=== PATIENT | male | born 1950 | race Caucasian/White ===

== ENCOUNTER → 2016-10-22 | Outpatient (CLI) | payer OTHER ==
[~2016-10-22] MED LIST: ALBU2SYP9 INH; ASPI81TA28 PO; CARV25TA2 PO; DOCU-94 PO; ERGO500037 PO; FLUT0.15; FLUT1INH INH; FRCT/ PO; GLCSR5 PO; IBUP600T44 PO; IMD/2 PO; LORA-741 PO; LOSA50TA6 PO; METF-384 PO; MOME6000; NITR0.4D6 PO; OMEP1POW2 PO; OXYC-106 PO; POLY335019 PO; RANI300T2 PO; SIMV20TA2 PO; TRAZ100T29 PO
--- NOTE | 2016-10-22 09:50 | DIAGNOSTIC IMAGING REPORT ---
CHEST 2 VIEWS ROUTINE HISTORY: Atypical chest pain. COMPARISON: None. FINDINGS: The lungs are clear. Cardiac silhouette is normal in size. No pleural effusions. No pneumothorax. IMPRESSION: No acute process. Electronically signed by: Nirav Pace M.D. 10/22/2016 9:49 AM
--- NOTE | 2016-10-22 16:16 | EXERCISE STRESS ECHO ---
*NOTICE TO RECEIVING DEMOCRAT AGENCY This information is strictly Confidential and protected under [place] law. [place] law prohibits you from making any further disclosure of this information unless further disclosure is expressly permitted by the written consent of the person to whom it pertains or is authorized by law. A general authorization for the release of medical or other information is not sufficient for this purpose. Hospital accepts no responsibility if the information is made available to any other person, INCLUDING THE PATIENT. Interpretation Summary * Name: CHEMO PATHAK I Study Date: 10/22/2016 09:53 AM BP: 172/92 mmHg * Patient Location: [facility] HR: 58 * : 1950 (M/d/yyyy) Gender: Male Height: 68 in * Age: 66 yrs Ethnicity: [place] Weight: 167 lb * Performed By: Silvia Mallory RDCS * * Reason For Study: CHEST PAIN * BSA: 1.9 m2 * History: CHEST PAIN * Suboptimal stress test due to inadequate maximum heart rate. * -- Conclusions -- * 1.Stress echocardiogram with no obvious mocardial ischemia at submaximal heart rate (73% MPHR) and low workload (4 METS). * 2. Test terminated due to dyspnea, no chest discomfort noted. * 3. Blunted HR and hypertensive BP response to exercise (peak BP 207/108 mm Hg). * 4. Normal resting ECG. No ST changes during exercise, Borderline inferior ST depresssion (1.0 mm) with transient T wave inversions during early recovery, resolved 6 minutes into recovery. * 5. Sporadic PVCs at baseline which increased during exrecise. * 6. Resting echo with moderately reduced systolic function (EF=45%). Small area of inferobasal akinesis and moderate global hypokinesis. Post-exercise there was minor augmentation of all visible brown (Inferior base not visualized) and minimal reduction in LV cavity size (EF increased to 60%). Findings weigh against major focal ischemia, however unable to exclude ischemia at higher workload. * The left ventricle is mildly dilated. * There is mild concentric left ventricular hypertrophy. * Grade I diastolic dysfunction, (abnormal relaxation pattern). * Left ventricular systolic function is moderately reduced. * Ejection Fraction = 40-45%. * There is mild to moderate global hypokinesis of the left ventricle. * Small area of inferobasal akinesis. * There is mild tricuspid regurgitation. * Right ventricular systolic pressure is elevated at 30-40mmHg. Procedure Details * ECHOAMRITA, CPT #28252 * A contrast injection of Definity was performed to improve assessment of LV function. * Contrast was injected into an intravenous site in the left arm. * One vial of Definity ultrasound contrast was diluted in normal saline to a total volume of 10 ml. A total of '4' ml of solution was administered during imaging. * Lot # [id number] of Definity utilized for procedure. * Expiration date APR 03. * The attending nurse who injected the contrast agent was LUZ PACE RN. Left Ventricle * The left ventricle is mildly dilated. * There is mild concentric left ventricular hypertrophy. * Left ventricular systolic function is moderately reduced. * Ejection Fraction = 40-45%. * There is mild to moderate global hypokinesis of the left ventricle. * Small area of inferobasal akinesis. Right Ventricle * The right ventricle is normal in size and function. Atria * The left atrial size is normal. * Right atrial size is normal. * The interatrial septum is intact with no evidence for an atrial septal defect. Mitral Valve * The mitral valve is normal in structure and function. * Significant mitral regurgitation is absent. Tricuspid Valve * The tricuspid valve is normal in structure and function. * There is mild tricuspid regurgitation. * Right ventricular systolic pressure is elevated at 30-40mmHg. Aortic Valve * The aortic valve is normal in structure and function. * There is no significant aortic regurgitation. Pulmonic Valve * The pulmonary valve is inadequately visualized, but the Doppler data is adequate for interpretation. * There is no significant pulmonary regurgitation. Great Vessels * The aortic root is normal size. * No obvious dissection could be visualized. Pericardium * There is no pericardial effusion. Stress Parameters * Rest heart rate was '58' BPM. * Rest blood pressure was '172/92' * Maximum heart rate achieved was 112 bpm. * Maximum heart rate was 73 % of maximum age-predicted heart rate. * Maximum blood pressure was '207/108' * Total exercise time was '2:34' * Maximum exercise MET level achieved was '4.60' METS * Maximum treadmill speed was '1.7' miles per hour. * Maximum treadmill elevation was '10.00'% grade. * Exercise was terminated due to 'SOB' Left Ventricular Diastolic Function * Grade I diastolic dysfunction, (abnormal relaxation pattern). MMode 2D Measurements and Calculations IVSd 1.3 cm IVSs 2.1 cm LVIDd 4.8 cm LVIDs 3.8 cm LVPWd 0.94 cm LVPWs 1.7 cm IVS/LVPW 1.4 FS 19.3 % EDV(Teich) 105.1 ml ESV(Teich) 63.4 ml EF(Teich) 39.7 % EDV(cubed) 107.4 ml ESV(cubed) 56.5 ml EF(cubed) 47.4 % % IVS thick 61.3 % % LVPW thick 83.9 % LV mass(C)d 193.8 grams LV mass(C)dI 102.4 grams/m\S\2 LV mass(C)s 324.1 grams LV mass(C)sI 171.2 grams/m\S\2 SV(Teich) 41.7 ml SI(Teich) 22.0 ml/m\S\2 SV(cubed) 50.9 ml SI(cubed) 26.9 ml/m\S\2 Ao root diam 3.1 cm Ao root area 7.6 cm\S\2 LA dimension 3.4 cm LA/Ao 1.1 LVAd ap4 36.3 cm\S\2 LVLd ap4 9.9 cm EDV(MOD-sp4) 112.1 ml EDV(sp4-el) 113.2 ml LVAs ap4 26.6 cm\S\2 LVLs ap4 9.4 cm ESV(MOD-sp4) 68.2 ml ESV(sp4-el) 64.1 ml EF(MOD-sp4) 39.2 % EF(sp4-el) 43.4 % LVAd ap2 35.0 cm\S\2 LVLd ap2 9.8 cm EDV(MOD-sp2) 105.7 ml EDV(sp2-el) 106.3 ml LVAs ap2 28.2 cm\S\2 LVLs ap2 9.4 cm ESV(MOD-sp2) 75.3 ml ESV(sp2-el) 71.9 ml EF(MOD-sp2) 28.8 % EF(sp2-el) 32.4 % LVLd %diff -0.67 % EDV(MOD-bp) 109.3 ml LVLs %diff 0.44 % ESV(MOD-bp) 71.3 ml EF(MOD-bp) 34.8 % SV(MOD-sp4) 43.9 ml SI(MOD-sp4) 23.2 ml/m\S\2 SV(MOD-sp2) 30.4 ml SI(MOD-sp2) 16.1 ml/m\S\2 SV(MOD-bp) 38.0 ml SI(MOD-bp) 20.1 ml/m\S\2 SV(sp4-el) 49.2 ml SI(sp4-el) 26.0 ml/m\S\2 SV(sp2-el) 34.4 ml SI(sp2-el) 18.2 ml/m\S\2 Doppler Measurements and Calculations MV E max helder 50.0 cm/sec MV A max helder 83.9 cm/sec MV E/A 0.60 MV dec time 0.27 sec Ao V2 max 142.3 cm/sec Ao max PG 8.1 mmHg Ao max PG (full) 5.0 mmHg LV V1 max PG 3.1 mmHg LV V1 max 87.8 cm/sec TR max helder 224.8 cm/sec
--- NOTE | 2016-10-26 13:42 | CODING QUERY MEDICAL NECESSITY ---
SUPPORTING DIAGNOSIS NEEDED A supporting diagnosis is required for the test/procedure performed on this patient in order for us to be reimbursed by the patient's insurance. Please provide a supporting diagnosis for the following test/procedure listed below next to the test name along with your signature. *If there is no additional diagnosis for this patient that would support the following test/procedure please document that below next to the test/procedure. Test(s)/Procedure(s) that require a supporting diagnosis: DOS 10/22 * Stress Echo/Stress Test DIAGNOSIS: Provider Signature: Date: Thank you Rani Bellamy Health Information Management Once completed, please kindly fax back to [phone] For questions please call [phone]
--- NOTE | 2016-11-25 14:56 | EXERCISE STRESS ECHO ---
*NOTICE TO RECEIVING LIBERTARIAN AGENCY This information is strictly Confidential and protected under [place] law. [place] law prohibits you from making any further disclosure of this information unless further disclosure is expressly permitted by the written consent of the person to whom it pertains or is authorized by law. A general authorization for the release of medical or other information is not sufficient for this purpose. Hospital accepts no responsibility if the information is made available to any other person, INCLUDING THE PATIENT. Interpretation Summary * Name: CHEMO PATHAK I Study Date: 10/22/2016 09:53 AM BP: 172/92 mmHg * Patient Location: [facility] HR: 58 * : 1950 (M/d/yyyy) Gender: Male Height: 68 in * Age: 66 yrs Ethnicity: [place] Weight: 167 lb * Performed By: Silvia Mallory RDCS * * Reason For Study: CHEST PAIN * BSA: 1.9 m2 * History: CHEST PAIN * Suboptimal stress test due to inadequate maximum heart rate. * -- Conclusions -- * 1.Stress echocardiogram with no obvious myocardial ischemia at submaximal heart rate (73% MPHR) and low workload (4 METS). * 2. Test terminated due to dyspnea, no chest discomfort noted. * 3. Blunted HR and hypertensive BP response to exercise (peak BP 207/108 mm Hg). * 4. Normal resting ECG. No ST changes during exercise, Borderline inferior ST depresssion (1.0 mm) with transient T wave inversions during early recovery, resolved 6 minutes into recovery. * 5. Sporadic PVCs at baseline which increased during exrecise. * 6. Resting echo with moderately reduced systolic function (EF=45%). Small area of inferobasal akinesis and moderate global hypokinesis. Post-exercise there was minor augmentation of all visible brown (Inferior base not visualized) and minimal reduction in LV cavity size (EF increased to 60%). Findings weigh against major focal ischemia, however unable to exclude ischemia at higher workload. * The left ventricle is mildly dilated. * There is mild concentric left ventricular hypertrophy. * Grade I diastolic dysfunction, (abnormal relaxation pattern). * Left ventricular systolic function is moderately reduced. * Ejection Fraction = 40-45%. * There is mild to moderate global hypokinesis of the left ventricle. * Small area of inferobasal akinesis. * There is mild tricuspid regurgitation. * Right ventricular systolic pressure is elevated at 30-40mmHg. Procedure Details * ECHOEX, CPT #03498 * A contrast injection of Definity was performed to improve assessment of LV function. * Contrast was injected into an intravenous site in the left arm. * One vial of Definity ultrasound contrast was diluted in normal saline to a total volume of 10 ml. A total of '4' ml of solution was administered during imaging. * Lot # [id number] of Definity utilized for procedure. * Expiration date APR 03. * The attending nurse who injected the contrast agent was LUZ PACE RN. Left Ventricle * The left ventricle is mildly dilated. * There is mild concentric left ventricular hypertrophy. * Left ventricular systolic function is moderately reduced. * Ejection Fraction = 40-45%. * There is mild to moderate global hypokinesis of the left ventricle. * Small area of inferobasal akinesis. Right Ventricle * The right ventricle is normal in size and function. Atria * The left atrial size is normal. * Right atrial size is normal. * The interatrial septum is intact with no evidence for an atrial septal defect. Mitral Valve * The mitral valve is normal in structure and function. * Significant mitral regurgitation is absent. Tricuspid Valve * The tricuspid valve is normal in structure and function. * There is mild tricuspid regurgitation. * Right ventricular systolic pressure is elevated at 30-40mmHg. Aortic Valve * The aortic valve is normal in structure and function. * There is no significant aortic regurgitation. Pulmonic Valve * The pulmonary valve is inadequately visualized, but the Doppler data is adequate for interpretation. * There is no significant pulmonary regurgitation. Great Vessels * The aortic root is normal size. * No obvious dissection could be visualized. Pericardium * There is no pericardial effusion. Stress Parameters * Rest heart rate was '58' BPM. * Rest blood pressure was '172/92' * Maximum heart rate achieved was 112 bpm. * Maximum heart rate was 73 % of maximum age-predicted heart rate. * Maximum blood pressure was '207/108' * Total exercise time was '2:34' * Maximum exercise MET level achieved was '4.60' METS * Maximum treadmill speed was '1.7' miles per hour. * Maximum treadmill elevation was '10.00'% grade. * Exercise was terminated due to 'SOB' Left Ventricular Diastolic Function * Grade I diastolic dysfunction, (abnormal relaxation pattern). MMode 2D Measurements and Calculations IVSd 1.3 cm IVSs 2.1 cm LVIDd 4.8 cm LVIDs 3.8 cm LVPWd 0.94 cm LVPWs 1.7 cm IVS/LVPW 1.4 FS 19.3 % EDV(Teich) 105.1 ml ESV(Teich) 63.4 ml EF(Teich) 39.7 % EDV(cubed) 107.4 ml ESV(cubed) 56.5 ml EF(cubed) 47.4 % % IVS thick 61.3 % % LVPW thick 83.9 % LV mass(C)d 193.8 grams LV mass(C)dI 102.4 grams/m\S\2 LV mass(C)s 324.1 grams LV mass(C)sI 171.2 grams/m\S\2 SV(Teich) 41.7 ml SI(Teich) 22.0 ml/m\S\2 SV(cubed) 50.9 ml SI(cubed) 26.9 ml/m\S\2 Ao root diam 3.1 cm Ao root area 7.6 cm\S\2 LA dimension 3.4 cm LA/Ao 1.1 LVAd ap4 36.3 cm\S\2 LVLd ap4 9.9 cm EDV(MOD-sp4) 112.1 ml EDV(sp4-el) 113.2 ml LVAs ap4 26.6 cm\S\2 LVLs ap4 9.4 cm ESV(MOD-sp4) 68.2 ml ESV(sp4-el) 64.1 ml EF(MOD-sp4) 39.2 % EF(sp4-el) 43.4 % LVAd ap2 35.0 cm\S\2 LVLd ap2 9.8 cm EDV(MOD-sp2) 105.7 ml EDV(sp2-el) 106.3 ml LVAs ap2 28.2 cm\S\2 LVLs ap2 9.4 cm ESV(MOD-sp2) 75.3 ml ESV(sp2-el) 71.9 ml EF(MOD-sp2) 28.8 % EF(sp2-el) 32.4 % LVLd %diff -0.67 % EDV(MOD-bp) 109.3 ml LVLs %diff 0.44 % ESV(MOD-bp) 71.3 ml EF(MOD-bp) 34.8 % SV(MOD-sp4) 43.9 ml SI(MOD-sp4) 23.2 ml/m\S\2 SV(MOD-sp2) 30.4 ml SI(MOD-sp2) 16.1 ml/m\S\2 SV(MOD-bp) 38.0 ml SI(MOD-bp) 20.1 ml/m\S\2 SV(sp4-el) 49.2 ml SI(sp4-el) 26.0 ml/m\S\2 SV(sp2-el) 34.4 ml SI(sp2-el) 18.2 ml/m\S\2 Doppler Measurements and Calculations MV E max helder 50.0 cm/sec MV A max helder 83.9 cm/sec MV E/A 0.60 MV dec time 0.27 sec Ao V2 max 142.3 cm/sec Ao max PG 8.1 mmHg Ao max PG (full) 5.0 mmHg LV V1 max PG 3.1 mmHg LV V1 max 87.8 cm/sec TR max helder 224.8 cm/sec
== END | disposition home or self-care (01) ==
LOC: C.CPL 08:55
DX: I10 Essential (primary) hypertension (principal); R07.9 Chest pain, unspecified; R06.00 Dyspnea, unspecified

== ENCOUNTER → 2017-03-09 | Day surgery (SDC) | payer OTHER ==
[~2017-03-09] VITALS: Ht 172.7 cm; Wt 78.3 kg
[~2017-03-09] MED LIST changes: +D5W AND 1/2NSS 1,000 ML IV SCH; +OPTIRAY 320 IV PRN; +SODIUM CHLORIDE 0.9% IV SCH
[2017-03-09 07:05] VITALS: BP 137/69; PULSE 63; TEMP 37; O2SAT 97; Ht 172.7 cm; Wt 78.3 kg
--- NOTE | 2017-03-09 10:44 | DIAGNOSTIC IMAGING REPORT ---
CT ANGIOGRAM OF THE ABDOMEN AND PELVIS WITH BILATERAL LOWER EXTREMITY RUNOFF COMBO CLINICAL HISTORY: Peripheral vascular disease. COMPARISON STUDY: No priors. TECHNIQUE: Before and following the IV administration of 118 cc of Optiray 320, CT angiogram of the abdomen and pelvis with bilateral lower externally runoff was performed from the lung bases to the feet. Images are reviewed in the axial, sagittal, and coronal planes. 3-D MIPS images are created and assessed. IV contrast was administered without complication. CT DOSE: 2291.19 mGy.cm FINDINGS: Lower chest: The heart is enlarged and without pericardial effusion. The coronary arteries are densely calcified. Emphysematous change is suggested at the lung bases. No airspace consolidation or pleural effusion is identified. There is a small hiatal hernia. Liver: The contrast-enhanced liver is normal in size and contour. The liver demonstrates diffusely diminished attenuation consistent with hepatic steatosis. Fatty sparing is present adjacent to gallbladder fossa. There is no intrahepatic or ductal dilatation. The main portal veins are patent. Gallbladder: Unremarkable. Spleen: Top normal in size and normal in attenuation noting heterogeneous arterial phase enhancement. There are small calcified splenic granulomas. Pancreas: Atrophic and grossly unremarkable. Adrenal glands: Unremarkable. Kidneys: There is a 1.3 cm nonobstructing calculus in the upper pole of the left kidney. No right renal calculi are identified on the unenhanced series. The contrast enhanced kidneys are atrophic and without hydronephrosis. The kidneys enhance symmetrically. Numerous foci of cortical scarring are present in the left kidney. 2 exophytic cyst arises from the right kidney measuring up to 10 mm. Abdominal aorta and iliac arteries: There is advanced atherosclerotic calcification of the abdominal aorta and iliac arteries. The abdominal aorta and iliac arteries are patent. There is less than 50% stenosis within the right common iliac artery seen on image #271 secondary to soft plaque. No aneurysm is seen and no dissection is identified. Major branches of the abdominal aorta: The celiac trunk and inferior mesenteric arteries are widely patent. There is focal high-grade stenosis (approximately 75%) of the proximal superior mesenteric artery approximately 10 mm from its origin. The remainder of the superior mesenteric artery is widely patent. Hepatic arterial anatomy is conventional. The splenic artery is widely patent. There are 2 left renal arteries and 3 right renal arteries. The renal arteries are patent bilaterally with no evidence of high-grade stenosis. Right lower extremity runoff: There is advanced atherosclerotic calcification and irregularity seen throughout the arteries of the right lower extremity. There is approximately 50% stenosis within the right common femoral artery seen on image #392. The right profunda femoris artery is widely patent. There is approximately 50% stenosis at the origin of the right superficial femoral artery seen on image #432. There is advanced atherosclerotic irregularity with moderate diffuse luminal narrowing (approximately 50%) which extends approximately 5 cm seen involving the mid to distal superficial femoral artery. The popliteal artery is patent. There is three-vessel runoff to the foot. The calf arteries are diminutive, and there is diffuse atherosclerotic irregularity. No focal stenosis is seen. The dorsalis pedis artery is widely patent. Left lower extremity runoff: There is advanced atherosclerotic calcification and irregularity seen throughout the arteries of the left lower extremity. There is less than 50% luminal narrowing within the left common femoral artery secondary to atherosclerotic plaque. There is approximately thank you percent stenosis at the origin of the left common femoral artery as seen on axial image #431. The left profunda femoris artery is patent. There is atherosclerotic irregularity throughout the mid to distal left superficial femoral artery with no foci of high-grade stenosis identified. The left popliteal artery is patent. There is three-vessel runoff to the left foot. The calf arteries appear diminutive and demonstrate atherosclerotic irregularity with no foci of high-grade stenosis identified. The left dorsalis pedis artery is patent. Bowel: The small bowel and colon are normal in course and caliber. There is moderate colonic fecal retention. The appendix is well-visualized and normal. Peritoneum: There is no intraperitoneal free air or abdominal ascites. Lymphadenopathy: None. Pelvic viscera: The bladder, prostate, and seminal vesicles are normal as visualized. Skeletal structures: The skeletal structures are osteopenic. Mild lumbosacral spondylosis is observed. Degenerative change is seen in the hips and sacroiliac joints. No lytic or blastic bony lesions are seen. A cortical lag screw is present within the distal right femoral shaft and there is chronic posttraumatic deformity. Lower extremity soft tissues: The lower extremity musculature appears atrophic. No concerning soft tissue lesion is identified. There is asymmetric fatty atrophy is seen within the right vastus lateralis muscle, possibly related to remote injury. IMPRESSION: 1. The abdominal aorta is normal in caliber. No aneurysm or dissection is seen. 2. There is focal high-grade stenosis within the proximal superior mesenteric artery. 3. Peripheral vascular disease is identified within the right and left lower extremity with foci of approximately 50% stenosis seen within the right common femoral artery, as well as at the origin of both superficial femoral arteries. See discussion for detailed findings. 4. There is three-vessel runoff to the foot bilaterally. 5. Cardiomegaly and suspect emphysema. 6. Nonobstructing left renal calculus. 7. Hepatic steatosis. 8. Additional findings as detailed above. Electronically signed by: Gilmer Varma M.D. 03/09/2017 10:43 AM Dictated Date/Time: 03/09/2017 10:19 AM
== END | disposition home or self-care (01) ==
LOC: C.MTU 06:46 → EDSTATUS 07:00
PROVIDERS: ATTEND Surgery Vascular Surgery
DX: I65.29 Occlusion and stenosis of unspecified carotid artery (principal); I70.223 Atherosclerosis of native arteries of extremities with rest pain, bilateral legs; K55.1 Chronic vascular disorders of intestine; I51.7 Cardiomegaly; N20.0 Calculus of kidney; K76.0 Fatty (change of) liver, not elsewhere classified

== ENCOUNTER 2019-09-24 07:00 | Inpatient (IN) ==
[~2019-09-24 07:00] MED LIST changes: -ALBU2SYP9 INH; -ASPI81TA28 PO; -CARV25TA2 PO; -D5W AND 1/2NSS 1,000 ML IV SCH; -DOCU-94 PO; -ERGO500037 PO; -FLUT0.15; -FLUT1INH INH; -FRCT/ PO; -GLCSR5 PO; -IBUP600T44 PO; -IMD/2 PO; -LORA-741 PO; -LOSA50TA6 PO; -METF-384 PO; -MOME6000; -NITR0.4D6 PO; -OMEP1POW2 PO; -OPTIRAY 320 IV PRN; -OXYC-106 PO; -POLY335019 PO; -RANI300T2 PO; +RAPID SEQUENCE INDUCTION BAG ONE; -SIMV20TA2 PO; -SODIUM CHLORIDE 0.9% IV SCH; -TRAZ100T29 PO
[2019-09-24] MEDS ORDERED: fentaNYL citrate 100 MCG/2 ML VIAL ONE ×2 (07:07→07:39)
[2019-09-24] MEDS ORDERED: MIDAZOLAM HCL 5 MG/ML VIAL ONE (07:07)
[2019-09-24 07:28] LABS: iSTAT Creatinine 1.1 mg/dl (0.6-1.3); iSTAT Hemoglobin 16.3 g/dl (14.0-18.0); iSTAT Ionized Calcium 1.18 mmol/l (1.12-1.32); iSTAT Potassium 5.9 mEq/L (3.3-5.0)
[2019-09-24] MEDS ORDERED: SODIUM CHLORIDE 0.9% 1000ML 1,000 ML IV SCH ×2 (07:30→09:15)
[2019-09-24] MEDS ORDERED: HEPARIN (PORCINE) 1000 UNIT/ML 10 ML (CATH LAB USE ONLY) ONE (07:38)
[2019-09-24] MEDS ORDERED: NiCARDipine HCL INJ 2.5 MG/ML 10 ML AMP ONE (07:38)
--- NOTE | 2019-09-24 07:38 | XRay Report ---
XR chest 1V portable HISTORY: 69 years-old Male Chest pain acute atypical chest pain COMPARISON: Chest radiographs 10/22/2016 TECHNIQUE: Portable AP view of the chest FINDINGS: Endotracheal tube terminates 4.2 cm superior to the rohini. Calcified plaque of the thoracic aortic a rch. No pneumothorax, pleural effusion, focal airspace consolidation or overt pulmonary edema. Cardia c silhouette is enlarged. Degenerative changes of the shoulders and spine. IMPRESSION: 1. Endotracheal tube terminates 4.2 cm superior to the rohini. 2. Cardiomegaly. The above report was generated using voice recognition software. It may contain grammatical, syntax o r spelling errors. Electronically signed by: Damon Cao M.D. 09/24/2019 7:36 AM
[2019-09-24] MEDS ORDERED: MIDAZOLAM HCL 1 MG/ML 2ML VIAL ONE (07:39)
[2019-09-24] MEDS ORDERED: NITROGLYCERIN/D5W 100MCG/ML 20ML SYR ONE (07:40)
[2019-09-24 07:52] LABS: INR 1.3 (0.9-1.1); Partial Thromboplastin Ratio 0.9; Partial Thromboplastin Time 25.4 Seconds (21.0-31.0)
[2019-09-24 08:00] LABS: Basophils # (auto) 0.01 K/uL (0-0.2); Basophils % (auto) 0.1 %; Eosinophils # (auto) 0.11 K/uL (0-0.5); Eosinophils % (auto) 1.3 %; Hematocrit (blood only) 48.4 % (42-52); Hemoglobin 17.1 g/dL (14.0-18.0); Immature Granulocytes # (auto) 0.02 K/uL (0.00-0.02); Immature Granulocytes % (auto) 0.2 %; Lymphocytes # (auto) 1.23 K/uL (1.2-3.4); Lymphocytes % (auto) 14.5 %; Mean Corpuscular Hemoglobin 32.3 pg (25-34); Mean Corpuscular Hgb Conc 35.3 g/dL (32-36); Mean Corpuscular Volume 91.3 fL (80-100); Monocytes # (auto) 0.59 K/uL (0.11-0.59); Monocytes % (auto) 6.9 %; Neutrophils # (auto) 6.55 K/uL (1.4-6.5); Platelet Count 95 K/uL (130-400); Platelet Estimate Decreased (Normal); RDW Coefficient of Variation 14.3 % (11.5-14.5); RDW Standard Deviation 46.8 fL (36.4-46.3); White Blood Count 8.51 K/uL (4.8-10.8)
[2019-09-24] MEDS ORDERED: DOPAMINE / D5W 400 MG/250 ML BAG IV SCH (08:00)
[2019-09-24 08:16] LABS: Albumin Globulin Ratio 1.3 (0.9-2); Albumin Level 3.4 gm/dl (3.4-5.0); BUN Creatinine Ratio 13.1 (10-20); Bilirubin,Total 0.9 mg/dl (0.2-1); Calcium 8.5 mg/dl (8.5-10.1); Creatine Kinase MB 3.3 ng/ml (0.5-3.6); Creatinine Clr Calc Pharmacy 62.6 ml/min; Est GFR (African American) 70.1; Est GFR (Non-African American) 60.5; Globulin 2.6 gm/dl (2.5-4.0); Magnesium 1.4 mg/dl (1.8-2.4); Potassium 6.1 mmol/L (3.5-5.1); Thyroid Stimulating Hormone 1.01 uIu/ml (0.300-4.500); Troponin I 0.016 ng/ml (0-0.045)
[2019-09-24] MEDS ORDERED: SODIUM BICARB 8.4% INJ 50 MEQ/50 ML SYR ONE (08:16)
[2019-09-24] MEDS ORDERED: CALCIUM CHLORIDE 10% 10 ML SYR IV ONE (08:16)
[2019-09-24] MEDS ORDERED: MAG SULFATE 50% 1GM/2ML VIAL IV ONE (08:30)
[2019-09-24] MEDS ORDERED: INSULIN HUMAN REGULAR PER UNIT 10 UNITS in SYRINGE 9.9 ML IV ONE (08:45)
[2019-09-24] MEDS ORDERED: HydrALAZINE HCL 20 MG/ML VIAL ONE (08:47)
[2019-09-24 08:54] LABS: Beta-Hydroxybutyrate 6.03 mg/dl (0.2-2.81)
[2019-09-24] MEDS ORDERED: ICU PROTOCOL FOR HYPERGLYCEMIA PRN ×2 (09:07→09:28)
--- NOTE | 2019-09-24 09:17 | Pre Anesthesia Assessment ---
Date of Service September 24, 2019 Pre Sedation Assessment Vital Signs Temp Pulse Pulse Resp BP BP Pulse Ox 09/24/19 08:18 20 09/24/19 08:10 69 100 09/24/19 07:49 80 16 99 09/24/19 07:43 80 16 78/52 L 96 09/24/19 07:41 80 100 09/24/19 07:40 80 100 09/24/19 07:39 80 100 09/24/19 07:32 80 16 97 09/24/19 07:21 80 18 120/70 96 09/24/19 07:01 97.7 F 80 18 86/37 L 96 Cardiovascular + regular rhythm Respiratory + respiratory effort normal Pre-Sedation Airway Assessment Smoking Status: Unknown if ever smoked Hx Sleep Apnea: No Hx Difficult Intubation: No Short, Thick Neck: No Thyromental Distance: > or= 3.5 Finger Breadths Oral Cavity: + WNL Mallampati Class: III ASA: ASA4 Procedure Planning Contraindications for Sedation: none Current Medications Reviewed: Yes Notes The planned sedation has been discussed with the patient. Informed Consent was obtained. I have identified the patient, determined the appropriateness of sedation and have assessed the patient immediately prior to the procedure. All medicine(s) and interventions are by my order.
--- NOTE | 2019-09-24 09:18 | Post Anesthesia Assessment ---
Date of Service September 24, 2019 Post Sedation Assessment Vital Signs Temp Pulse Pulse Resp BP BP Pulse Ox 09/24/19 08:18 20 09/24/19 08:10 69 100 09/24/19 07:49 80 16 99 09/24/19 07:43 80 16 78/52 L 96 09/24/19 07:41 80 100 09/24/19 07:40 80 100 09/24/19 07:39 80 100 09/24/19 07:32 80 16 97 09/24/19 07:21 80 18 120/70 96 09/24/19 07:01 97.7 F 80 18 86/37 L 96 Recovery Score Activity: Moves 4 extremities Respiration: Deep Breath/Cough Circulation: +/-20% PreAnes Value Consciousness: Nonresponsive Oxygen Saturation: O2 needed for >90% Discharge Sedation Level of Care: Higher Level of Care Post Sedation Plan On clinical assessment, the patient appears to have tolerated the sedation without complications. Patient is recovering as anticipated. Patient will continue to be monitored by nursing and may be discharged when sedation discharge criteria are met per below protocol. Upon Completions of procedure up to 15 minutes continue every 5 minute vital signs and the P.A.R. score; then discharge to a Phase I or Fast Track to Phase II per the following guidelines: * Discharge Patient to appropriate Phase II area if PAR is 8 or greater or return to pre- procedure baseline. The post - procedure orders will be as directed. * If PAR score is less than 8 or not return to pre-procedure baseline then patient will follow Phase I monitoring till PAR is reached for Phase II. The Phase I may be done in procedure room or may call to secure a Phase I area. * If naloxone or flumazenil are used for reversal, hold in Phase I for continued monitoring from when last reversal dose was given for a minimum of 60 minutes or longer pending the nurse and/or physician discretion of patient condition before discharge to Phase II. Please call the Sedation Physician to re-evaluate and complete post-note for discharge to Phase II area. Do NOT discharge from procedure sedation or Phase 1 until post- sedation evaluation note is complete by procedure /sedation MD Sedation Discharge Instructions to be given to the patient at discharge to home.
--- NOTE | 2019-09-24 09:27 | CT Scan Report ---
CT head/brain wo con CLINICAL HISTORY: 69 years-old Male with altered mental status. Acutely altered mental status TECHNIQUE: Multiple axial CT images of the head were obtained without contrast. A dose lowering tech nique was utilized adhering to the principles of ALARA. CT DOSE: 1228.53 mGy.cm COMPARISON: CTA of the head 06/18/2016, brain MRI 06/17/2016 FINDINGS: Motion degraded exam. The study was repeated. Age-related involutional changes. Patchy white matter h ypodensities suggest chronic microvascular ischemic disease. 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 Cerebral vascular calcifications noted. No acute intracranial he morrhage, midline shift, intracranial mass, hydrocephalus, territorial ischemia or abnormal extra-axi al collection. No acute calvarial fracture. Mastoid air cells are clear. Secretions are noted within the nasal turbi nates and nasal pharynx. Endotracheal tube is noted, partially imaged. Soft tissues are within normal limits. IMPRESSION: 1. Motion degraded exam without acute intracranial abnormality identified. 2. Partially imaged endotracheal tube with nasopharyngeal secretions. The above report was generated using voice recognition software. It may contain grammatical, syntax o r spelling errors. Electronically signed by: Damon Cao M.D. 09/24/2019 9:26 AM
[2019-09-24] MEDS ORDERED: MAGNESIUM SULFATE / D5W 1 GM/100 ML BAG IV ONE (09:35)
--- NOTE | 2019-09-24 09:44 | Cardiac Catheterization ---
[facility] Data: [facility] Cardiac Status Clinical evaluation leading to the procedure CAD Presenation: Unstable angina Anginal Classification: CCS IV Heart Failure: No Cardiogenic Shock within 24 Hours: Yes Cardiac Arrest within 24 Hours: No Imaging Studies Past 6 Months: No Stress Studies Past 6 Months: No Diagnostic Physicians Name: Shaquille Hartman MD Status: Elective Closure Device Percutaneous Entry Location: Femoral Closure Device: Mynx and Radial Band Recommendations: Medical Therapy and/or Counseling Intraprocedure Events Significant Disection: No Perforation: No Cardiac Cath Procedure Full Procedure Date September 24, 2019 Pre-Procedure Diagnosis Pre-Procedure Diagnosis: Acute Coronary Syndrome and Cardiothoracic Symptom (heart block) AUC Score AUC Score: 7 Post-Procedure Diagnosis Post-Procedure Diagnosis: Moderate CAD, Normal LV Systolic Function and Normal Intracardiac Pressures Procedure(s) Performed Procedure(s) Performed: Coronary Angiography, Left Heart Cath, LV Angiography and Temporary Pacemaker [employer] Software Developer Shaquille Hartman MD Assistant Manager Trainee(s) Enmanuel Estimated Blood Loss Estimated Blood Loss: 15 Medication(s) Medication(s): Fentanyl, Heparin, Lidocaine 1% and Versed Medication(s): dopamine, hydralazine Summary of Findings Indication: Suspected ACS Cardiac risk factors, syncope at home in the setting of chest pressure and bradycardia/heart block. Intubated in the ED following transcutaneous pacing, unresponsiveness and hemodynamic instability requiring dopamine. Access: 6 Fr slender right radial artery, 6 Fr right common femoral artery, 6 Fr right common femoral vein Catheters: JL4, JR4, pigtail Patient arrived to [facility] on dopamine infusion being transcutaneously paced. 6 Fr right common femoral vein sheath placed and transvenous pacer placed. Right radial artery access obtained. Attempted to perform coronary angiography via radial artery but unable to navigate catheter to aorta in the setting of possible brachial artery dissection. Catheter removed and femoral access obtained. During procedure hypertensive up to 220s. Dopamine discontinued. Hyperkalemia treated with sodium bicarbonate, insulin and received magnesium. Had return of sinus rhythm in the 70s. Pacemaker back-up settings VVI 50 bpm, output of 5 mA. During procedure patient with nonpurposeful movements and unable to follow commands. Sent for head CT post procedure. Findings: LM -moderate caliber, luminal irregularities LAD -medium caliber, mild diffuse proximal to mid disease, 50% stenosis and small distal LAD with associated myocardial bridging. LAD extends around apex. Inferior branch of small second diagonal with moderate disease. Circumflex -medium caliber vessel, proximal to mid luminal irregularities. Distal AV groove portion small with diffuse up to 70% disease prior to small PLB. High OM1 with 40 to 50% proximal stenosis. Medium caliber OM 2 with 50 to 60% stenosis. RCA -dominant, large caliber, 20% mid segment disease, distal luminal irregularities, 20% ostial PDA. LVEDP -16 Arterial Closure: TR band, Mynx Summary: 1. Moderate nonobstructive coronary artery disease -50% small distal LAD with myocardial bridging High OM1 40 to 50% proximal OM2 50 to 60% Small distal circumflex 60 to 70% 2. Normal intracardiac filling pressure 3. Successful transvenous pacemaker placement. Final settings, VVI 50 bpm, 5 mA Recommendations: Admit to ICU Further evaluation for reversible, nonischemic causes of heart block. Continue to hold beta-ramón. Check echocardiogram Evaluation by EP for possible pacemaker tomorrow Hemodynamics Rest Ao:: 150/93/120 Final Ao: 199/85/128 LV: 194/16 Recommendations Recommendations: Medical Therapy and/or Counseling Specimens Specimens: None Radiation Exposure (mGy) 1344 Contrast (mls) 95 Fluids (cc crystalloids) Fluids (cc crystalloids): 92 Drains Drains: None Anesthesia Moderate Procedural Complication(s) None Disposition PCU I attest to the content of the Intraoperative Record and any orders documented therein. Any exceptions are noted below. [facility] Card Cath Procedure Codes Cardiac Catheterization Procedure 1: Cardiovascular Cath Procedures: 14162 Coronaries and LHC (+/-LV) Therapeutic Services & Ancillary Proc Procedure 1: Cardiovascular Tx and Anc Procedures: 18732 Temp Pacer Insert Moderate Sedation Procedure 1: Sedation/Anesthesia: 74758 Mod Sedation by the same physician;Init15 Min Child Age 5 & Up Procedure 2: Sedation/Anesthesia: 13127 Mod Sedation by the same physician; Ea [id number] Minutes PG Care Time/CCT Total # of Minutes Spent Total Time Spent with Patient: Total time spent is greater than 50% in coordination of care (as documented) at patient's floor/unit and/or counseling patient:
--- NOTE | 2019-09-24 10:05 | Cardiology Consultation ---
Date of Consultation September 24, 2019 Assessment & Plan (1) Symptomatic bradycardia: 2. Apparent high degree AV block 3. Transient cardiogenic shock 4. Moderate nonobstructive coronary artery disease 5. Hyperkalemia, hypomagnesemia 6. Hypertension 7. Type 2 diabetes No evidence of acute ischemic heart disease on catheterization. Etiology of patient's symptomatic bradycardia/heart block unclear but potentially related to electrolyte abnormalities, high-dose beta-ramón. Further evaluation for potential reversible causes, thyroid, Lyme pending. Check echocardiogram. Continue to hold beta-ramón. Correct electrolytes. Further evaluation by EP tomorrow. (2) Quit smoking: (3) Smoking greater than 30 pack years: History of Present Illness Attending Physician: Pipo Garcia DO History of Present Illness Mr. Ambrosio was seen in the setting of a heart alert called in the ED. At time of arrival patient was intubated, sedated being transcutaneously paced and on 5 mcg of dopamine. History obtained from ED physician and staff. Reportedly patient had had a syncopal episode within the last week or 2. Today reportedly had chest discomfort and presyncopal symptoms while sitting watching TV. Upon EMS arrival bradycardic with indeterminate underlying rhythm. Hypotensive and transcutaneous pacing started. On arrival to ED initially awake, alert, conversant with systolic pressures in the 80s while being transcutaneously paced. One EKG in between pacing with what appears to be just P waves. Later reportedly became increasingly hypotensive, unresponsive requiring intubation. Taken emergently to Acoustic Sensor Operator for transvenous pacemaker. Pacemaker placed via right common femoral vein. Patient had return of sinus rhythm with heart rate in the 70s. Coronary angiography revealed only moderate nonobstructive disease. Patient hypertensive during catheterization dopamine discontinued and received IV hydralazine. Hyperkalemic to 6.1 and treated with bicarbonate, insulin. Magnesium supplemented. At the end the procedure patient remained in sinus rhythm, transvenous pacemaker left in place at VVI 50 bpm. During procedure there was concern for possible neurologic event the setting of nonpurposeful movements, nonresponsiveness was sent for head CT prior to transfer to ICU. Allergies Allergy/AdvReac Type Severity Reaction Status Date / Time No Known Allergies Allergy Verified 09/24/19 07:40 Home Medications Home Medications Medication Instructions Recorded Confirmed Type albuterol sulfate [Ventolin HFA] 2 puff INHALATION Q4H PRN 09/24/19 09/24/19 History aspirin 81 mg PO DAILY 09/24/19 09/24/19 History carvedilol 25 mg PO BID 09/24/19 09/24/19 History cholecalciferol (vitamin D3) 5,000 unit PO DAILY 09/24/19 09/24/19 History [Vitamin D3] [id number] 0 ea INHALATION DAILY 09/24/19 09/24/19 History [Trelegy Ellipta] gabapentin 300 mg PO TID 09/24/19 09/24/19 History lorazepam 0.5 mg PO DAILY PRN 09/24/19 09/24/19 History losartan 50 mg PO DAILY 09/24/19 09/24/19 History metformin 500 mg PO QDD 09/24/19 09/24/19 History nitroglycerin 0.4 mg SUBLINGUAL UD PRN 09/24/19 09/24/19 History omeprazole 40 mg PO DAILY 09/24/19 09/24/19 History oxycodone-acetaminophen 1 tab PO QID PRN 09/24/19 09/24/19 History ropinirole 1 mg PO DAILY 09/24/19 09/24/19 History simvastatin 20 mg PO DAILY 09/24/19 09/24/19 History trazodone 150 mg PO HS 09/24/19 09/24/19 History Patient History Medical History Anemia Asthma Atherosclerosis Diabetes Hyperkalemia (Resolved) Kidney stones Thrombocytopenia Family History Other Diabetes Hypertension Social History Preferred Language: Montenegrin Communication Ability: Effective Beliefs That Will Affect Care: None marital status: Current Living Situation: Spouse current occupational status: retired Other Information That Helps Us Care for You: No Feels Safe at Home: Yes Safety Concerns: Feels Safe At This Time Smoking Status: Former smoker Hx Alcohol Use: Yes Alcohol type: beer Hx Substance Use: Yes substance use type: does not use Review of Systems Review of Systems: Unobtainable due to endotracheal tube Physical Exam Physical Exam: General: Intubated sedated HEENT: Sclerae anicteric, mucous membranes moist Lungs: Clear to auscultation bilaterally Cardiac: Regular rate and rhythm, no murmurs. Abdomen: Soft, nontender, nondistended Extremities: Warm, well perfused, no edema. 2+ radial pulses Skin: No rashes or lesions. Results & Data Vital Signs (Past 12 Hours) Vital Signs Temp Pulse Pulse Resp BP BP Pulse Ox 09/24/19 09:16 100 H 21 77 L 09/24/19 08:54 74 100 09/24/19 08:18 20 09/24/19 08:10 69 100 09/24/19 07:49 80 16 99 09/24/19 07:43 80 16 78/52 L 96 09/24/19 07:41 80 100 09/24/19 07:40 80 100 09/24/19 07:39 80 100 09/24/19 07:32 80 16 97 09/24/19 07:21 80 18 120/70 96 09/24/19 07:01 97.7 F 80 18 86/37 L 96 PG Care Time/CCT Total # of Minutes Spent Total Time Spent with Patient: Total time spent is greater than 50% in coordination of care (as documented) at patient's floor/unit and/or counseling patient:
--- NOTE | 2019-09-24 10:13 | XRay Report ---
XR chest 1V portable HISTORY: 69 years-old Male lines status post extubation COMPARISON: Chest radiograph 09/24/2019 TECHNIQUE: Supine AP view of the chest FINDINGS: Status post removal of the endotracheal tube. Calcified plaque of the thoracic aortic arch. Cardiac m ediastinal and hilar silhouettes are unchanged. No pneumothorax, pleural effusion, focal airspace con solidation or overt pulmonary edema. Degenerative changes of the shoulders and spine. IMPRESSION: 1. Status post extubation. 2. No acute processes of the chest The above report was generated using voice recognition software. It may contain grammatical, syntax o r spelling errors. Electronically signed by: Damon Cao M.D. 09/24/2019 10:12 AM
--- NOTE | 2019-09-24 10:24 | Critical Care Consultation ---
Date of Consultation September 24, 2019 Assessment & Plan (1) Symptomatic bradycardia: Reason Critically Ill: 69-year-old male with symptomatic bradycardia probable complete heart block PLAN: Neuro: Syncope -Likely cardiogenic in origin Resp: Asthma -Patient denied smoking history however he exhibits clinical signs of longstanding tobacco use including fingernail clubbing CV: Complete heart block -At risk for Lyme disease given prior occupation and hunting activities -Continue transvenous pacemaker -Currently [place] rhythm not electrically paced -Holding beta-ramón Fluids/Renal: Hyperkalemia -In isolation without elevated creatinine will recheck labs ID: Skin rash most consistent with tinea corporis -Differential includes pityriasis, psoriasis -Given poor glycemic control we will use a topical fungal medication at this time Onychomycoses of lower extremity nails -Defer treatment to primary care GI/Nutrition: Heart healthy diet as tolerated -Plan n.p.o. once decision is made regarding possible permanent pacemaker placement Heme: Increased RDW -We will defer to primary care physician, suspect early stages of anemia DVT prophylaxis: Lovenox 40 mg subcu Endocrine: ICU hyperglycemia protocol Hyperglycemia Suspect poorly controlled diabetes mellitus -A1c pending -Elevated beta hydroxybutyrate Vascular access: Peripheral IVs Code Status: Full code Present on Admission?: Yes (2) Diabetes: Check A1c Present on Admission?: Yes (3) Hyperkalemia: Factitious: Likely secondary to hemolysis with initial lab draw Present on Admission?: Yes (4) Hypomagnesemia: Present on Admission?: Yes (5) Onychomycosis: Present on Admission?: Yes (6) Hypertension 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 Glucose remains elevated I have started the patient on subcutaneous insulin anticipate poor glycemic control. Patient does have transaminitis I suspect fatty tissue liver disease however we will send acute hepatitis panel as he has not had this tested previously. Patient does have [id number] smoking history which he quit in 1998 and he uses inhalers for symptomatic shortness of breath. Elevated lactate minimally out of range, I suspect this will normalize as the patient is in no acute distress at this time I will not recheck. Patient is hypertensive, given the con commitment conduction system issues I am not going to initiate beta-blockers nor calcium channel ramón at this time, while not optimal I suspect this is longstanding hypertensive disease and would treat only in the setting of evidence of end- organ damage or active chest pain. History of Present Illness Attending Physician: Pipo Garcia DO Initial history is obtained from Dr. Hartman interventional cardiology. Per report the patient was feeling extremely ill and felt like he was going to pass out and pass away, his called 911, reportedly EMS monitor showed heart block and he was transcutaneously paced, while in transport the patient became unresponsive and required intubation. The patient was noted to be hypotensive dopamine was started and a heart alert was called for possible acute coronary syndrome and complete heart block. Per verbal report in the [facility] the coronaries did not demonstrate a occlusion indicative of acute coronary syndrome, a temporary transvenous pacemaker was placed in the right femoral groin, the patient became hypertensive and the dopamine infusion was discontinued. There was report that the patient was shaking possibly exhibiting signs of seizure activity, he was transferred to the CT scan to obtain a noncontrast CT of the head prior to transfer to the ICU. Upon his arrival in the ICU the patient was shaking which at first I thought may have represented generalized tonic-clonic activity; however, when the bedside nurse stated "it was reported that he fell" the patient shook his head yes. The patient was able to follow complex 2 step commands. At this point I believe the shaking was actually to attempt to get attention and the patient was extubated shortly thereafter. For me the patient was alert and remembers all events leading up to intubation. He states he had fallen and struck his head against the sink while shaving a couple of days ago and had several presyncopal episodes in the previous days. This morning he felt extremely ill, nauseous, felt that he was going to pass out and I had a overall feeling of impending doom. He told his to call 911 and he remembers riding in the ambulance. Currently he denies chest pain or shortness of breath, fevers chills nausea nor vomiting. He denies family history of venous thromboembolism denies family history of autoimmune disorders: Lupus, rheumatoid arthritis. 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 Past medical history includes diabetes on oral medication, denies cardiac disease denies stroke denies being on blood thinners largely does not know the name of his medications denies any drug allergies Surgical history: Inguinal hernia repair. Allergies Allergy/AdvReac Type Severity Reaction Status Date / Time No Known Allergies Allergy Verified 09/24/19 07:40 Home Medications Home Medications Medication Instructions Recorded Confirmed Type albuterol sulfate [Ventolin HFA] 2 puff INHALATION Q4H PRN 09/24/19 09/24/19 History aspirin 81 mg PO DAILY 09/24/19 09/24/19 History carvedilol 25 mg PO BID 09/24/19 09/24/19 History cholecalciferol (vitamin D3) 5,000 unit PO DAILY 09/24/19 09/24/19 History [Vitamin D3] [id number] 0 ea INHALATION DAILY 09/24/19 09/24/19 History [Trelegy Ellipta] gabapentin 300 mg PO TID 09/24/19 09/24/19 History lorazepam 0.5 mg PO DAILY PRN 09/24/19 09/24/19 History losartan 50 mg PO DAILY 09/24/19 09/24/19 History metformin 500 mg PO QDD 09/24/19 09/24/19 History nitroglycerin 0.4 mg SUBLINGUAL UD PRN 09/24/19 09/24/19 History omeprazole 40 mg PO DAILY 09/24/19 09/24/19 History oxycodone-acetaminophen 1 tab PO QID PRN 09/24/19 09/24/19 History ropinirole 1 mg PO DAILY 09/24/19 09/24/19 History simvastatin 20 mg PO DAILY 09/24/19 09/24/19 History trazodone 150 mg PO HS 09/24/19 09/24/19 History Patient History Medical History Anemia Asthma Atherosclerosis Diabetes Kidney stones Thrombocytopenia Family History Other Family history non-contributory Social History Preferred Language: Armenian marital status: Current Living Situation: Spouse current occupational status: retired Smoking Status: Unknown if ever smoked Review of Systems Review of Systems: All systems reviewed & are unremarkable except as noted in HPI & below Physical Exam Physical Exam: General: Well-nourished male who appears his stated age I have reviewed the recorded vital signs Neurological: RASS score: 1, Moves all 4 extremities, GCS 15, non focal neuro exam Psychological: GCS 15 follows complex commands, oriented, appropriate Eyes: Pupils are equal, round and reactive to light, anicteric sclera. Symmetrical lids. HENT: Oropharynx is clear, moist Mucous Membranes. Neck: Supple. Symmetric. trachea midline. No thyromegaly. Cardiovascular: Normal peripheral perfusion. Distal pulses and capillary refill intact. No JVD. Respiratory: Respirations are non-labored, no accessory muscle use. Breath sounds are equal. Gastrointestinal: Soft. Non-distended. Lymphatic: No cervical lymphadenopathy. Musculoskeletal: No deformity. Mild clubbing of upper extremity digits no cyanosis. Temporary catheter in right groin Skin: Erythematous papules around the face most consistent with tinea infection differential could include psoriasis Nails: Thickened yellow nails of lower extremity consistent with onychomycoses Results & Data Vital Signs (Past 12 Hours) Vital Signs Temp Pulse Pulse Resp BP BP Pulse Ox 09/24/19 09:16 100 H 21 77 L 09/24/19 08:54 74 100 09/24/19 08:18 20 09/24/19 08:10 69 100 09/24/19 07:49 80 16 99 09/24/19 07:43 80 16 78/52 L 96 09/24/19 07:41 80 100 09/24/19 07:40 80 100 09/24/19 07:39 80 100 09/24/19 07:32 80 16 97 09/24/19 07:21 80 18 120/70 96 09/24/19 07:01 36.5 C 80 18 86/37 L 96 Laboratory Results 09/24/19 09/24/19 09/24/19 Range/Units 10:00 10:00 10:00 WBC (4.8-10.8) K/uL RBC (4.7-6.1) M/uL Hgb (14.0-18.0) g/dL POC Hgb (14.0-18.0) g/dl Hct (42-52) % POC Hct (42-52) % MCV (80-100) fL MCH (25-34) pg MCHC (32-36) g/dL RDW Std Deviation (36.4-46.3) fL RDW Coeff of Stephanie (11.5-14.5) % Plt Count (130-400) K/uL MPV (7.4-10.4) fL Immature Gran % (Auto) % Neut % (Auto) % Lymph % (Auto) % Baxter % (Auto) % Eos % (Auto) % Baso % (Auto) % Immature Gran # (Auto) (0.00-0.02) K/uL Neut # (Auto) (1.4-6.5) K/uL Lymph # (Auto) (1.2-3.4) K/uL Baxter # (Auto) (0.11-0.59) K/uL Eos # (Auto) (0-0.5) K/uL Baso # (Auto) (0-0.2) K/uL Platelet Estimate (Normal) PT (9.0-12.0) Seconds INR (0.9-1.1) APTT (21.0-31.0) Seconds PTT Ratio POC Sodium (135-144) mEq/L Sodium Pending (136-145) mmol/L POC Potassium (3.3-5.0) mEq/L Potassium Pending (3.5-5.1) mmol/L POC Chloride (101-112) mEq/L Chloride Pending (98-107) mmol/L Carbon Dioxide Pending (21-32) mmol/L POC Total CO2 (24-31) mEq/l Anion Gap Pending (3-11) POC Anion Gap (16-25) mmol/L POC BUN (7-18) mg/dl BUN Pending (7-18) mg/dl Creatinine Pending (0.6-1.4) mg/dl POC Creatinine (0.6-1.3) mg/dl Est Cr Clr Drug Dosing Pending ml/min Est GFR ( Amer) Pending Est GFR (Non-Af Amer) Pending BUN/Creatinine Ratio Pending (10-20) Glucose Pending (70-99) mg/dl POC Glucose (70-99) POC Glucose (other) (70-99) mg/dl Lactate Pending Calcium Pending (8.5-10.1) mg/dl POC Ioniz Calcium Ky (1.12-1.32) mmol/l Ionized Calcium Phosphorus Pending Magnesium Pending (1.8-2.4) mg/dl Total Bilirubin Pending (0.2-1) mg/dl Direct Bilirubin Pending AST Pending (15-37) U/L ALT Pending (12-78) U/L Alkaline Phosphatase Pending (45-117) U/L Total Creatine Kinase (39-308) U/L CK-MB (CK-2) (0.5-3.6) ng/ml CK/CKMB % Calc (0-3.0) POC Troponin I (0-0.045) ng/ml Troponin I Cancelled Pending (0-0.045) ng/ml Total Protein Pending (6.4-8.2) gm/dl Albumin Pending (3.4-5.0) gm/dl Globulin (2.5-4.0) gm/dl Albumin/Globulin Ratio (0.9-2) Lipase (73-393) U/L Beta-Hydroxybutyric Acd (0.2-2.81) mg/dl TSH (0.300-4.500) uIu/ml Thyroxine (T4) Lyme Disease IgG Ab Lyme Disease IgM Ab Blood Type Antibody Screen 09/24/19 09/24/19 09/24/19 Range/Units 09:59 09:59 09:59 WBC (4.8-10.8) K/uL RBC (4.7-6.1) M/uL Hgb (14.0-18.0) g/dL POC Hgb (14.0-18.0) g/dl Hct (42-52) % POC Hct (42-52) % MCV (80-100) fL MCH (25-34) pg MCHC (32-36) g/dL RDW Std Deviation (36.4-46.3) fL RDW Coeff of Stephanie (11.5-14.5) % Plt Count (130-400) K/uL MPV (7.4-10.4) fL Immature Gran % (Auto) % Neut % (Auto) % Lymph % (Auto) % Baxter % (Auto) % Eos % (Auto) % Baso % (Auto) % Immature Gran # (Auto) (0.00-0.02) K/uL Neut # (Auto) (1.4-6.5) K/uL Lymph # (Auto) (1.2-3.4) K/uL Baxter # (Auto) (0.11-0.59) K/uL Eos # (Auto) (0-0.5) K/uL Baso # (Auto) (0-0.2) K/uL Platelet Estimate (Normal) PT Pending (9.0-12.0) Seconds INR Pending (0.9-1.1) APTT Pending (21.0-31.0) Seconds PTT Ratio Pending POC Sodium (135-144) mEq/L Sodium (136-145) mmol/L POC Potassium (3.3-5.0) mEq/L Potassium (3.5-5.1) mmol/L POC Chloride (101-112) mEq/L Chloride (98-107) mmol/L Carbon Dioxide (21-32) mmol/L POC Total CO2 (24-31) mEq/l Anion Gap (3-11) POC Anion Gap (16-25) mmol/L POC BUN (7-18) mg/dl BUN (7-18) mg/dl Creatinine (0.6-1.4) mg/dl POC Creatinine (0.6-1.3) mg/dl Est Cr Clr Drug Dosing ml/min Est GFR ( Amer) Est GFR (Non-Af Amer) BUN/Creatinine Ratio (10-20) Glucose (70-99) mg/dl POC Glucose (70-99) POC Glucose (other) (70-99) mg/dl Lactate Calcium (8.5-10.1) mg/dl POC Ioniz Calcium Ky (1.12-1.32) mmol/l Ionized Calcium Phosphorus Magnesium (1.8-2.4) mg/dl Total Bilirubin (0.2-1) mg/dl Direct Bilirubin AST (15-37) U/L ALT (12-78) U/L Alkaline Phosphatase (45-117) U/L Total Creatine Kinase (39-308) U/L CK-MB (CK-2) (0.5-3.6) ng/ml CK/CKMB % Calc (0-3.0) POC Troponin I (0-0.045) ng/ml Troponin I (0-0.045) ng/ml Total Protein (6.4-8.2) gm/dl Albumin (3.4-5.0) gm/dl Globulin (2.5-4.0) gm/dl Albumin/Globulin Ratio (0.9-2) Lipase (73-393) U/L Beta-Hydroxybutyric Acd (0.2-2.81) mg/dl TSH (0.300-4.500) uIu/ml Thyroxine (T4) Pending Lyme Disease IgG Ab Pending Lyme Disease IgM Ab Pending Blood Type Antibody Screen 09/24/19 09/24/19 09/24/19 Range/Units 09:59 09:47 07:29 WBC (4.8-10.8) K/uL RBC (4.7-6.1) M/uL Hgb (14.0-18.0) g/dL POC Hgb (14.0-18.0) g/dl Hct (42-52) % POC Hct (42-52) % MCV (80-100) fL MCH (25-34) pg MCHC (32-36) g/dL RDW Std Deviation (36.4-46.3) fL RDW Coeff of Stephanie (11.5-14.5) % Plt Count (130-400) K/uL MPV (7.4-10.4) fL Immature Gran % (Auto) % Neut % (Auto) % Lymph % (Auto) % Baxter % (Auto) % Eos % (Auto) % Baso % (Auto) % Immature Gran # (Auto) (0.00-0.02) K/uL Neut # (Auto) (1.4-6.5) K/uL Lymph # (Auto) (1.2-3.4) K/uL Baxter # (Auto) (0.11-0.59) K/uL Eos # (Auto) (0-0.5) K/uL Baso # (Auto) (0-0.2) K/uL Platelet Estimate (Normal) PT (9.0-12.0) Seconds INR (0.9-1.1) APTT (21.0-31.0) Seconds PTT Ratio POC Sodium (135-144) mEq/L Sodium (136-145) mmol/L POC Potassium (3.3-5.0) mEq/L Potassium (3.5-5.1) mmol/L POC Chloride (101-112) mEq/L Chloride (98-107) mmol/L Carbon Dioxide (21-32) mmol/L POC Total CO2 (24-31) mEq/l Anion Gap (3-11) POC Anion Gap (16-25) mmol/L POC BUN (7-18) mg/dl BUN (7-18) mg/dl Creatinine (0.6-1.4) mg/dl POC Creatinine (0.6-1.3) mg/dl Est Cr Clr Drug Dosing ml/min Est GFR ( Amer) Est GFR (Non-Af Amer) BUN/Creatinine Ratio (10-20) Glucose (70-99) mg/dl POC Glucose 256 H (70-99) POC Glucose (other) (70-99) mg/dl Lactate Calcium (8.5-10.1) mg/dl POC Ioniz Calcium Ky (1.12-1.32) mmol/l Ionized Calcium Pending Phosphorus Magnesium (1.8-2.4) mg/dl Total Bilirubin (0.2-1) mg/dl Direct Bilirubin AST (15-37) U/L ALT (12-78) U/L Alkaline Phosphatase (45-117) U/L Total Creatine Kinase (39-308) U/L CK-MB (CK-2) (0.5-3.6) ng/ml CK/CKMB % Calc (0-3.0) POC Troponin I (0-0.045) ng/ml Troponin I (0-0.045) ng/ml Total Protein (6.4-8.2) gm/dl Albumin (3.4-5.0) gm/dl Globulin (2.5-4.0) gm/dl Albumin/Globulin Ratio (0.9-2) Lipase (73-393) U/L Beta-Hydroxybutyric Acd (0.2-2.81) mg/dl TSH (0.300-4.500) uIu/ml Thyroxine (T4) Lyme Disease IgG Ab Lyme Disease IgM Ab Blood Type A Positive Antibody Screen NEGATIVE 09/24/19 09/24/19 09/24/19 Range/Units 07:18 07:13 07:10 WBC (4.8-10.8) K/uL RBC (4.7-6.1) M/uL Hgb (14.0-18.0) g/dL POC Hgb 16.3 (14.0-18.0) g/dl Hct (42-52) % POC Hct 48 (42-52) % MCV (80-100) fL MCH (25-34) pg MCHC (32-36) g/dL RDW Std Deviation (36.4-46.3) fL RDW Coeff of Stephanie (11.5-14.5) % Plt Count (130-400) K/uL MPV (7.4-10.4) fL Immature Gran % (Auto) % Neut % (Auto) % Lymph % (Auto) % Baxter % (Auto) % Eos % (Auto) % Baso % (Auto) % Immature Gran # (Auto) (0.00-0.02) K/uL Neut # (Auto) (1.4-6.5) K/uL Lymph # (Auto) (1.2-3.4) K/uL Baxter # (Auto) (0.11-0.59) K/uL Eos # (Auto) (0-0.5) K/uL Baso # (Auto) (0-0.2) K/uL Platelet Estimate (Normal) PT (9.0-12.0) Seconds INR (0.9-1.1) APTT (21.0-31.0) Seconds PTT Ratio POC Sodium 140 (135-144) mEq/L Sodium 141 (136-145) mmol/L POC Potassium 5.9 H (3.3-5.0) mEq/L Potassium 6.1 H* (3.5-5.1) mmol/L POC Chloride 104 (101-112) mEq/L Chloride 109 H (98-107) mmol/L Carbon Dioxide 29 (21-32) mmol/L POC Total CO2 26 (24-31) mEq/l Anion Gap 3.0 (3-11) POC Anion Gap 16.0 (16-25) mmol/L POC BUN 16 (7-18) mg/dl BUN 16 (7-18) mg/dl Creatinine 1.20 (0.6-1.4) mg/dl POC Creatinine 1.1 (0.6-1.3) mg/dl Est Cr Clr Drug Dosing 62.6 ml/min Est GFR ( Amer) 70.1 Est GFR (Non-Af Amer) 60.5 BUN/Creatinine Ratio 13.1 (10-20) Glucose 381 H* (70-99) mg/dl POC Glucose (70-99) POC Glucose (other) 362 H* (70-99) mg/dl Lactate Calcium 8.5 (8.5-10.1) mg/dl POC Ioniz Calcium Ky 1.18 (1.12-1.32) mmol/l Ionized Calcium Phosphorus Magnesium 1.4 L (1.8-2.4) mg/dl Total Bilirubin 0.9 (0.2-1) mg/dl Direct Bilirubin AST 63 H (15-37) U/L ALT 77 (12-78) U/L Alkaline Phosphatase 106 (45-117) U/L Total Creatine Kinase 62 (39-308) U/L CK-MB (CK-2) 3.3 (0.5-3.6) ng/ml CK/CKMB % Calc 5.3 H (0-3.0) POC Troponin I < 0.03 (0-0.045) ng/ml Troponin I 0.016 (0-0.045) ng/ml Total Protein 6.0 L (6.4-8.2) gm/dl Albumin 3.4 (3.4-5.0) gm/dl Globulin 2.6 (2.5-4.0) gm/dl Albumin/Globulin Ratio 1.3 (0.9-2) Lipase 108 (73-393) U/L Beta-Hydroxybutyric Acd 6.03 H (0.2-2.81) mg/dl TSH 1.010 (0.300-4.500) uIu/ml Thyroxine (T4) Lyme Disease IgG Ab Lyme Disease IgM Ab Blood Type Antibody Screen 09/24/19 09/24/19 Range/Units 07:10 07:10 WBC 8.51 (4.8-10.8) K/uL RBC 5.30 (4.7-6.1) M/uL Hgb 17.1 (14.0-18.0) g/dL POC Hgb (14.0-18.0) g/dl Hct 48.4 (42-52) % POC Hct (42-52) % MCV 91.3 (80-100) fL MCH 32.3 (25-34) pg MCHC 35.3 (32-36) g/dL RDW Std Deviation 46.8 H (36.4-46.3) fL RDW Coeff of Stephanie 14.3 (11.5-14.5) % Plt Count 95 L (130-400) K/uL MPV 11.0 H (7.4-10.4) fL Immature Gran % (Auto) 0.2 % Neut % (Auto) 77.0 % Lymph % (Auto) 14.5 % Baxter % (Auto) 6.9 % Eos % (Auto) 1.3 % Baso % (Auto) 0.1 % Immature Gran # (Auto) 0.02 (0.00-0.02) K/uL Neut # (Auto) 6.55 H (1.4-6.5) K/uL Lymph # (Auto) 1.23 (1.2-3.4) K/uL Baxter # (Auto) 0.59 (0.11-0.59) K/uL Eos # (Auto) 0.11 (0-0.5) K/uL Baso # (Auto) 0.01 (0-0.2) K/uL Platelet Estimate Decreased L (Normal) PT 13.0 H (9.0-12.0) Seconds INR 1.3 H (0.9-1.1) APTT 25.4 (21.0-31.0) Seconds PTT Ratio 0.9 POC Sodium (135-144) mEq/L Sodium (136-145) mmol/L POC Potassium (3.3-5.0) mEq/L Potassium (3.5-5.1) mmol/L POC Chloride (101-112) mEq/L Chloride (98-107) mmol/L Carbon Dioxide (21-32) mmol/L POC Total CO2 (24-31) mEq/l Anion Gap (3-11) POC Anion Gap (16-25) mmol/L POC BUN (7-18) mg/dl BUN (7-18) mg/dl Creatinine (0.6-1.4) mg/dl POC Creatinine (0.6-1.3) mg/dl Est Cr Clr Drug Dosing ml/min Est GFR ( Amer) Est GFR (Non-Af Amer) BUN/Creatinine Ratio (10-20) Glucose (70-99) mg/dl POC Glucose (70-99) POC Glucose (other) (70-99) mg/dl Lactate Calcium (8.5-10.1) mg/dl POC Ioniz Calcium Ky (1.12-1.32) mmol/l Ionized Calcium Phosphorus Magnesium (1.8-2.4) mg/dl Total Bilirubin (0.2-1) mg/dl Direct Bilirubin AST (15-37) U/L ALT (12-78) U/L Alkaline Phosphatase (45-117) U/L Total Creatine Kinase (39-308) U/L CK-MB (CK-2) (0.5-3.6) ng/ml CK/CKMB % Calc (0-3.0) POC Troponin I (0-0.045) ng/ml Troponin I (0-0.045) ng/ml Total Protein (6.4-8.2) gm/dl Albumin (3.4-5.0) gm/dl Globulin (2.5-4.0) gm/dl Albumin/Globulin Ratio (0.9-2) Lipase (73-393) U/L Beta-Hydroxybutyric Acd (0.2-2.81) mg/dl TSH (0.300-4.500) uIu/ml Thyroxine (T4) Lyme Disease IgG Ab Lyme Disease IgM Ab Blood Type Antibody Screen Coding Level of Care Code Critical Care 1st 30-74 mins Diagnoses Symptomatic bradycardia R00.1 Diabetes E11.65 Diabetes mellitus complication status: with hyperglycemia Diabetes mellitus exterminator termite insulin use: without exterminator termite use Diabetes mellitus type: type 2 Hyperkalemia E87.5 Hypomagnesemia E83.42 Onychomycosis B35.1 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 This is a life/limb threatening event. This includes time spent evaluating patient, direct bedside care, chart review, placing orders, interpretation of diagnostic studies, discussion with consultants, patient, and/or family members regarding treatment decisions, as well as other required patient management activities. This time is exclusive of all separately billable procedures, and teaching time and separate from and in addition to any other critical care service time. (1) Diabetes Diabetes mellitus complication status: with hyperglycemia Diabetes mellitus exterminator termite insulin use: without jail use Diabetes mellitus type: type 2 Qualified Code(s): E11.65 - Type 2 diabetes mellitus with hyperglycemia
[2019-09-24 10:25] LABS: INR 1.2 (0.9-1.1); Partial Thromboplastin Ratio 0.9; Partial Thromboplastin Time 24.7 Seconds (21.0-31.0); Prothrombin Time 12.6 Seconds (9.0-12.0)
[2019-09-24 10:35] LABS: Albumin Level 3.2 gm/dl (3.4-5.0); BUN Creatinine Ratio 15.9 (10-20); Calcium 9.3 mg/dl (8.5-10.1); Creatinine Clr Calc Pharmacy 74.3 ml/min; Est GFR (African American) 86.3; Est GFR (Non-African American) 74.5; Magnesium 2.4 mg/dl (1.8-2.4); Potassium 4.2 mmol/L (3.5-5.1)
[2019-09-24 10:44] LABS: Bilirubin Direct 0.3 mg/dl (0-0.2); Bilirubin,Total 0.9 mg/dl (0.2-1); Total Protein 5.8 gm/dl (6.4-8.2); Troponin I 0.049 ng/ml (0-0.045)
[2019-09-24] MEDS ORDERED: INSULIN GLARGINE SOLOSTAR 100 UNITS/ML 3 ML PEN SC STA (10:46)
[2019-09-24] MEDS ORDERED: CARBOHYDRATES FOR HYPOGLYCEMIA PO PRN (10:46)
[2019-09-24] MEDS ORDERED: GLUCOSE 40% GEL 15 GM TUBE PO PRN (10:46)
[2019-09-24] MEDS ORDERED: GLUCOSE 10 TABS/TUBE PO PRN (10:46)
[2019-09-24] MEDS ORDERED: DC ALL PREVIOUSLY ORDERED DIABETES MEDS ONE (10:46)
[2019-09-24] MEDS ORDERED: GLUCAGON FOR INJ 1 MG VIAL SQ PRN (10:46)
[2019-09-24] MEDS ORDERED: DEXTROSE 50% 50 ML SYRINGE IV PRN (10:46)
[2019-09-24 11:08] LABS: Lyme Ab IgG w/WB Rflx Negative (Negative); Lyme Ab IgM w/WB Rflx Negative (Negative)
[2019-09-24] MEDS: CLOTRIMAZOLE 1% CR 15 GM TUBE EXT SCH ×2 (11:14→20:31)
[2019-09-24 11:22] LABS: Appearance Urine Clear (Clear); Bacteria Urine Automated Negative (Negative); Bilirubin Urine Negative (Negative); Blood Urine Negative (Negative); Cast Urine Automated 0 /lpf (0-5); Color Urine Yellow; Glucose Urine UA 3+ (Negative); Ketones Urine Trace (Negative); Leukocyte Esterase Urine Negative (Negative); Nitrite Urine Negative (Negative); Protein Urine 2+ (Negative); RBC Urine Automated 0-4 /hpf (0-4); Specific Gravity Urine 1.021 (1.000-1.030); Urobilinogen Urine Negative (Negative); pH Urine 6.5 (4.5-7.5)
[2019-09-24] MEDS: INSULIN ASPART 100 UNITS/ML 3 ML PEN SC SCH ×3 (11:57→20:31)
--- NOTE | 2019-09-24 12:11 | History & Physical Report ---
Date of Service September 24, 2019 Assessment & Plan (1) Hypotension: resolved, off of Dopamine all day likely due to bradycardia, unclear etiology check echocardiogram left heart cath with no evidence of ACS, this was not due to STEMI no evidence of infection at this time H/H stable at 15 (2) Symptomatic bradycardia: unclear etiology Lyme screen negative no acute ID has temporary pacer in place at this time cardiology following, will need permanent pacer (3) Chest pain: resolved left heart cath clean today (4) Hyperglycemia: no evidence of DKA as HCO3 normal initially treated with insulin infusion now on Lantus 20 BID, Novolog SS most recent sugars in 100's (5) Hypomagnesemia: replaced (6) Hyperkalemia: likely due to hyperglycemia corrected quickly with insulin and IV fluids repeat in the morning History of Present Illness Chief Complaint: I passed out at home Primary Care Provider: DEREK PCP 69 yo male with history of diabetes, anemia, atherosclerosis who presented to the ED this morning via EMS with pacer pads in place. The patient recalls feeling fine the past few days, no ongoing issues. This morning he woke up around 4-5 am as he always does and he sat down to watch TV. He says he started to feel "weird." He could not pinpoint what was wrong but he just felt "off." Over the next 30 minutes he felt weaker and felt like he was going to pass out. He woke up his for assistance and she called EMS. While waiting for EMS he needed to move his bowels, he had a solid brown stool, no blood but afterwards he felt even weaker and more light headed. He lost consciousness at some point but then remembers EMS at his house and he remember having pacer pads and getting shocked to be paced. He had a very weak pulse, hypotensive and bradycardic in the field. In the ED he remained hypotensive and bradycardic. He became less responsive and his breathing deteriorated and he required emergent intubation. He was taken to the [facility] s[facility] for possible STEMI, difficult to determine what was going on as there were no EKG available in which he was not paced. He was started on Dopamine for the hypotension and bradycardia. Temporary transvenous pacer placed by Dr. Hartman in the recyclable materials sorter. He started to become hypertensive and generated his own rhythm and dopamine was quickly titrated off. He had a left heart catheterization that showed some coronary disease but nothing severe, certainly no evidence of acute thrombosis. He was transferred to the ICU intubated. He was quickly extubated in the ICU after he woke up and was following commands. After extubation he felt fine, denied chest pain, denied dyspnea, denied cough. Lab work showed normal WBC, platelets 95k, K was high at 6, sugars were elevated in the 390's, Cr normal, CO2 normal at 29, lactic acid was 2.1. Lyme screen was negative. CXR showed cardiomegaly but no evidence of heart failure. CT head negative for acute changes. Patient admitted that a few weeks ago he had a syncopal episode that started similar to this one. He fell and struck his head/face. He did not seek medical attention at that time and he had no further episodes until now. He admits to drinking 4-6 beers a night, but he has only done this since he retired. He stresses that he is NOT an alcoholic. Allergies Allergy/AdvReac Type Severity Reaction Status Date / Time No Known Allergies Allergy Verified 09/24/19 07:40 Home Medications Home Medications Medication Instructions Recorded Confirmed Type albuterol sulfate [Ventolin HFA] 2 puff INHALATION Q4H PRN 09/24/19 09/24/19 History aspirin 81 mg PO DAILY 09/24/19 09/24/19 History carvedilol 25 mg PO BID 09/24/19 09/24/19 History cholecalciferol (vitamin D3) 5,000 unit PO DAILY 09/24/19 09/24/19 History [Vitamin D3] [id number] 0 ea INHALATION DAILY 09/24/19 09/24/19 History [Trelegy Ellipta] gabapentin 300 mg PO TID 09/24/19 09/24/19 History lorazepam 0.5 mg PO DAILY PRN 09/24/19 09/24/19 History losartan 50 mg PO DAILY 09/24/19 09/24/19 History metformin 500 mg PO QDD 09/24/19 09/24/19 History nitroglycerin 0.4 mg SUBLINGUAL UD PRN 09/24/19 09/24/19 History omeprazole 40 mg PO DAILY 09/24/19 09/24/19 History oxycodone-acetaminophen 1 tab PO QID PRN 09/24/19 09/24/19 History ropinirole 1 mg PO DAILY 09/24/19 09/24/19 History simvastatin 20 mg PO DAILY 09/24/19 09/24/19 History trazodone 150 mg PO HS 09/24/19 09/24/19 History Past Med/Surg History Medical History Anemia Asthma Atherosclerosis Diabetes Hyperkalemia (Resolved) Kidney stones Thrombocytopenia Family History (Updated 09/24/19 @ 22:11 by Pipo Garcai DO) Other Diabetes Hypertension Social History Preferred Language: Maori Communication Ability: Effective Beliefs That Will Affect Care: None marital status: Current Living Situation: Spouse current occupational status: retired Other Information That Helps Us Care for You: No Feels Safe at Home: Yes Safety Concerns: Feels Safe At This Time Smoking Status: Former smoker Hx Alcohol Use: Yes Alcohol type: beer Hx Substance Use: No Review of Systems Review of Systems: All systems reviewed & are unremarkable except as noted in HPI & below Physical Exam Constitutional: WD/WN, vitals as above Eyes: PERRL, conjunctivae normal, anicteric sclerae ENMT: external ear and nose normal, oropharynx normal Neck: trachea midline, no thyromegaly Respiratory: normal respiratory effort, lungs clear to auscultation Cardiovascular: RRR, no murmur, no edema Gastrointestinal (Abdomen): normal bowel sounds, soft, nontender, no hepatosplenomegaly Musculoskeletal: no cyanosis or clubbing, extremities motor strength 5/5 Skin: no rashes, warm and dry Neurologic: patellar DTR's 2+ bilat, sensation intact and PERRL, EOMI, accommodation nl, no face palsy, no dysarthria Psychiatric: A+Ox3, euthymic affect Lymphatic: no cervical or axillary lymphadenopathy Results & Data Vital Signs (Past 12 Hours) Vital Signs Temp Pulse Pulse Resp BP BP BP 09/24/19 11:58 36.8 C 61 16 130/70 09/24/19 11:35 36.8 C 61 16 138/66 09/24/19 10:58 62 16 127/65 09/24/19 10:28 36.8 C 62 18 122/62 09/24/19 09:58 65 18 112/62 09/24/19 09:43 36.8 C 61 18 135/55 L 09/24/19 09:16 100 H 21 09/24/19 09:13 36.8 C 79 18 187/82 H 187/82 H 09/24/19 09:07 80 22 09/24/19 08:54 74 09/24/19 08:18 20 09/24/19 08:10 69 09/24/19 07:49 80 16 09/24/19 07:43 80 16 78/52 L 09/24/19 07:41 80 09/24/19 07:40 80 09/24/19 07:39 80 09/24/19 07:32 80 16 09/24/19 07:21 80 18 120/70 09/24/19 07:01 36.5 C 80 18 86/37 L Pulse Ox 09/24/19 11:58 99 09/24/19 11:35 99 09/24/19 10:58 99 09/24/19 10:28 98 09/24/19 09:58 99 09/24/19 09:43 99 09/24/19 09:16 77 L 09/24/19 09:13 100 09/24/19 09:07 100 09/24/19 08:54 100 09/24/19 08:18 09/24/19 08:10 100 09/24/19 07:49 99 09/24/19 07:43 96 09/24/19 07:41 100 09/24/19 07:40 100 09/24/19 07:39 100 09/24/19 07:32 97 09/24/19 07:21 96 09/24/19 07:01 96 Laboratory Results Laboratory Results - last 24 hr 09/24/19 09/24/19 09/24/19 07:10 07:10 07:10 WBC 8.51 RBC 5.30 Hgb 17.1 POC Hgb Hct 48.4 POC Hct MCV 91.3 MCH 32.3 MCHC 35.3 RDW Std Deviation 46.8 H RDW Coeff of Stephanie 14.3 Plt Count 95 L MPV 11.0 H Immature Gran % (Auto) 0.2 Neut % (Auto) 77.0 Lymph % (Auto) 14.5 [place] % (Auto) 6.9 Eos % (Auto) 1.3 Baso % (Auto) 0.1 Immature Gran # (Auto) 0.02 Neut # (Auto) 6.55 H Lymph # (Auto) 1.23 [place] # (Auto) 0.59 Eos # (Auto) 0.11 Baso # (Auto) 0.01 Platelet Estimate Decreased L PT 13.0 H INR 1.3 H APTT 25.4 PTT Ratio 0.9 POC Sodium Sodium 141 POC Potassium Potassium 6.1 H* POC Chloride Chloride 109 H Carbon Dioxide 29 POC Total CO2 Anion Gap 3.0 POC Anion Gap POC BUN BUN 16 Creatinine 1.20 POC Creatinine Est Cr Clr Drug Dosing 62.6 Est GFR ( Amer) 70.1 Est GFR (Non-Af Amer) 60.5 BUN/Creatinine Ratio 13.1 Glucose 381 H* POC Glucose POC Glucose (other) Estimat Average Glucose Hemoglobin A1c Lactate Calcium 8.5 POC Ioniz Calcium Ky Ionized Calcium Phosphorus Magnesium 1.4 L Total Bilirubin 0.9 Direct Bilirubin AST 63 H ALT 77 Alkaline Phosphatase 106 Total Creatine Kinase 62 CK-MB (CK-2) 3.3 CK/CKMB % Calc 5.3 H POC Troponin I Troponin I 0.016 Total Protein 6.0 L Albumin 3.4 Globulin 2.6 Albumin/Globulin Ratio 1.3 Lipase 108 Beta-Hydroxybutyric Acd 6.03 H TSH 1.010 Thyroxine (T4) Urine Color Urine Appearance Urine pH Ur Specific Beatty Urine Protein Urine Glucose (UA) Urine Ketones Urine Blood Urine Nitrite Urine Bilirubin Urine Urobilinogen Ur Leukocyte Esterase Urine WBC (Auto) Urine RBC (Auto) U Hyaline Cast (Auto) U Epithel Cells (Auto) Urine Bacteria (Auto) Nasal Screen MRSA (PCR) Lyme Disease IgG Ab Lyme Disease IgM Ab Blood Type Antibody Screen 09/24/19 09/24/19 09/24/19 07:10 07:13 07:18 WBC RBC Hgb POC Hgb 16.3 Hct POC Hct 48 MCV MCH MCHC RDW Std Deviation RDW Coeff of Stephanie Plt Count MPV Immature Gran % (Auto) Neut % (Auto) Lymph % (Auto) [place] % (Auto) Eos % (Auto) Baso % (Auto) Immature Gran # (Auto) Neut # (Auto) Lymph # (Auto) [place] # (Auto) Eos # (Auto) Baso # (Auto) Platelet Estimate PT INR APTT PTT Ratio POC Sodium 140 Sodium POC Potassium 5.9 H Potassium POC Chloride 104 Chloride Carbon Dioxide POC Total CO2 26 Anion Gap POC Anion Gap 16.0 POC BUN 16 BUN Creatinine POC Creatinine 1.1 Est Cr Clr Drug Dosing Est GFR ( Amer) Est GFR (Non-Af Amer) BUN/Creatinine Ratio Glucose POC Glucose POC Glucose (other) 362 H* Estimat Average Glucose Pending Hemoglobin A1c Pending Lactate Calcium POC Ioniz Calcium Ky 1.18 Ionized Calcium Phosphorus Magnesium Total Bilirubin Direct Bilirubin AST ALT Alkaline Phosphatase Total Creatine Kinase CK-MB (CK-2) CK/CKMB % Calc POC Troponin I < 0.03 Troponin I Total Protein Albumin Globulin Albumin/Globulin Ratio Lipase Beta-Hydroxybutyric Acd TSH Thyroxine (T4) Urine Color Urine Appearance Urine pH Ur Specific Beatty Urine Protein Urine Glucose (UA) Urine Ketones Urine Blood Urine Nitrite Urine Bilirubin Urine Urobilinogen Ur Leukocyte Esterase Urine WBC (Auto) Urine RBC (Auto) U Hyaline Cast (Auto) U Epithel Cells (Auto) Urine Bacteria (Auto) Nasal Screen MRSA (PCR) Lyme Disease IgG Ab Lyme Disease IgM Ab Blood Type Antibody Screen 09/24/19 09/24/19 09/24/19 07:29 09:47 09:59 WBC RBC Hgb POC Hgb Hct POC Hct MCV MCH MCHC RDW Std Deviation RDW Coeff of Stephanie Plt Count MPV Immature Gran % (Auto) Neut % (Auto) Lymph % (Auto) [place] % (Auto) Eos % (Auto) Baso % (Auto) Immature Gran # (Auto) Neut # (Auto) Lymph # (Auto) [place] # (Auto) Eos # (Auto) Baso # (Auto) Platelet Estimate PT INR APTT PTT Ratio POC Sodium Sodium POC Potassium Potassium POC Chloride Chloride Carbon Dioxide POC Total CO2 Anion Gap POC Anion Gap POC BUN BUN Creatinine POC Creatinine Est Cr Clr Drug Dosing Est GFR ( Amer) Est GFR (Non-Af Amer) BUN/Creatinine Ratio Glucose POC Glucose 256 H POC Glucose (other) Estimat Average Glucose Hemoglobin A1c Lactate Calcium POC Ioniz Calcium Ky Ionized Calcium 1.27 Phosphorus Magnesium Total Bilirubin Direct Bilirubin AST ALT Alkaline Phosphatase Total Creatine Kinase CK-MB (CK-2) CK/CKMB % Calc POC Troponin I Troponin I Total Protein Albumin Globulin Albumin/Globulin Ratio Lipase Beta-Hydroxybutyric Acd TSH Thyroxine (T4) Urine Color Urine Appearance Urine pH Ur Specific Beatty Urine Protein Urine Glucose (UA) Urine Ketones Urine Blood Urine Nitrite Urine Bilirubin Urine Urobilinogen Ur Leukocyte Esterase Urine WBC (Auto) Urine RBC (Auto) U Hyaline Cast (Auto) U Epithel Cells (Auto) Urine Bacteria (Auto) Nasal Screen MRSA (PCR) Lyme Disease IgG Ab Lyme Disease IgM Ab Blood Type A Positive Antibody Screen NEGATIVE 09/24/19 09/24/19 09/24/19 09:59 09:59 09:59 WBC RBC Hgb POC Hgb Hct POC Hct MCV MCH MCHC RDW Std Deviation RDW Coeff of Stephanie Plt Count MPV Immature Gran % (Auto) Neut % (Auto) Lymph % (Auto) [place] % (Auto) Eos % (Auto) Baso % (Auto) Immature Gran # (Auto) Neut # (Auto) Lymph # (Auto) [place] # (Auto) Eos # (Auto) Baso # (Auto) Platelet Estimate PT 12.6 H INR 1.2 H APTT 24.7 PTT Ratio 0.9 POC Sodium Sodium POC Potassium Potassium POC Chloride Chloride Carbon Dioxide POC Total CO2 Anion Gap POC Anion Gap POC BUN BUN Creatinine POC Creatinine Est Cr Clr Drug Dosing Est GFR ( Amer) Est GFR (Non-Af Amer) BUN/Creatinine Ratio Glucose POC Glucose POC Glucose (other) Estimat Average Glucose Hemoglobin A1c Lactate Calcium POC Ioniz Calcium Ky Ionized Calcium Phosphorus Magnesium Total Bilirubin Direct Bilirubin AST ALT Alkaline Phosphatase Total Creatine Kinase CK-MB (CK-2) CK/CKMB % Calc POC Troponin I Troponin I Total Protein Albumin Globulin Albumin/Globulin Ratio Lipase Beta-Hydroxybutyric Acd TSH Thyroxine (T4) 6.3 Urine Color Urine Appearance Urine pH Ur Specific Beatty Urine Protein Urine Glucose (UA) Urine Ketones Urine Blood Urine Nitrite Urine Bilirubin Urine Urobilinogen Ur Leukocyte Esterase Urine WBC (Auto) Urine RBC (Auto) U Hyaline Cast (Auto) U Epithel Cells (Auto) Urine Bacteria (Auto) Nasal Screen MRSA (PCR) Lyme Disease IgG Ab Negative Lyme Disease IgM Ab Negative Blood Type Antibody Screen 09/24/19 09/24/19 09/24/19 10:00 10:00 10:00 WBC RBC Hgb POC Hgb Hct POC Hct MCV MCH MCHC RDW Std Deviation RDW Coeff of Stephanie Plt Count MPV Immature Gran % (Auto) Neut % (Auto) Lymph % (Auto) [place] % (Auto) Eos % (Auto) Baso % (Auto) Immature Gran # (Auto) Neut # (Auto) Lymph # (Auto) [place] # (Auto) Eos # (Auto) Baso # (Auto) Platelet Estimate PT INR APTT PTT Ratio POC Sodium Sodium 141 POC Potassium Potassium 4.2 D POC Chloride Chloride 111 H Carbon Dioxide 24 POC Total CO2 Anion Gap 6.0 POC Anion Gap POC BUN BUN 16 Creatinine 1.01 POC Creatinine Est Cr Clr Drug Dosing 74.3 Est GFR ( Amer) 86.3 Est GFR (Non-Af Amer) 74.5 BUN/Creatinine Ratio 15.9 Glucose 299 H POC Glucose POC Glucose (other) Estimat Average Glucose Hemoglobin A1c Lactate 2.1 H* Calcium 9.3 POC Ioniz Calcium Ky Ionized Calcium Phosphorus 2.0 L Magnesium 2.4 Total Bilirubin 0.9 Direct Bilirubin 0.3 H AST 64 H ALT 81 H Alkaline Phosphatase 104 Total Creatine Kinase CK-MB (CK-2) CK/CKMB % Calc POC Troponin I Troponin I 0.049 H* Cancelled Total Protein 5.8 L Albumin 3.2 L Globulin Albumin/Globulin Ratio Lipase Beta-Hydroxybutyric Acd TSH Thyroxine (T4) Urine Color Urine Appearance Urine pH Ur Specific Beat[place] Urine Protein Urine Glucose (UA) Urine Ketones Urine Blood Urine Nitrite Urine Bilirubin Urine Urobilinogen Ur Leukocyte Esterase Urine WBC (Auto) Urine RBC (Auto) U Hyaline Cast (Auto) U Epithel Cells (Auto) Urine Bacteria (Auto) Nasal Screen MRSA (PCR) Lyme Disease IgG Ab Lyme Disease IgM Ab Blood Type Antibody Screen 09/24/19 09/24/19 09/24/19 11:00 11:00 11:54 WBC RBC Hgb POC Hgb Hct POC Hct MCV MCH MCHC RDW Std Deviation RDW Coeff of Stephanie Plt Count MPV Immature Gran % (Auto) Neut % (Auto) Lymph % (Auto) [place] % (Auto) Eos % (Auto) Baso % (Auto) Immature Gran # (Auto) Neut # (Auto) Lymph # (Auto) [place] # (Auto) Eos # (Auto) Baso # (Auto) Platelet Estimate PT INR APTT PTT Ratio POC Sodium Sodium POC Potassium Potassium POC Chloride Chloride Carbon Dioxide POC Total CO2 Anion Gap POC Anion Gap POC BUN BUN Creatinine POC Creatinine Est Cr Clr Drug Dosing Est GFR ( Amer) Est GFR (Non-Af Amer) BUN/Creatinine Ratio Glucose POC Glucose 237 H POC Glucose (other) Estimat Average Glucose Hemoglobin A1c Lactate Calcium POC Ioniz Calcium Ky Ionized Calcium Phosphorus Magnesium Total Bilirubin Direct Bilirubin AST ALT Alkaline Phosphatase Total Creatine Kinase CK-MB (CK-2) CK/CKMB % Calc POC Troponin I Troponin I Total Protein Albumin Globulin Albumin/Globulin Ratio Lipase Beta-Hydroxybutyric Acd TSH Thyroxine (T4) Urine Color Yellow Urine Appearance Clear Urine pH 6.5 Ur Specific [place] 1.021 Urine Protein 2+ H Urine Glucose (UA) 3+ H Urine Ketones Trace H Urine Blood Negative Urine Nitrite Negative Urine Bilirubin Negative Urine Urobilinogen Negative Ur Leukocyte Esterase Negative Urine WBC (Auto) 1-5 Urine RBC (Auto) 0-4 U Hyaline Cast (Auto) 0 U Epithel Cells (Auto) 10-20 H Urine Bacteria (Auto) Negative Nasal Screen MRSA (PCR) Pending Lyme Disease IgG Ab Lyme Disease IgM Ab Blood Type Antibody Screen Medications Administered Current Inpatient Medications Aspirin (Ecotrin Ectab) 81 mg PO QAM REPLACED BY [facility] Stop: 10/25/19 08:59 Clotrimazole (Lotrimin 1%) 1 appln EXT BID REPLACED BY [facility] Stop: 10/24/19 10:29 Last Admin: 09/24/19 11:14 Dose: 1 appln Documented by: Dextrose (Dextrose 50%) 25 - 50 ml IV UD PRN; Protocol PRN Reason: Hypoglycemia Protocol Stop: 10/24/19 10:45 Enoxaparin Sodium (Lovenox) 40 mg SQ QAM REPLACED BY [facility] Stop: 10/25/19 08:59 Glucagon (Glucagen) 1 mg SQ UD PRN; Protocol PRN Reason: Hypoglycemia Protocol Stop: 10/24/19 10:45 Glucose (Dex4 Glucose) 4 - 8 tabs PO UD PRN; Protocol PRN Reason: Hypoglycemia Protocol Stop: 10/24/19 10:45 Glucose (Glucose 40%) 15 - 30 gm PO UD PRN; Protocol PRN Reason: Hypoglycemia Protocol Stop: 10/24/19 10:45 Sodium Chloride (Nss 1000ml) 1,000 mls @ 100 mls/hr IV .Q10H REPLACED BY [facility] Stop: 09/24/19 14:14 Last Admin: 09/24/19 10:00 Dose: 100 mls/hr Documented by: Insulin Aspart (Novolog Flexpen) 0 units SC ACHS REPLACED BY [facility] Stop: 10/24/19 11:29 Last Admin: 09/24/19 11:57 Dose: 3 units Documented by: Insulin Glargine (Lantus Solostar Pen) 20 units SC BID [id number] Stop: 10/24/19 20:59 Miscellaneous (Carbohydrates For Hypoglycemia) 15 - 30 gm PO UD PRN PRN Reason: Hypoglycemia Protocol Stop: 10/24/19 10:45 Code Status & VTE Plan VTE Prophylaxis Plan VTE Prophylaxis will be ordered: Yes PG Care Time/CCT Total # of Minutes Spent Total Time Spent with Patient: Total time spent is greater than 50% in coordination of care (as documented) at patient's floor/unit and/or counseling patient: (1) Chest pain Chest pain type: unspecified Qualified Code(s): R07.9 - Chest pain, unspecified (2) Hypotension Hypotension type: unspecified hypotension type Qualified Code(s): I95.9 - Hypotension, unspecified
[2019-09-24] MEDS: OXYCODONE/ACETAMINOPHEN 5mg/325mg TAB PO PRN ×2 (14:33→21:27)
[2019-09-24 18:09] LABS: Hematocrit (blood only) 42.6 % (42-52); Hemoglobin 15.1 g/dL (14.0-18.0)
[2019-09-24] MEDS ORDERED: INSULIN GLARGINE SOLOSTAR 100 UNITS/ML 3 ML PEN SC SCH (21:00)
[2019-09-24] MEDS ORDERED: TRAZODONE HCL 50 MG TAB PO ONE (23:03)
[2019-09-25] MEDS ORDERED: LORazepam 0.5 MG TAB PO STA (00:44)
[2019-09-25 04:46] LABS: Hematocrit (blood only) 44.1 % (42-52); Hemoglobin 15.2 g/dL (14.0-18.0); Mean Corpuscular Hemoglobin 31.3 pg (25-34); Mean Corpuscular Hgb Conc 34.5 g/dL (32-36); Mean Corpuscular Volume 90.9 fL (80-100); RDW Coefficient of Variation 14.2 % (11.5-14.5); RDW Standard Deviation 46.5 fL (36.4-46.3); Red Blood Count 4.85 M/uL (4.7-6.1); White Blood Count 7.26 K/uL (4.8-10.8)
[2019-09-25 04:57] LABS: Mean Platelet Volume 10.3 fL (7.4-10.4); Platelet Count 77 K/uL (130-400)
[2019-09-25 05:09] LABS: Albumin Level 3.2 gm/dl (3.4-5.0); BUN Creatinine Ratio 13.8 (10-20); Bilirubin Direct 0.2 mg/dl (0-0.2); Calcium 8.3 mg/dl (8.5-10.1); Creatinine Clr Calc Pharmacy 78.5 ml/min; Est GFR (African American) 94.2; Est GFR (Non-African American) 81.2; Magnesium 1.5 mg/dl (1.8-2.4)
[2019-09-25 05:10] LABS: Bilirubin,Total 0.8 mg/dl (0.2-1); Phosphorus 2.5 mg/dl (2.5-4.9); Total Protein 5.7 gm/dl (6.4-8.2)
[2019-09-25 05:32] LABS: Basophils # (auto) 0.01 K/uL (0-0.2); Basophils % (auto) 0.1 %; Eosinophils # (auto) 0.05 K/uL (0-0.5); Eosinophils % (auto) 0.7 %; Immature Granulocytes # (auto) 0.02 K/uL (0.00-0.02); Immature Granulocytes % (auto) 0.3 %; Lymphocytes # (auto) 0.68 K/uL (1.2-3.4); Lymphocytes % (auto) 9.4 %; Monocytes # (auto) 0.54 K/uL (0.11-0.59); Monocytes % (auto) 7.4 %; Neutrophils # (auto) 5.96 K/uL (1.4-6.5); Neutrophils % (auto) 82.1 %
[2019-09-25] MEDS: MAGNESIUM SULFATE / D5W 1 GM/100 ML BAG IV SCH ×2 (05:48→06:54)
[2019-09-25] MEDS: OXYCODONE/ACETAMINOPHEN 5mg/325mg TAB PO PRN ×2 (05:49→19:21)
[2019-09-25 06:35] LABS: Estimated Average Glucose 177 mg/dl; Hemoglobin A1C 7.8 % (4.5-5.6)
[2019-09-25] MEDS: CLOTRIMAZOLE 1% CR 15 GM TUBE EXT SCH ×2 (07:31→20:53)
[2019-09-25] MEDS: ASPIRIN 81 MG ECTAB PO SCH (07:32)
[2019-09-25] MEDS: INSULIN ASPART 100 UNITS/ML 3 ML PEN SC SCH ×4 (07:32→20:56)
[2019-09-25] MEDS ORDERED: PHARMACY GLYCEMIC MGMT CONSULT SCH (07:45)
--- NOTE | 2019-09-25 08:27 | Hospitalist Progress Note ---
Date of Service September 25, 2019 Assessment & Plan (1) Hypotension: resolved, off of Dopamine shortly after admission likely due to bradycardia, unclear etiology echo with preserved EF, no valve disease left heart cath with no evidence of ACS, this was not due to STEMI no evidence of infection at this time H/H stable in summary, hypotension likely due to bradycardia, transient cardiogenic shock (2) Symptomatic bradycardia: unclear etiology Lyme screen negative no acute PA treated with temporary venous pacer morning of 09/24 cardiology following, permanent pacemaker inserted by Dr. Mcintyre on 09/25 will transfer to PCU today (3) Chest pain: resolved left heart cath clean on 09/24 (4) Hyperglycemia: no evidence of DKA as HCO3 normal initially treated with insulin infusion now on Lantus 13 BID, Novolog pharmacy following (5) Hypomagnesemia: replaced (6) Hyperkalemia: likely due to hyperglycemia corrected quickly with insulin and IV fluids stable this AM Plan: downgrade to PCU, plan for d/c tomorrow, will ask PT/OT to see Subjective patient did not sleep well last night because he had to lay flat has some chronic back pain and it was difficult because he could not shift positions he is breathing comfortably, no chest pain or pressure, he is hungry because he is NPO for pacemaker today labs reviewed, WBC normal, Hb 15, BMP with normal Cr and electrolytes stable patient went for permanent pacemaker today with Dr Mcintyre, tolerated well in stable condition afterwards, will transfer to PCU likely for discharge tomorrow late morning/afternoon Review of Systems Review of Systems: All systems reviewed & are unremarkable except as noted in HPI & below Respiratory: no cough, no dyspnea and no wheezing Cardiovascular: no chest pain, no palpitations, no syncope and no edema Gastrointestinal: no abdominal pain, no nausea, no vomiting, no constipation and no diarrhea/loose stools Musculoskeletal: + back pain (low back pain, chronic) Physical Exam Constitutional: WD/WN, vitals as above Eyes: PERRL, conjunctivae normal, anicteric sclerae ENMT: external ear and nose normal, oropharynx normal Neck: trachea midline, no thyromegaly Respiratory: normal respiratory effort, lungs clear to auscultation Cardiovascular: RRR, no murmur, no edema Gastrointestinal (Abdomen): normal bowel sounds, soft, nontender, no hepatosplenomegaly Musculoskeletal: no cyanosis or clubbing, extremities motor strength 5/5 Skin: no rashes, warm and dry Neurologic: patellar DTR's 2+ bilat, sensation intact and PERRL, EOMI, accommodation nl, no face palsy, no dysarthria Psychiatric: A+Ox3, euthymic affect Lymphatic: no cervical or axillary lymphadenopathy Results & Data Vital Signs (Past 12 Hours) Vital Signs Temp Pulse Pulse Resp BP BP Pulse Ox 09/25/19 05:15 72 98 09/25/19 05:01 64 99 09/25/19 05:00 64 162/81 H 98 09/25/19 04:45 65 98 09/25/19 04:30 62 98 09/25/19 04:15 67 97 09/25/19 04:01 66 96 09/25/19 04:00 36.9 C 68 68 14 163/85 H 163/85 H 96 09/25/19 03:45 66 94 09/25/19 03:30 64 96 09/25/19 03:15 69 93 09/25/19 03:01 63 95 09/25/19 03:00 65 152/86 H 94 09/25/19 02:45 64 94 09/25/19 02:30 67 99 09/25/19 02:15 64 99 09/25/19 02:01 65 98 09/25/19 02:00 66 142/76 H 98 09/25/19 01:45 59 L 98 09/25/19 01:30 62 98 09/25/19 01:28 60 09/25/19 01:15 37.0 C 60 98 09/25/19 01:01 59 L 98 09/25/19 01:00 60 135/67 98 09/25/19 00:45 66 99 09/25/19 00:30 63 99 09/25/19 00:15 62 99 09/25/19 00:01 63 99 09/25/19 00:00 37.0 C 61 150/74 H 99 09/24/19 23:45 61 99 09/24/19 23:30 62 99 09/24/19 23:15 63 98 09/24/19 23:00 67 156/89 H 99 09/24/19 22:45 60 99 09/24/19 22:30 65 99 09/24/19 22:15 67 99 09/24/19 22:01 66 98 09/24/19 22:00 66 154/80 H 98 09/24/19 21:45 66 99 09/24/19 21:30 67 98 09/24/19 21:15 70 99 09/24/19 21:01 67 99 09/24/19 21:00 69 156/78 H 99 09/24/19 20:56 100 H 09/24/19 20:45 37.0 C 65 99 09/24/19 20:30 66 99 Laboratory Results Laboratory Results - last 24 hr 09/24/19 09/24/19 09/24/19 07:10 07:10 09:47 WBC RBC Hgb Hct MCV MCH MCHC RDW Std Deviation RDW Coeff of Stephanie Plt Count MPV Immature Gran % (Auto) Neut % (Auto) Lymph % (Auto) [place] % (Auto) Eos % (Auto) Baso % (Auto) Immature Gran # (Auto) Neut # (Auto) Lymph # (Auto) [place] # (Auto) Eos # (Auto) Baso # (Auto) PT INR APTT PTT Ratio Sodium Potassium Chloride Carbon Dioxide Anion Gap BUN Creatinine Est Cr Clr Drug Dosing Est GFR ( Amer) Est GFR (Non-Af Amer) BUN/Creatinine Ratio Glucose POC Glucose 256 H Estimat Average Glucose 177 Hemoglobin A1c 7.8 H Lactate Calcium Ionized Calcium Phosphorus Magnesium Total Bilirubin Direct Bilirubin AST ALT Alkaline Phosphatase Troponin I Total Protein Albumin Beta-Hydroxybutyric Acd 6.03 H Thyroxine (T4) Urine Color Urine Appearance Urine pH Ur Specific Golden Urine Protein Urine Glucose (UA) Urine Ketones Urine Blood Urine Nitrite Urine Bilirubin Urine Urobilinogen Ur Leukocyte Esterase Urine WBC (Auto) Urine RBC (Auto) U Hyaline Cast (Auto) U Epithel Cells (Auto) Urine Bacteria (Auto) Nasal Screen MRSA (PCR) Lyme Disease IgG Ab Lyme Disease IgM Ab Hepatitis A IgM Ab Hep Bs Antigen Hep B Core IgM Ab Hepatitis C Antibody 09/24/19 09/24/19 09/24/19 09:59 09:59 09:59 WBC RBC Hgb Hct MCV MCH MCHC RDW Std Deviation RDW Coeff of Stephanie Plt Count MPV Immature Gran % (Auto) Neut % (Auto) Lymph % (Auto) [place] % (Auto) Eos % (Auto) Baso % (Auto) Immature Gran # (Auto) Neut # (Auto) Lymph # (Auto) [place] # (Auto) Eos # (Auto) Baso # (Auto) PT INR APTT PTT Ratio Sodium Potassium Chloride Carbon Dioxide Anion Gap BUN Creatinine Est Cr Clr Drug Dosing Est GFR ( Amer) Est GFR (Non-Af Amer) BUN/Creatinine Ratio Glucose POC Glucose Estimat Average Glucose Hemoglobin A1c Lactate Calcium Ionized Calcium 1.27 Phosphorus Magnesium Total Bilirubin Direct Bilirubin AST ALT Alkaline Phosphatase Troponin I Total Protein Albumin Beta-Hydroxybutyric Acd Thyroxine (T4) 6.3 Urine Color Urine Appearance Urine pH Ur Specific Golden Urine Protein Urine Glucose (UA) Urine Ketones Urine Blood Urine Nitrite Urine Bilirubin Urine Urobilinogen Ur Leukocyte Esterase Urine WBC (Auto) Urine RBC (Auto) U Hyaline Cast (Auto) U Epithel Cells (Auto) Urine Bacteria (Auto) Nasal Screen MRSA (PCR) Lyme Disease IgG Ab Negative Lyme Disease IgM Ab Negative Hepatitis A IgM Ab Hep Bs Antigen Hep B Core IgM Ab Hepatitis C Antibody 09/24/19 09/24/19 09/24/19 09:59 10:00 10:00 WBC RBC Hgb Hct MCV MCH MCHC RDW Std Deviation RDW Coeff of Stephanie Plt Count MPV Immature Gran % (Auto) Neut % (Auto) Lymph % (Auto) [place] % (Auto) Eos % (Auto) Baso % (Auto) Immature Gran # (Auto) Neut # (Auto) Lymph # (Auto) [place] # (Auto) Eos # (Auto) Baso # (Auto) PT 12.6 H INR 1.2 H APTT 24.7 PTT Ratio 0.9 Sodium 141 Potassium 4.2 D Chloride 111 H Carbon Dioxide 24 Anion Gap 6.0 BUN 16 Creatinine 1.01 Est Cr Clr Drug Dosing 74.3 Est GFR ( Amer) 86.3 Est GFR (Non-Af Amer) 74.5 BUN/Creatinine Ratio 15.9 Glucose 299 H POC Glucose Estimat Average Glucose Hemoglobin A1c Lactate 2.1 H* Calcium 9.3 Ionized Calcium Phosphorus 2.0 L Magnesium 2.4 Total Bilirubin 0.9 Direct Bilirubin 0.3 H AST 64 H ALT 81 H Alkaline Phosphatase 104 Troponin I 0.049 H* Total Protein 5.8 L Albumin 3.2 L Beta-Hydroxybutyric Acd Thyroxine (T4) Urine Color Urine Appearance Urine pH Ur Specific Golden Urine Protein Urine Glucose (UA) Urine Ketones Urine Blood Urine Nitrite Urine Bilirubin Urine Urobilinogen Ur Leukocyte Esterase Urine WBC (Auto) Urine RBC (Auto) U Hyaline Cast (Auto) U Epithel Cells (Auto) Urine Bacteria (Auto) Nasal Screen MRSA (PCR) Lyme Disease IgG Ab Lyme Disease IgM Ab Hepatitis A IgM Ab Hep Bs Antigen Hep B Core IgM Ab Hepatitis C Antibody 09/24/19 09/24/19 09/24/19 10:00 11:00 11:00 WBC RBC Hgb Hct MCV MCH MCHC RDW Std Deviation RDW Coeff of Stephanie Plt Count MPV Immature Gran % (Auto) Neut % (Auto) Lymph % (Auto) [place] % (Auto) Eos % (Auto) Baso % (Auto) Immature Gran # (Auto) Neut # (Auto) Lymph # (Auto) [place] # (Auto) Eos # (Auto) Baso # (Auto) PT INR APTT PTT Ratio Sodium Potassium Chloride Carbon Dioxide Anion Gap BUN Creatinine Est Cr Clr Drug Dosing Est GFR ( Amer) Est GFR (Non-Af Amer) BUN/Creatinine Ratio Glucose POC Glucose Estimat Average Glucose Hemoglobin A1c Lactate Calcium Ionized Calcium Phosphorus Magnesium Total Bilirubin Direct Bilirubin AST ALT Alkaline Phosphatase Troponin I Cancelled Total Protein Albumin Beta-Hydroxybutyric Acd Thyroxine (T4) Urine Color Yellow Urine Appearance Clear Urine pH 6.5 Ur Specific Golden 1.021 Urine Protein 2+ H Urine Glucose (UA) 3+ H Urine Ketones Trace H Urine Blood Negative Urine Nitrite Negative Urine Bilirubin Negative Urine Urobilinogen Negative Ur Leukocyte Esterase Negative Urine WBC (Auto) 1-5 Urine RBC (Auto) 0-4 U Hyaline Cast (Auto) 0 U Epithel Cells (Auto) 10-20 H Urine Bacteria (Auto) Negative Nasal Screen MRSA (PCR) Negative Lyme Disease IgG Ab Lyme Disease IgM Ab Hepatitis A IgM Ab Hep Bs Antigen Hep B Core IgM Ab Hepatitis C Antibody 09/24/19 09/24/19 09/24/19 11:54 15:58 16:20 WBC RBC Hgb Hct MCV MCH MCHC RDW Std Deviation RDW Coeff of Stephanie Plt Count MPV Immature Gran % (Auto) Neut % (Auto) Lymph % (Auto) [place] % (Auto) Eos % (Auto) Baso % (Auto) Immature Gran # (Auto) Neut # (Auto) Lymph # (Auto) [place] # (Auto) Eos # (Auto) Baso # (Auto) PT INR APTT PTT Ratio Sodium Potassium Chloride Carbon Dioxide Anion Gap BUN Creatinine Est Cr Clr Drug Dosing Est GFR ( Amer) Est GFR (Non-Af Amer) BUN/Creatinine Ratio Glucose POC Glucose 237 H 146 H Estimat Average Glucose Hemoglobin A1c Lactate Calcium Ionized Calcium Phosphorus Magnesium Total Bilirubin Direct Bilirubin AST ALT Alkaline Phosphatase Troponin I 0.091 H* Total Protein Albumin Beta-Hydroxybutyric Acd Thyroxine (T4) Urine Color Urine Appearance Urine pH Ur Specific Golden Urine Protein Urine Glucose (UA) Urine Ketones Urine Blood Urine Nitrite Urine Bilirubin Urine Urobilinogen Ur Leukocyte Esterase Urine WBC (Auto) Urine RBC (Auto) U Hyaline Cast (Auto) U Epithel Cells (Auto) Urine Bacteria (Auto) Nasal Screen MRSA (PCR) Lyme Disease IgG Ab Lyme Disease IgM Ab Hepatitis A IgM Ab Hep Bs Antigen Hep B Core IgM Ab Hepatitis C Antibody 09/24/19 09/24/19 09/24/19 17:51 17:59 20:27 WBC RBC Hgb 15.1 Hct 42.6 MCV MCH MCHC RDW Std Deviation RDW Coeff of Stephanie Plt Count MPV Immature Gran % (Auto) Neut % (Auto) Lymph % (Auto) [place] % (Auto) Eos % (Auto) Baso % (Auto) Immature Gran # (Auto) Neut # (Auto) Lymph # (Auto) [place] # (Auto) Eos # (Auto) Baso # (Auto) PT INR APTT PTT Ratio Sodium Potassium Chloride Carbon Dioxide Anion Gap BUN Creatinine Est Cr Clr Drug Dosing Est GFR ( Amer) Est GFR (Non-Af Amer) BUN/Creatinine Ratio Glucose POC Glucose 152 H 139 H Estimat Average Glucose Hemoglobin A1c Lactate Calcium Ionized Calcium Phosphorus Magnesium Total Bilirubin Direct Bilirubin AST ALT Alkaline Phosphatase Troponin I Total Protein Albumin Beta-Hydroxybutyric Acd Thyroxine (T4) Urine Color Urine Appearance Urine pH Ur Specific Golden Urine Protein Urine Glucose (UA) Urine Ketones Urine Blood Urine Nitrite Urine Bilirubin Urine Urobilinogen Ur Leukocyte Esterase Urine WBC (Auto) Urine RBC (Auto) U Hyaline Cast (Auto) U Epithel Cells (Auto) Urine Bacteria (Auto) Nasal Screen MRSA (PCR) Lyme Disease IgG Ab Lyme Disease IgM Ab Hepatitis A IgM Ab Hep Bs Antigen Hep B Core IgM Ab Hepatitis C Antibody 09/24/19 09/25/19 09/25/19 22:04 04:24 04:24 WBC 7.26 RBC 4.85 Hgb 15.2 Hct 44.1 MCV 90.9 MCH 31.3 MCHC 34.5 RDW Std Deviation 46.5 H RDW Coeff of Stephanie 14.2 Plt Count 77 L MPV 10.3 Immature Gran % (Auto) 0.3 Neut % (Auto) 82.1 Lymph % (Auto) 9.4 [place] % (Auto) 7.4 Eos % (Auto) 0.7 Baso % (Auto) 0.1 Immature Gran # (Auto) 0.02 Neut # (Auto) 5.96 Lymph # (Auto) 0.68 L [place] # (Auto) 0.54 Eos # (Auto) 0.05 Baso # (Auto) 0.01 PT INR APTT PTT Ratio Sodium 142 Potassium 4.0 Chloride 107 Carbon Dioxide 29 Anion Gap 6.0 BUN 13 Creatinine 0.94 Est Cr Clr Drug Dosing 78.5 Est GFR ( Amer) 94.2 Est GFR (Non-Af Amer) 81.2 BUN/Creatinine Ratio 13.8 Glucose 168 H POC Glucose Estimat Average Glucose Hemoglobin A1c Lactate Calcium 8.3 L Ionized Calcium Phosphorus 2.5 Magnesium 1.5 L Total Bilirubin 0.8 Direct Bilirubin 0.2 AST 34 ALT 67 Alkaline Phosphatase 95 Troponin I 0.065 H* Total Protein 5.7 L Albumin 3.2 L Beta-Hydroxybutyric Acd Thyroxine (T4) Urine Color Urine Appearance Urine pH Ur Specific Golden Urine Protein Urine Glucose (UA) Urine Ketones Urine Blood Urine Nitrite Urine Bilirubin Urine Urobilinogen Ur Leukocyte Esterase Urine WBC (Auto) Urine RBC (Auto) U Hyaline Cast (Auto) U Epithel Cells (Auto) Urine Bacteria (Auto) Nasal Screen MRSA (PCR) Lyme Disease IgG Ab Lyme Disease IgM Ab Hepatitis A IgM Ab Hep Bs Antigen Hep B Core IgM Ab Hepatitis C Antibody 09/25/19 09/25/19 09/25/19 04:24 04:24 07:29 WBC RBC Hgb Hct MCV MCH MCHC RDW Std Deviation RDW Coeff of Setphanie Plt Count MPV Immature Gran % (Auto) Neut % (Auto) Lymph % (Auto) [place] % (Auto) Eos % (Auto) Baso % (Auto) Immature Gran # (Auto) Neut # (Auto) Lymph # (Auto) [place] # (Auto) Eos # (Auto) Baso # (Auto) PT INR APTT PTT Ratio Sodium Potassium Chloride Carbon Dioxide Anion Gap BUN Creatinine Est Cr Clr Drug Dosing Est GFR ( Amer) Est GFR (Non-Af Amer) BUN/Creatinine Ratio Glucose POC Glucose 199 H Estimat Average Glucose Hemoglobin A1c Lactate Calcium Ionized Calcium Phosphorus Magnesium Total Bilirubin Direct Bilirubin AST ALT Alkaline Phosphatase Troponin I Total Protein Albumin Beta-Hydroxybutyric Acd Thyroxine (T4) Urine Color Urine Appearance Urine pH Ur Specific Golden Urine Protein Urine Glucose (UA) Urine Ketones Urine Blood Urine Nitrite Urine Bilirubin Urine Urobilinogen Ur Leukocyte Esterase Urine WBC (Auto) Urine RBC (Auto) U Hyaline Cast (Auto) U Epithel Cells (Auto) Urine Bacteria (Auto) Nasal Screen MRSA (PCR) Lyme Disease IgG Ab Lyme Disease IgM Ab Hepatitis A IgM Ab Pending Hep Bs Antigen Neg Hep B Core IgM Ab Pending Hepatitis C Antibody Pending Medications Administered Current Inpatient Medications Aspirin (Ecotrin Ectab) 81 mg PO QAM [facility] Stop: 10/25/19 08:59 Last Admin: 09/25/19 07:32 Dose: Not Given Documented by: Clotrimazole (Lotrimin 1%) 1 appln EXT BID [facility] Stop: 10/24/19 10:29 Last Admin: 09/25/19 07:31 Dose: 1 appln Documented by: Dextrose (Dextrose 50%) 25 - 50 ml IV UD PRN; Protocol PRN Reason: Hypoglycemia Protocol Stop: 10/24/19 10:45 [facility]oxaparin S[facility] ([facility]) [facility] [place]: 10/25/19 08:59 Glucagon (Glucagen) 1 mg SQ UD PRN; Protocol PRN Reason: Hypoglycemia Protocol Stop: 10/24/19 10:45 Glucose (Dex4 Glucose) 4 - 8 tabs PO UD PRN; Protocol PRN Reason: Hypoglycemia Protocol Stop: 10/24/19 10:45 Glucose (Glucose 40%) 15 - 30 gm PO UD PRN; Protocol PRN Reason: Hypoglycemia Protocol Stop: 10/24/19 10:45 Insulin Aspart (Novolog Flexpen) 0 units SC ACHS [facility] Stop: 10/24/19 11:29 Last Admin: 09/25/19 07:32 Dose: 1 units Documented by: Insulin Glargine (Lantus Solostar Pen) 13 units SC BID [facility]; Protocol Stop: 10/25/19 08:59 Miscellaneous (Carbohydrates For Hypoglycemia) 15 - 30 gm PO UD PRN PRN Reason: Hypoglycemia Protocol Stop: 10/24/19 10:45 Miscellaneous Information (Consult Glycemic Management Pharmacy) 1 ea N/A UD [facility] Stop: 10/25/19 07:44 Oxycodone/Acetaminophen (Percocet 5mg/325mg) 1 tab PO Q6H PRN PRN Reason: Pain Stop: 10/08/19 13:59 Last Admin: 09/25/19 05:49 Dose: 1 tab Documented by: Trazodone HCl (Desyrel) 150 mg PO HS [facility] Stop: 10/25/19 20:59 PG Care Time/CCT Total # of Minutes Spent Total Time Spent with Patient: Total time spent is greater than 50% in coordi nation of care (as documented) at patient's floor/unit and/or counseling patient: (1) Chest pain Chest pain type: unspecified Qualified Code(s): R07.9 - Chest pain, unspecified (2) Hypotension Hypotension type: unspecified hypotension type Qualified Code(s): I95.9 - Hypotension, unspecified
[2019-09-25 08:33] LABS: Hepatitis B Surface Antigen Neg (Neg)
[2019-09-25 09:01] LABS: Hepatitis C IgG 13Yrs+Old_Rflx Neg (Neg)
[2019-09-25] MEDS: INSULIN GLARGINE SOLOSTAR 100 UNITS/ML 3 ML PEN SC SCH ×2 (09:03→20:56)
[2019-09-25] MEDS: ENOXAPARIN INJ 40 MG/0.4 ML SYR SQ SCH (09:10)
--- NOTE | 2019-09-25 09:15 | Critical Care Progress Note ---
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 Fluids/Renal: Replace electrolytes as indicated ID: Skin rash most consistent with tinea corporis -Differential includes pityriasis, psoriasis -Given poor glycemic control we will use a topical fungal medication at this time Onychomycoses of lower extremity nails -Defer treatment to primary care GI/Nutrition: Heart healthy diet as tolerated -Has been n.p.o. overnight Heme: Increased RDW -We will defer to primary care physician, suspect early stages of anemia DVT prophylaxis: Lovenox 40 mg subcu Endocrine: ICU hyperglycemia protocol Hyperglycemia Suspect poorly controlled diabetes mellitus -A1c 7.4 -Elevated beta hydroxybutyrate Glycemic consult placed Vascular access: Peripheral IVs Code Status: Full code (2) Transaminitis: (3) Hypotension: (4) Hyperkalemia: Supervising Physician Co-Signing Physician Notes Dr. Gonzalez was the resident-physician during care of patient. I separately evaluated patient for pimentel portions of the history and the exam. I was present during the critical portion of medical decision making, and I discussed the case with the resident. I generally agree with the findings and plan except for any additions/exceptions noted. Patient has been hemodynamically stable. He has an apparent heart block of unclear origin. He has a transvenous pacemaker currently in his right femoral vein that has not been triggered in the last 24 hours. Cardiology is planning on placing an implantable pacemaker today. He did have transient hyperkalemia on admission and I am unsure the significance of this value. He does have a strong history of syncope and presyncope. I think after the placement of the pacemaker he could be transferred to the floor with telemetry. He does have an elevated blood pressure which can be managed on the floor with an oral medication. Subjective Pleasant 69-year-old gentleman sitting upright in bed in no acute distress. Patient reports doing well since previous surgery for pacemaker placement due to reported complete heart block. Patient is meeting his postoperative milestones, has not had a bowel movement yet, still endorsing pain at the surgical site. Plan is to take him back to the OR today for permanent pacemaker placement. Patient has been n.p.o. overnight in preparation for this. All questions answered no acute concerns. Physical Exam Physical Exam: general: 69-year-old male who appears his stated age HEENT: Normocephalic atraumatic Neck: Normal to visual inspection, trachea midline Cardiac: Regular rate and rhythm I did not appreciate significant murmurs rubs or gallops, normal S1, normal S2, negative JVD Respiratory: Clear to auscultation bilaterally without significant wheezes, rales, rhonchi, symmetrical chest rise, nonlabored breathing GI: Nontender nondistended MSK: Moves all extremities Skin: No focal findings Neuro: Alert and oriented x4 Psych: Calm and cooperative Results & Data Vital Signs (Past 12 Hours) Vital Signs Temp Pulse Pulse Resp BP BP Pulse Ox 09/25/19 05:15 72 98 09/25/19 05:01 64 99 09/25/19 05:00 64 162/81 H 98 09/25/19 04:45 65 98 09/25/19 04:30 62 98 09/25/19 04:15 67 97 09/25/19 04:01 66 96 09/25/19 04:00 36.9 C 68 68 14 163/85 H 163/85 H 96 09/25/19 03:45 66 94 09/25/19 03:30 64 96 09/25/19 03:15 69 93 09/25/19 03:01 63 95 09/25/19 03:00 65 152/86 H 94 09/25/19 02:45 64 94 09/25/19 02:30 67 99 09/25/19 02:15 64 99 09/25/19 02:01 65 98 09/25/19 02:00 66 142/76 H 98 09/25/19 01:45 59 L 98 09/25/19 01:30 62 98 09/25/19 01:28 60 09/25/19 01:15 37.0 C 60 98 09/25/19 01:01 59 L 98 09/25/19 01:00 60 135/67 98 09/25/19 00:45 66 99 12/09/19 00:30 63 99 09/25/19 00:15 62 99 09/25/19 00:01 63 99 09/25/19 00:00 37.0 C 61 150/74 H 99 09/24/19 23:45 61 99 09/24/19 23:30 62 99 09/24/19 23:15 63 98 09/24/19 23:00 67 156/89 H 99 09/24/19 22:45 60 99 09/24/19 22:30 65 99 09/24/19 22:15 67 99 09/24/19 22:01 66 98 09/24/19 22:00 66 154/80 H 98 09/24/19 21:45 66 99 09/24/19 21:30 67 98 Laboratory Results 09/25/19 09/25/19 09/25/19 Range/Units 07:29 04:24 04:24 WBC (4.8-10.8) K/uL RBC (4.7-6.1) M/uL Hgb (14.0-18.0) g/dL Hct (42-52) % MCV (80-100) fL MCH (25-34) pg MCHC (32-36) g/dL RDW Std Deviation (36.4-46.3) fL RDW Coeff of Stephanie (11.5-14.5) % Plt Count (130-400) K/uL MPV (7.4-10.4) fL Immature Gran % (Auto) % Neut % (Auto) % Lymph % (Auto) % [place] % (Auto) % Eos % (Auto) % Baso % (Auto) % Immature Gran # (Auto) (0.00-0.02) K/uL Neut # (Auto) (1.4-6.5) K/uL Lymph # (Auto) (1.2-3.4) K/uL [place] # (Auto) (0.11-0.59) K/uL Eos # (Auto) (0-0.5) K/uL Baso # (Auto) (0-0.2) K/uL PT (9.0-12.0) Seconds INR (0.9-1.1) APTT (21.0-31.0) Seconds PTT Ratio Sodium (136-145) mmol/L Potassium (3.5-5.1) mmol/L Chloride (98-107) mmol/L Carbon Dioxide (21-32) mmol/L Anion Gap (3-11) BUN (7-18) mg/dl Creatinine (0.6-1.4) mg/dl Est Cr Clr Drug Dosing ml/min Est GFR ( Amer) Est GFR (Non-Af Amer) BUN/Creatinine Ratio (10-20) Glucose (70-99) mg/dl POC Glucose 199 H (70-99) Estimat Average Glucose mg/dl Hemoglobin A1c (4.5-5.6) % Lactate (0.4-2.0) mmol/L Calcium (8.5-10.1) mg/dl Ionized Calcium (1.12-1.32) mmol/L Phosphorus (2.5-4.9) mg/dl Magnesium (1.8-2.4) mg/dl Total Bilirubin (0.2-1) mg/dl Direct Bilirubin (0-0.2) mg/dl AST (15-37) U/L ALT (12-78) U/L Alkaline Phosphatase (45-117) U/L Troponin I (0-0.045) ng/ml Total Protein (6.4-8.2) gm/dl Albumin (3.4-5.0) gm/dl Thyroxine (T4) (4.5-10.9) mcg/dl Urine Color Urine Appearance (Clear) Urine pH (4.5-7.5) Ur Specific [place] (1.000-1.030) Urine Protein (Negative) Urine Glucose (UA) (Negative) Urine Ketones (Negative) Urine Blood (Negative) Urine Nitrite (Negative) Urine Bilirubin (Negative) Urine Urobilinogen (Negative) Ur Leukocyte Esterase (Negative) Urine WBC (Auto) (0-5) /hpf Urine RBC (Auto) (0-4) /hpf U Hyaline Cast (Auto) (0-5) /lpf U Epithel Cells (Auto) (0-5) /lpf Urine Bacteria (Auto) (Negative) Nasal Screen MRSA (PCR) (Negative) Lyme Disease IgG Ab (Negative) Lyme Disease IgM Ab (Negative) Hepatitis A IgM Ab Pending Hep Bs Antigen Neg (Neg) Hep B Core IgM Ab Pending Hepatitis C Antibody Neg (Neg) 09/25/19 09/25/19 09/24/19 Range/Units 04:24 04:24 22:04 WBC 7.26 (4.8-10.8) K/uL RBC 4.85 (4.7-6.1) M/uL Hgb 15.2 (14.0-18.0) g/dL Hct 44.1 (42-52) % MCV 90.9 (80-100) fL MCH 31.3 (25-34) pg MCHC 34.5 (32-36) g/dL RDW Std Deviation 46.5 H (36.4-46.3) fL RDW Coeff of Stephanie 14.2 (11.5-14.5) % Plt Count 77 L (130-400) K/uL MPV 10.3 (7.4-10.4) fL Immature Gran % (Auto) 0.3 % Neut % (Auto) 82.1 % Lymph % (Auto) 9.4 % [place] % (Auto) 7.4 % Eos % (Auto) 0.7 % Baso % (Auto) 0.1 % Immature Gran # (Auto) 0.02 (0.00-0.02) K/uL Neut # (Auto) 5.96 (1.4-6.5) K/uL Lymph # (Auto) 0.68 L (1.2-3.4) K/uL [place] # (Auto) 0.54 (0.11-0.59) K/uL Eos # (Auto) 0.05 (0-0.5) K/uL Baso # (Auto) 0.01 (0-0.2) K/uL PT (9.0-12.0) Seconds INR (0.9-1.1) APTT (21.0-31.0) Seconds PTT Ratio Sodium 142 (136-145) mmol/L Potassium 4.0 (3.5-5.1) mmol/L Chloride 107 (98-107) mmol/L Carbon Dioxide 29 (21-32) mmol/L Anion Gap 6.0 (3-11) BUN 13 (7-18) mg/dl Creatinine 0.94 (0.6-1.4) mg/dl Est Cr Clr Drug Dosing 78.5 ml/min Est GFR ( Amer) 94.2 Est GFR (Non-Af Amer) 81.2 BUN/Creatinine Ratio 13.8 (10-20) Glucose 168 H (70-99) mg/dl POC Glucose (70-99) Estimat Average Glucose mg/dl Hemoglobin A1c (4.5-5.6) % Lactate (0.4-2.0) mmol/L Calcium 8.3 L (8.5-10.1) mg/dl Ionized Calcium (1.12-1.32) mmol/L Phosphorus 2.5 (2.5-4.9) mg/dl Magnesium 1.5 L (1.8-2.4) mg/dl Total Bilirubin 0.8 (0.2-1) mg/dl Direct Bilirubin 0.2 (0-0.2) mg/dl AST 34 (15-37) U/L ALT 67 (12-78) U/L Alkaline Phosphatase 95 (45-117) U/L Troponin I 0.065 H* (0-0.045) ng/ml Total Protein 5.7 L (6.4-8.2) gm/dl Albumin 3.2 L (3.4-5.0) gm/dl Thyroxine (T4) (4.5-10.9) mcg/dl Urine Color Urine Appearance (Clear) Urine pH (4.5-7.5) Ur Specific [place] (1.000-1.030) Urine Protein (Negative) Urine Glucose (UA) (Negative) Urine Ketones (Negative) Urine Blood (Negative) Urine Nitrite (Negative) Urine Bilirubin (Negative) Urine Urobilinogen (Negative) Ur Leukocyte Esterase (Negative) Urine WBC (Auto) (0-5) /hpf Urine RBC (Auto) (0-4) /hpf U Hyaline Cast (Auto) (0-5) /lpf U Epithel Cells (Auto) (0-5) /lpf Urine Bacteria (Auto) (Negative) Nasal Screen MRSA (PCR) (Negative) Lyme Disease IgG Ab (Negative) Lyme Disease IgM Ab (Negative) Hepatitis A IgM Ab Hep Bs Antigen (Neg) Hep B Core IgM Ab Hepatitis C Antibody (Neg) 09/24/19 09/24/19 09/24/19 Range/Units 20:27 17:59 17:51 WBC (4.8-10.8) K/uL RBC (4.7-6.1) M/uL Hgb 15.1 (14.0-18.0) g/dL Hct 42.6 (42-52) % MCV (80-100) fL MCH (25-34) pg MCHC (32-36) g/dL RDW Std Deviation (36.4-46.3) fL RDW Coeff of Stephanie (11.5-14.5) % Plt Count (130-400) K/uL MPV (7.4-10.4) fL Immature Gran % (Auto) % Neut % (Auto) % Lymph % (Auto) % [place] % (Auto) % Eos % (Auto) % Baso % (Auto) % Immature Gran # (Auto) (0.00-0.02) K/uL Neut # (Auto) (1.4-6.5) K/uL Lymph # (Auto) (1.2-3.4) K/uL [place] # (Auto) (0.11-0.59) K/uL Eos # (Auto) (0-0.5) K/uL Baso # (Auto) (0-0.2) K/uL PT (9.0-12.0) Seconds INR (0.9-1.1) APTT (21.0-31.0) Seconds PTT Ratio Sodium (136-145) mmol/L Potassium (3.5-5.1) mmol/L Chloride (98-107) mmol/L Carbon Dioxide (21-32) mmol/L Anion Gap (3-11) BUN (7-18) mg/dl Creatinine (0.6-1.4) mg/dl Est Cr Clr Drug Dosing ml/min Est GFR ( Amer) Est GFR (Non-Af Amer) BUN/Creatinine Ratio (10-20) Glucose (70-99) mg/dl POC Glucose 139 H 152 H (70-99) Estimat Average Glucose mg/dl Hemoglobin A1c (4.5-5.6) % Lactate (0.4-2.0) mmol/L Calcium (8.5-10.1) mg/dl Ionized Calcium (1.12-1.32) mmol/L Phosphorus (2.5-4.9) mg/dl Magnesium (1.8-2.4) mg/dl Total Bilirubin (0.2-1) mg/dl Direct Bilirubin (0-0.2) mg/dl AST (15-37) U/L ALT (12-78) U/L Alkaline Phosphatase (45-117) U/L Troponin I (0-0.045) ng/ml Total Protein (6.4-8.2) gm/dl Albumin (3.4-5.0) gm/dl Thyroxine (T4) (4.5-10.9) mcg/dl Urine Color Urine Appearance (Clear) Urine pH (4.5-7.5) Ur Specific [place] (1.000-1.030) Urine Protein (Negative) Urine Glucose (UA) (Negative) Urine Ketones (Negative) Urine Blood (Negative) Urine Nitrite (Negative) Urine Bilirubin (Negative) Urine Urobilinogen (Negative) Ur Leukocyte Esterase (Negative) Urine WBC (Auto) (0-5) /hpf Urine RBC (Auto) (0-4) /hpf U Hyaline Cast (Auto) (0-5) /lpf U Epithel Cells (Auto) (0-5) /lpf Urine Bacteria (Auto) (Negative) Nasal Screen MRSA (PCR) (Negative) Lyme Disease IgG Ab (Negative) Lyme Disease IgM Ab (Negative) Hepatitis A IgM Ab Hep Bs Antigen (Neg) Hep B Core IgM Ab Hepatitis C Antibody (Neg) 09/24/19 09/24/19 09/24/19 Range/Units 16:20 15:58 11:54 WBC (4.8-10.8) K/uL RBC (4.7-6.1) M/uL Hgb (14.0-18.0) g/dL Hct (42-52) % MCV (80-100) fL MCH (25-34) pg MCHC (32-36) g/dL RDW Std Deviation (36.4-46.3) fL RDW Coeff of Stephanie (11.5-14.5) % Plt Count (130-400) K/uL MPV (7.4-10.4) fL Immature Gran % (Auto) % Neut % (Auto) % Lymph % (Auto) % [place] % (Auto) % Eos % (Auto) % Baso % (Auto) % Immature Gran # (Auto) (0.00-0.02) K/uL Neut # (Auto) (1.4-6.5) K/uL Lymph # (Auto) (1.2-3.4) K/uL [place] # (Auto) (0.11-0.59) K/uL Eos # (Auto) (0-0.5) K/uL Baso # (Auto) (0-0.2) K/uL PT (9.0-12.0) Seconds INR (0.9-1.1) APTT (21.0-31.0) Seconds PTT Ratio Sodium (136-145) mmol/L Potassium (3.5-5.1) mmol/L Chloride (98-107) mmol/L Carbon Dioxide (21-32) mmol/L Anion Gap (3-11) BUN (7-18) mg/dl Creatinine (0.6-1.4) mg/dl Est Cr Clr Drug Dosing ml/min Est GFR ( Amer) Est GFR (Non-Af Amer) BUN/Creatinine Ratio (10-20) Glucose (70-99) mg/dl POC Glucose 146 H 237 H (70-99) Estimat Average Glucose mg/dl Hemoglobin A1c (4.5-5.6) % Lactate (0.4-2.0) mmol/L Calcium (8.5-10.1) mg/dl Ionized Calcium (1.12-1.32) mmol/L Phosphorus (2.5-4.9) mg/dl Magnesium (1.8-2.4) mg/dl Total Bilirubin (0.2-1) mg/dl Direct Bilirubin (0-0.2) mg/dl AST (15-37) U/L ALT (12-78) U/L Alkaline Phosphatase (45-117) U/L Troponin I 0.091 H* (0-0.045) ng/ml Total Protein (6.4-8.2) gm/dl Albumin (3.4-5.0) gm/dl Thyroxine (T4) (4.5-10.9) mcg/dl Urine Color Urine Appearance (Clear) Urine pH (4.5-7.5) Ur Specific [place] (1.000-1.030) Urine Protein (Negative) Urine Glucose (UA) (Negative) Urine Ketones (Negative) Urine Blood (Negative) Urine Nitrite (Negative) Urine Bilirubin (Negative) Urine Urobilinogen (Negative) Ur Leukocyte Esterase (Negative) Urine WBC (Auto) (0-5) /hpf Urine RBC (Auto) (0-4) /hpf U Hyaline Cast (Auto) (0-5) /lpf U Epithel Cells (Auto) (0-5) /lpf Urine Bacteria (Auto) (Negative) Nasal Screen MRSA (PCR) (Negative) Lyme Disease IgG Ab (Negative) Lyme Disease IgM Ab (Negative) Hepatitis A IgM Ab Hep Bs Antigen (Neg) Hep B Core IgM Ab Hepatitis C Antibody (Neg) 09/24/19 09/24/19 09/24/19 Range/Units 11:00 11:00 10:00 WBC (4.8-10.8) K/uL RBC (4.7-6.1) M/uL Hgb (14.0-18.0) g/dL Hct (42-52) % MCV (80-100) fL MCH (25-34) pg MCHC (32-36) g/dL RDW Std Deviation (36.4-46.3) fL RDW Coeff of Stephanie (11.5-14.5) % Plt Count (130-400) K/uL MPV (7.4-10.4) fL Immature Gran % (Auto) % Neut % (Auto) % Lymph % (Auto) % [place] % (Auto) % Eos % (Auto) % Baso % (Auto) % Immature Gran # (Auto) (0.00-0.02) K/uL Neut # (Auto) (1.4-6.5) K/uL Lymph # (Auto) (1.2-3.4) K/uL [place] # (Auto) (0.11-0.59) K/uL Eos # (Auto) (0-0.5) K/uL Baso # (Auto) (0-0.2) K/uL PT (9.0-12.0) Seconds INR (0.9-1.1) APTT (21.0-31.0) Seconds PTT Ratio Sodium (136-145) mmol/L Potassium (3.5-5.1) mmol/L Chloride (98-107) mmol/L Carbon Dioxide (21-32) mmol/L Anion Gap (3-11) BUN (7-18) mg/dl Creatinine (0.6-1.4) mg/dl Est Cr Clr Drug Dosing ml/min Est GFR ( Amer) Est GFR (Non-Af Amer) BUN/Creatinine Ratio (10-20) Glucose (70-99) mg/dl POC Glucose (70-99) Estimat Average Glucose mg/dl Hemoglobin A1c (4.5-5.6) % Lactate (0.4-2.0) mmol/L Calcium (8.5-10.1) mg/dl Ionized Calcium (1.12-1.32) mmol/L Phosphorus (2.5-4.9) mg/dl Magnesium (1.8-2.4) mg/dl Total Bilirubin (0.2-1) mg/dl Direct Bilirubin (0-0.2) mg/dl AST (15-37) U/L ALT (12-78) U/L Alkaline Phosphatase (45-117) U/L Troponin I Cancelled (0-0.045) ng/ml Total Protein (6.4-8.2) gm/dl Albumin (3.4-5.0) gm/dl Thyroxine (T4) (4.5-10.9) mcg/dl Urine Color Yellow Urine Appearance Clear (Clear) Urine pH 6.5 (4.5-7.5) Ur Specific [place] 1.021 (1.000-1.030) Urine Protein 2+ H (Negative) Urine Glucose (UA) 3+ H (Negative) Urine Ketones Trace H (Negative) Urine Blood Negative (Negative) Urine Nitrite Negative (Negative) Urine Bilirubin Negative (Negative) Urine Urobilinogen Negative (Negative) Ur Leukocyte Esterase Negative (Negative) Urine WBC (Auto) 1-5 (0-5) /hpf Urine RBC (Auto) 0-4 (0-4) /hpf U Hyaline Cast (Auto) 0 (0-5) /lpf U Epithel Cells (Auto) 10-20 H (0-5) /lpf Urine Bacteria (Auto) Negative (Negative) Nasal Screen MRSA (PCR) Negative (Negative) Lyme Disease IgG Ab (Negative) Lyme Disease IgM Ab (Negative) Hepatitis A IgM Ab Hep Bs Antigen (Neg) Hep B Core IgM Ab Hepatitis C Antibody (Neg) 09/24/19 09/24/19 09/24/19 Range/Units 10:00 10:00 09:59 WBC (4.8-10.8) K/uL RBC (4.7-6.1) M/uL Hgb (14.0-18.0) g/dL Hct (42-52) % MCV (80-100) fL MCH (25-34) pg MCHC (32-36) g/dL RDW Std Deviation (36.4-46.3) fL RDW Coeff of Stephanie (11.5-14.5) % Plt Count (130-400) K/uL MPV (7.4-10.4) fL Immature Gran % (Auto) % Neut % (Auto) % Lymph % (Auto) % [place] % (Auto) % Eos % (Auto) % Baso % (Auto) % Immature Gran # (Auto) (0.00-0.02) K/uL Neut # (Auto) (1.4-6.5) K/uL Lymph # (Auto) (1.2-3.4) K/uL [place] # (Auto) (0.11-0.59) K/uL Eos # (Auto) (0-0.5) K/uL Baso # (Auto) (0-0.2) K/uL PT 12.6 H (9.0-12.0) Seconds INR 1.2 H (0.9-1.1) APTT 24.7 (21.0-31.0) Seconds PTT Ratio 0.9 Sodium 141 (136-145) mmol/L Potassium 4.2 D (3.5-5.1) mmol/L Chloride 111 H (98-107) mmol/L Carbon Dioxide 24 (21-32) mmol/L Anion Gap 6.0 (3-11) BUN 16 (7-18) mg/dl Creatinine 1.01 (0.6-1.4) mg/dl Est Cr Clr Drug Dosing 74.3 ml/min Est GFR ( Amer) 86.3 Est GFR (Non-Af Amer) 74.5 BUN/Creatinine Ratio 15.9 (10-20) Glucose 299 H (70-99) mg/dl POC Glucose (70-99) Estimat Average Glucose mg/dl Hemoglobin A1c (4.5-5.6) % Lactate 2.1 H* (0.4-2.0) mmol/L Calcium 9.3 (8.5-10.1) mg/dl Ionized Calcium (1.12-1.32) mmol/L Phosphorus 2.0 L (2.5-4.9) mg/dl Magnesium 2.4 (1.8-2.4) mg/dl Total Bilirubin 0.9 (0.2-1) mg/dl Direct Bilirubin 0.3 H (0-0.2) mg/dl AST 64 H (15-37) U/L ALT 81 H (12-78) U/L Alkaline Phosphatase 104 (45-117) U/L Troponin I 0.049 H* (0-0.045) ng/ml Total Protein 5.8 L (6.4-8.2) gm/dl Albumin 3.2 L (3.4-5.0) gm/dl Thyroxine (T4) (4.5-10.9) mcg/dl Urine Color Urine Appearance (Clear) Urine pH (4.5-7.5) Ur Specific [place] (1.000-1.030) Urine Protein (Negative) Urine Glucose (UA) (Negative) Urine Ketones (Negative) Urine Blood (Negative) Urine Nitrite (Negative) Urine Bilirubin (Negative) Urine Urobilinogen (Negative) Ur Leukocyte Esterase (Negative) Urine WBC (Auto) (0-5) /hpf Urine RBC (Auto) (0-4) /hpf U Hyaline Cast (Auto) (0-5) /lpf U Epithel Cells (Auto) (0-5) /lpf Urine Bacteria (Auto) (Negative) Nasal Screen MRSA (PCR) (Negative) Lyme Disease IgG Ab (Negative) Lyme Disease IgM Ab (Negative) Hepatitis A IgM Ab Hep Bs Antigen (Neg) Hep B Core IgM Ab Hepatitis C Antibody (Neg) 09/24/19 09/24/19 09/24/19 Range/Units 09:59 09:59 09:59 WBC (4.8-10.8) K/uL RBC (4.7-6.1) M/uL Hgb (14.0-18.0) g/dL Hct (42-52) % MCV (80-100) fL MCH (25-34) pg MCHC (32-36) g/dL RDW Std Deviation (36.4-46.3) fL RDW Coeff of Stephanie (11.5-14.5) % Plt Count (130-400) K/uL MPV (7.4-10.4) fL Immature Gran % (Auto) % Neut % (Auto) % Lymph % (Auto) % [place] % (Auto) % Eos % (Auto) % Baso % (Auto) % Immature Gran # (Auto) (0.00-0.02) K/uL Neut # (Auto) (1.4-6.5) K/uL Lymph # (Auto) (1.2-3.4) K/uL [place] # (Auto) (0.11-0.59) K/uL Eos # (Auto) (0-0.5) K/uL Baso # (Auto) (0-0.2) K/uL PT (9.0-12.0) Seconds INR (0.9-1.1) APTT (21.0-31.0) Seconds PTT Ratio Sodium (136-145) mmol/L Potassium (3.5-5.1) mmol/L Chloride (98-107) mmol/L Carbon Dioxide (21-32) mmol/L Anion Gap (3-11) BUN (7-18) mg/dl Creatinine (0.6-1.4) mg/dl Est Cr Clr Drug Dosing ml/min Est GFR ( Amer) Est GFR (Non-Af Amer) BUN/Creatinine Ratio (10-20) Glucose (70-99) mg/dl POC Glucose (70-99) Estimat Average Glucose mg/dl Hemoglobin A1c (4.5-5.6) % Lactate (0.4-2.0) mmol/L Calcium (8.5-10.1) mg/dl Ionized Calcium 1.27 (1.12-1.32) mmol/L Phosphorus (2.5-4.9) mg/dl Magnesium (1.8-2.4) mg/dl Total Bilirubin (0.2-1) mg/dl Direct Bilirubin (0-0.2) mg/dl AST (15-37) U/L ALT (12-78) U/L Alkaline Phosphatase (45-117) U/L Troponin I (0-0.045) ng/ml Total Protein (6.4-8.2) gm/dl Albumin (3.4-5.0) gm/dl Thyroxine (T4) 6.3 (4.5-10.9) mcg/dl Urine Color Urine Appearance (Clear) Urine pH (4.5-7.5) Ur Specific [place] (1.000-1.030) Urine Protein (Negative) Urine Glucose (UA) (Negative) Urine Ketones (Negative) Urine Blood (Negative) Urine Nitrite (Negative) Urine Bilirubin (Negative) Urine Urobilinogen (Negative) Ur Leukocyte Esterase (Negative) Urine WBC (Auto) (0-5) /hpf Urine RBC (Auto) (0-4) /hpf U Hyaline Cast (Auto) (0-5) /lpf U Epithel Cells (Auto) (0-5) /lpf Urine Bacteria (Auto) (Negative) Nasal Screen MRSA (PCR) (Negative) Lyme Disease IgG Ab Negative (Negative) Lyme Disease IgM Ab Negative (Negative) Hepatitis A IgM Ab Hep Bs Antigen (Neg) Hep B Core IgM Ab Hepatitis C Antibody (Neg) 09/24/19 09/24/19 Range/Units 09:47 07:10 WBC (4.8-10.8) K/uL RBC (4.7-6.1) M/uL Hgb (14.0-18.0) g/dL Hct (42-52) % MCV (80-100) fL MCH (25-34) pg MCHC (32-36) g/dL RDW Std Deviation (36.4-46.3) fL RDW Coeff of Stephanie (11.5-14.5) % Plt Count (130-400) K/uL MPV (7.4-10.4) fL Immature Gran % (Auto) % Neut % (Auto) % Lymph % (Auto) % [place] % (Auto) % Eos % (Auto) % Baso % (Auto) % Immature Gran # (Auto) (0.00-0.02) K/uL Neut # (Auto) (1.4-6.5) K/uL Lymph # (Auto) (1.2-3.4) K/uL [place] # (Auto) (0.11-0.59) K/uL Eos # (Auto) (0-0.5) K/uL Baso # (Auto) (0-0.2) K/uL PT (9.0-12.0) Seconds INR (0.9-1.1) APTT (21.0-31.0) Seconds PTT Ratio Sodium (136-145) mmol/L Potassium (3.5-5.1) mmol/L Chloride (98-107) mmol/L Carbon Dioxide (21-32) mmol/L Anion Gap (3-11) BUN (7-18) mg/dl Creatinine (0.6-1.4) mg/dl Est Cr Clr Drug Dosing ml/min Est GFR ( Amer) Est GFR (Non-Af Amer) BUN/Creatinine Ratio (10-20) Glucose (70-99) mg/dl POC Glucose 256 H (70-99) Estimat Average Glucose 177 mg/dl Hemoglobin A1c 7.8 H (4.5-5.6) % Lactate (0.4-2.0) mmol/L Calcium (8.5-10.1) mg/dl Ionized Calcium (1.12-1.32) mmol/L Phosphorus (2.5-4.9) mg/dl Magnesium (1.8-2.4) mg/dl Total Bilirubin (0.2-1) mg/dl Direct Bilirubin (0-0.2) mg/dl AST (15-37) U/L ALT (12-78) U/L Alkaline Phosphatase (45-117) U/L Troponin I (0-0.045) ng/ml Total Protein (6.4-8.2) gm/dl Albumin (3.4-5.0) gm/dl Thyroxine (T4) (4.5-10.9) mcg/dl Urine Color Urine Appearance (Clear) Urine pH (4.5-7.5) Ur Specific [place] (1.000-1.030) Urine Protein (Negative) Urine Glucose (UA) (Negative) Urine Ketones (Negative) Urine Blood (Negative) Urine Nitrite (Negative) Urine Bilirubin (Negative) Urine Urobilinogen (Negative) Ur Leukocyte Esterase (Negative) Urine WBC (Auto) (0-5) /hpf Urine RBC (Auto) (0-4) /hpf U Hyaline Cast (Auto) (0-5) /lpf U Epithel Cells (Auto) (0-5) /lpf Urine Bacteria (Auto) (Negative) Nasal Screen MRSA (PCR) (Negative) Lyme Disease IgG Ab (Negative) Lyme Disease IgM Ab (Negative) Hepatitis A IgM Ab Hep Bs Antigen (Neg) Hep B Core IgM Ab Hepatitis C Antibody (Neg) Medications Administered 09/25/19 09/25/19 09/25/19 Range/Units 07:29 04:24 04:24 WBC (4.8-10.8) K/uL RBC (4.7-6.1) M/uL Hgb (14.0-18.0) g/dL Hct (42-52) % MCV (80-100) fL MCH (25-34) pg MCHC (32-36) g/dL RDW Std Deviation (36.4-46.3) fL RDW Coeff of Stephanie (11.5-14.5) % Plt Count (130-400) K/uL MPV (7.4-10.4) fL Immature Gran % (Auto) % Neut % (Auto) % Lymph % (Auto) % [place] % (Auto) % Eos % (Auto) % Baso % (Auto) % Immature Gran # (Auto) (0.00-0.02) K/uL Neut # (Auto) (1.4-6.5) K/uL Lymph # (Auto) (1.2-3.4) K/uL [place] # (Auto) (0.11-0.59) K/uL Eos # (Auto) (0-0.5) K/uL Baso # (Auto) (0-0.2) K/uL Sodium (136-145) mmol/L Potassium (3.5-5.1) mmol/L Chloride (98-107) mmol/L Carbon Dioxide (21-32) mmol/L Anion Gap (3-11) BUN (7-18) mg/dl Creatinine (0.6-1.4) mg/dl Est Cr Clr Drug Dosing ml/min Est GFR ( Amer) Est GFR (Non-Af Amer) BUN/Creatinine Ratio (10-20) Glucose (70-99) mg/dl POC Glucose 199 H (70-99) Estimat Average Glucose mg/dl Hemoglobin A1c (4.5-5.6) % Calcium (8.5-10.1) mg/dl Phosphorus (2.5-4.9) mg/dl Magnesium (1.8-2.4) mg/dl Total Bilirubin (0.2-1) mg/dl Direct Bilirubin (0-0.2) mg/dl AST (15-37) U/L ALT (12-78) U/L Alkaline Phosphatase (45-117) U/L Troponin I (0-0.045) ng/ml Total Protein (6.4-8.2) gm/dl Albumin (3.4-5.0) gm/dl Urine Color Urine Appearance (Clear) Urine pH (4.5-7.5) Ur Specific [place] (1.000-1.030) Urine Protein (Negative) Urine Glucose (UA) (Negative) Urine Ketones (Negative) Urine Blood (Negative) Urine Nitrite (Negative) Urine Bilirubin (Negative) Urine Urobilinogen (Negative) Ur Leukocyte Esterase (Negative) Urine WBC (Auto) (0-5) /hpf Urine RBC (Auto) (0-4) /hpf U Hyaline Cast (Auto) (0-5) /lpf U Epithel Cells (Auto) (0-5) /lpf Urine Bacteria (Auto) (Negative) Nasal Screen MRSA (PCR) (Negative) Lyme Disease IgG Ab (Negative) Lyme Disease IgM Ab (Negative) Hepatitis A IgM Ab Pending Hep Bs Antigen Neg (Neg) Hep B Core IgM Ab Pending Hepatitis C Antibody Neg (Neg) 09/25/19 09/25/19 09/24/19 Range/Units 04:24 04:24 22:04 WBC 7.26 (4.8-10.8) K/uL RBC 4.85 (4.7-6.1) M/uL Hgb 15.2 (14.0-18.0) g/dL Hct 44.1 (42-52) % MCV 90.9 (80-100) fL MCH 31.3 (25-34) pg MCHC 34.5 (32-36) g/dL RDW Std Deviation 46.5 H (36.4-46.3) fL RDW Coeff of Stephanie 14.2 (11.5-14.5) % Plt Count 77 L (130-400) K/uL MPV 10.3 (7.4-10.4) fL Immature Gran % (Auto) 0.3 % Neut % (Auto) 82.1 % Lymph % (Auto) 9.4 % [place] % (Auto) 7.4 % Eos % (Auto) 0.7 % Baso % (Auto) 0.1 % Immature Gran # (Auto) 0.02 (0.00-0.02) K/uL Neut # (Auto) 5.96 (1.4-6.5) K/uL Lymph # (Auto) 0.68 L (1.2-3.4) K/uL [place] # (Auto) 0.54 (0.11-0.59) K/uL Eos # (Auto) 0.05 (0-0.5) K/uL Baso # (Auto) 0.01 (0-0.2) K/uL Sodium 142 (136-145) mmol/L Potassium 4.0 (3.5-5.1) mmol/L Chloride 107 (98-107) mmol/L Carbon Dioxide 29 (21-32) mmol/L Anion Gap 6.0 (3-11) BUN 13 (7-18) mg/dl Creatinine 0.94 (0.6-1.4) mg/dl Est Cr Clr Drug Dosing 78.5 ml/min Est GFR ( Amer) 94.2 Est GFR (Non-Af Amer) 81.2 BUN/Creatinine Ratio 13.8 (10-20) Glucose 168 H (70-99) mg/dl POC Glucose (70-99) Estimat Average Glucose mg/dl Hemoglobin A1c (4.5-5.6) % Calcium 8.3 L (8.5-10.1) mg/dl Phosphorus 2.5 (2.5-4.9) mg/dl Magnesium 1.5 L (1.8-2.4) mg/dl Total Bilirubin 0.8 (0.2-1) mg/dl Direct Bilirubin 0.2 (0-0.2) mg/dl AST 34 (15-37) U/L ALT 67 (12-78) U/L Alkaline Phosphatase 95 (45-117) U/L Troponin I 0.065 H* (0-0.045) ng/ml Total Protein 5.7 L (6.4-8.2) gm/dl Albumin 3.2 L (3.4-5.0) gm/dl Urine Color Urine Appearance (Clear) Urine pH (4.5-7.5) Ur Specific [place] (1.000-1.030) Urine Protein (Negative) Urine Glucose (UA) (Negative) Urine Ketones (Negative) Urine Blood (Negative) Urine Nitrite (Negative) Urine Bilirubin (Negative) Urine Urobilinogen (Negative) Ur Leukocyte Esterase (Negative) Urine WBC (Auto) (0-5) /hpf Urine RBC (Auto) (0-4) /hpf U Hyaline Cast (Auto) (0-5) /lpf U Epithel Cells (Auto) (0-5) /lpf Urine Bacteria (Auto) (Negative) Nasal Screen MRSA (PCR) (Negative) Lyme Disease IgG Ab (Negative) Lyme Disease IgM Ab (Negative) Hepatitis A IgM Ab Hep Bs Antigen (Neg) Hep B Core IgM Ab Hepatitis C Antibody (Neg) 09/24/19 09/24/19 09/24/19 Range/Units 20:27 17:59 17:51 WBC (4.8-10.8) K/uL RBC (4.7-6.1) M/uL Hgb 15.1 (14.0-18.0) g/dL Hct 42.6 (42-52) % MCV (80-100) fL MCH (25-34) pg MCHC (32-36) g/dL RDW Std Deviation (36.4-46.3) fL RDW Coeff of Stephanie (11.5-14.5) % Plt Count (130-400) K/uL MPV (7.4-10.4) fL Immature Gran % (Auto) % Neut % (Auto) % Lymph % (Auto) % [place] % (Auto) % Eos % (Auto) % Baso % (Auto) % Immature Gran # (Auto) (0.00-0.02) K/uL Neut # (Auto) (1.4-6.5) K/uL Lymph # (Auto) (1.2-3.4) K/uL [place] # (Auto) (0.11-0.59) K/uL Eos # (Auto) (0-0.5) K/uL Baso # (Auto) (0-0.2) K/uL Sodium (136-145) mmol/L Potassium (3.5-5.1) mmol/L Chloride (98-107) mmol/L Carbon Dioxide (21-32) mmol/L Anion Gap (3-11) BUN (7-18) mg/dl Creatinine (0.6-1.4) mg/dl Est Cr Clr Drug Dosing ml/min Est GFR ( Amer) Est GFR (Non-Af Amer) BUN/Creatinine Ratio (10-20) Glucose (70-99) mg/dl POC Glucose 139 H 152 H (70-99) Estimat Average Glucose mg/dl Hemoglobin A1c (4.5-5.6) % Calcium (8.5-10.1) mg/dl Phosphorus (2.5-4.9) mg/dl Magnesium (1.8-2.4) mg/dl Total Bilirubin (0.2-1) mg/dl Direct Bilirubin (0-0.2) mg/dl AST (15-37) U/L ALT (12-78) U/L Alkaline Phosphatase (45-117) U/L Troponin I (0-0.045) ng/ml Total Protein (6.4-8.2) gm/dl Albumin (3.4-5.0) gm/dl Urine Color Urine Appearance (Clear) Urine pH (4.5-7.5) Ur Specific [place] (1.000-1.030) Urine Protein (Negative) Urine Glucose (UA) (Negative) Urine Ketones (Negative) Urine Blood (Negative) Urine Nitrite (Negative) Urine Bilirubin (Negative) Urine Urobilinogen (Negative) Ur Leukocyte Esterase (Negative) Urine WBC (Auto) (0-5) /hpf Urine RBC (Auto) (0-4) /hpf U Hyaline Cast (Auto) (0-5) /lpf U Epithel Cells (Auto) (0-5) /lpf Urine Bacteria (Auto) (Negative) Nasal Screen MRSA (PCR) (Negative) Lyme Disease IgG Ab (Negative) Lyme Disease IgM Ab (Negative) Hepatitis A IgM Ab Hep Bs Antigen (Neg) Hep B Core IgM Ab Hepatitis C Antibody (Neg) 09/24/19 09/24/19 09/24/19 Range/Units 16:20 15:58 11:54 WBC (4.8-10.8) K/uL RBC (4.7-6.1) M/uL Hgb (14.0-18.0) g/dL Hct (42-52) % MCV (80-100) fL MCH (25-34) pg MCHC (32-36) g/dL RDW Std Deviation (36.4-46.3) fL RDW Coeff of Stephanie (11.5-14.5) % Plt Count (130-400) K/uL MPV (7.4-10.4) fL Immature Gran % (Auto) % Neut % (Auto) % Lymph % (Auto) % [place] % (Auto) % Eos % (Auto) % Baso % (Auto) % Immature Gran # (Auto) (0.00-0.02) K/uL Neut # (Auto) (1.4-6.5) K/uL Lymph # (Auto) (1.2-3.4) K/uL [place] # (Auto) (0.11-0.59) K/uL Eos # (Auto) (0-0.5) K/uL Baso # (Auto) (0-0.2) K/uL Sodium (136-145) mmol/L Potassium (3.5-5.1) mmol/L Chloride (98-107) mmol/L Carbon Dioxide (21-32) mmol/L Anion Gap (3-11) BUN (7-18) mg/dl Creatinine (0.6-1.4) mg/dl Est Cr Clr Drug Dosing ml/min Est GFR ( Amer) Est GFR (Non-Af Amer) BUN/Creatinine Ratio (10-20) Glucose (70-99) mg/dl POC Glucose 146 H 237 H (70-99) Estimat Average Glucose mg/dl Hemoglobin A1c (4.5-5.6) % Calcium (8.5-10.1) mg/dl Phosphorus (2.5-4.9) mg/dl Magnesium (1.8-2.4) mg/dl Total Bilirubin (0.2-1) mg/dl Direct Bilirubin (0-0.2) mg/dl AST (15-37) U/L ALT (12-78) U/L Alkaline Phosphatase (45-117) U/L Troponin I 0.091 H* (0-0.045) ng/ml Total Protein (6.4-8.2) gm/dl Albumin (3.4-5.0) gm/dl Urine Color Urine Appearance (Clear) Urine pH (4.5-7.5) Ur Specific [place] (1.000-1.030) Urine Protein (Negative) Urine Glucose (UA) (Negative) Urine Ketones (Negative) Urine Blood (Negative) Urine Nitrite (Negative) Urine Bilirubin (Negative) Urine Urobilinogen (Negative) Ur Leukocyte Esterase (Negative) Urine WBC (Auto) (0-5) /hpf Urine RBC (Auto) (0-4) /hpf U Hyaline Cast (Auto) (0-5) /lpf U Epithel Cells (Auto) (0-5) /lpf Urine Bacteria (Auto) (Negative) Nasal Screen MRSA (PCR) (Negative) Lyme Disease IgG Ab (Negative) Lyme Disease IgM Ab (Negative) Hepatitis A IgM Ab Hep Bs Antigen (Neg) Hep B Core IgM Ab Hepatitis C Antibody (Neg) 09/24/19 09/24/19 09/24/19 Range/Units 11:00 11:00 09:59 WBC (4.8-10.8) K/uL RBC (4.7-6.1) M/uL Hgb (14.0-18.0) g/dL Hct (42-52) % MCV (80-100) fL MCH (25-34) pg MCHC (32-36) g/dL RDW Std Deviation (36.4-46.3) fL RDW Coeff of Stephanie (11.5-14.5) % Plt Count (130-400) K/uL MPV (7.4-10.4) fL Immature Gran % (Auto) % Neut % (Auto) % Lymph % (Auto) % [place] % (Auto) % Eos % (Auto) % Baso % (Auto) % Immature Gran # (Auto) (0.00-0.02) K/uL Neut # (Auto) (1.4-6.5) K/uL Lymph # (Auto) (1.2-3.4) K/uL [place] # (Auto) (0.11-0.59) K/uL Eos # (Auto) (0-0.5) K/uL Baso # (Auto) (0-0.2) K/uL Sodium (136-145) mmol/L Potassium (3.5-5.1) mmol/L Chloride (98-107) mmol/L Carbon Dioxide (21-32) mmol/L Anion Gap (3-11) BUN (7-18) mg/dl Creatinine (0.6-1.4) mg/dl Est Cr Clr Drug Dosing ml/min Est GFR ( Amer) Est GFR (Non-Af Amer) BUN/Creatinine Ratio (10-20) Glucose (70-99) mg/dl POC Glucose (70-99) Estimat Average Glucose mg/dl Hemoglobin A1c (4.5-5.6) % Calcium (8.5-10.1) mg/dl Phosphorus (2.5-4.9) mg/dl Magnesium (1.8-2.4) mg/dl Total Bilirubin (0.2-1) mg/dl Direct Bilirubin (0-0.2) mg/dl AST (15-37) U/L ALT (12-78) U/L Alkaline Phosphatase (45-117) U/L Troponin I (0-0.045) ng/ml Total Protein (6.4-8.2) gm/dl Albumin (3.4-5.0) gm/dl Urine Color Yellow Urine Appearance Clear (Clear) Urine pH 6.5 (4.5-7.5) Ur Specific [place] 1.021 (1.000-1.030) Urine Protein 2+ H (Negative) Urine Glucose (UA) 3+ H (Negative) Urine Ketones Trace H (Negative) Urine Blood Negative (Negative) Urine Nitrite Negative (Negative) Urine Bilirubin Negative (Negative) Urine Urobilinogen Negative (Negative) Ur Leukocyte Esterase Negative (Negative) Urine WBC (Auto) 1-5 (0-5) /hpf Urine RBC (Auto) 0-4 (0-4) /hpf U Hyaline Cast (Auto) 0 (0-5) /lpf U Epithel Cells (Auto) 10-20 H (0-5) /lpf Urine Bacteria (Auto) Negative (Negative) Nasal Screen MRSA (PCR) Negative (Negative) Lyme Disease IgG Ab Negative (Negative) Lyme Disease IgM Ab Negative (Negative) Hepatitis A IgM Ab Hep Bs Antigen (Neg) Hep B Core IgM Ab Hepatitis C Antibody (Neg) 09/24/19 Range/Units 07:10 WBC (4.8-10.8) K/uL RBC (4.7-6.1) M/uL Hgb (14.0-18.0) g/dL Hct (42-52) % MCV (80-100) fL MCH (25-34) pg MCHC (32-36) g/dL RDW Std Deviation (36.4-46.3) fL RDW Coeff of Stephanie (11.5-14.5) % Plt Count (130-400) K/uL MPV (7.4-10.4) fL Immature Gran % (Auto) % Neut % (Auto) % Lymph % (Auto) % [place] % (Auto) % Eos % (Auto) % Baso % (Auto) % Immature Gran # (Auto) (0.00-0.02) K/uL Neut # (Auto) (1.4-6.5) K/uL Lymph # (Auto) (1.2-3.4) K/uL [place] # (Auto) (0.11-0.59) K/uL Eos # (Auto) (0-0.5) K/uL Baso # (Auto) (0-0.2) K/uL Sodium (136-145) mmol/L Potassium (3.5-5.1) mmol/L Chloride (98-107) mmol/L Carbon Dioxide (21-32) mmol/L Anion Gap (3-11) BUN (7-18) mg/dl Creatinine (0.6-1.4) mg/dl Est Cr Clr Drug Dosing ml/min Est GFR ( Amer) Est GFR (Non-Af Amer) BUN/Creatinine Ratio (10-20) Glucose (70-99) mg/dl POC Glucose (70-99) Estimat Average Glucose 177 mg/dl Hemoglobin A1c 7.8 H (4.5-5.6) % Calcium (8.5-10.1) mg/dl Phosphorus (2.5-4.9) mg/dl Magnesium (1.8-2.4) mg/dl Total Bilirubin (0.2-1) mg/dl Direct Bilirubin (0-0.2) mg/dl AST (15-37) U/L ALT (12-78) U/L Alkaline Phosphatase (45-117) U/L Troponin I (0-0.045) ng/ml Total Protein (6.4-8.2) gm/dl Albumin (3.4-5.0) gm/dl Urine Color Urine Appearance (Clear) Urine pH (4.5-7.5) Ur Specific [place] (1.000-1.030) Urine Protein (Negative) Urine Glucose (UA) (Negative) Urine Ketones (Negative) Urine Blood (Negative) Urine Nitrite (Negative) Urine Bilirubin (Negative) Urine Urobilinogen (Negative) Ur Leukocyte Esterase (Negative) Urine WBC (Auto) (0-5) /hpf Urine RBC (Auto) (0-4) /hpf U Hyaline Cast (Auto) (0-5) /lpf U Epithel Cells (Auto) (0-5) /lpf Urine Bacteria (Auto) (Negative) Nasal Screen MRSA (PCR) (Negative) Lyme Disease IgG Ab (Negative) Lyme Disease IgM Ab (Negative) Hepatitis A IgM Ab Hep Bs Antigen (Neg) Hep B Core IgM Ab Hepatitis C Antibody (Neg) Resident Activity Tracking Resident Involvement: Resident Care Provided Care Provided: Adult Hospital Medicine (1) Hypotension Hypotension type: unspecified hypotension type Qualified Code(s): I95.9 - Hypotension, unspecified
[2019-09-25] MEDS: ACETAMINOPHEN 325 MG TAB PO PRN (09:33)
--- NOTE | 2019-09-25 10:31 | Billing Data ---
Coding Level of Care Code 02560 Subseq Hosp Care Lvl 3
--- NOTE | 2019-09-25 10:47 | XCELERA ---
[id number] [email or web address]\[id number]
--- NOTE | 2019-09-25 11:07 | Cardiology Consultation ---
Date of Consultation September 25, 2019 Assessment & Plan (1) Symptomatic bradycardia: While we do not have any documentation of his bradycardia, he was reported by multiple providers to have evidence of a low heart rate and possibly complete heart block. He did require temporary transvenous pacing. He does have some conduction disease at baseline. Preserved LV systolic function. Surprisingly, he did not test positive for acute Lyme disease. He does take beta-blockade. One could argue that discontinuation of beta-ramón would be a good intervention, however do not think there is any guarantee that this would prevent additional episodes. He has been taking beta-ramón for while on these episodes appear to be very intermittent and acute. I Think a better option is permanent pacing. Additionally, there was some elements of his presentation consistent with high vagal tone. This would include the tiredness in need to have a bowel movement. However, once again I do not think there is a way to mitigate this in the absence of a pacemaker. Was very symptomatic and required both transcutaneous pacing and pressor support. Given the recurrent nature of his syncopal episodes and the implication that this is related to symptomatic bradycardia, does seem reasonable to recommend permanent pacing. We did discuss the risks benefits and alternatives to permanent pacemaker and he is willing to proceed. History of Present Illness Reason for Consultation: Symptomatic bradycardia Requesting Physician: Devan Attending Physician: Pipo Garcia, History of Present Illness Patient is a 69-year-old gentleman without a known history of significant cardia c disease who experience significant weakness and syncope yesterday. Patient recalls feeling somewhat weak early yesterday morning. He had some mild dizziness and difficulty performing certain tasks. Apparently at 1 point he did lose consciousness and EMS was summoned. Patient was felt to be very bradycardic and hypotensive and transcutaneous pacing was initiated. The patient was brought to the emergency room intubated and did require pressor support for period of time. He went emergently to the cardiac catheterization suite where he was noted have normal coronary arteries. A transvenous pacemaker was placed at that point the patient was sent to the intensive care unit. Patient eventually resolved his hypotension and bradycardia. He was able to be extubated. Patient did not recall feeling poorly leading up to this event yesterday morning. Did recall 1 event which occurred approximately 2 weeks ago where he lost consciousness as well. He did have some prodrome leading up to that event described as dizziness, lightheadedness and presyncope. He was not aware of palpitations. In general, he claims to be an active individual who to perform mild to moderate activity without limiting symptoms. He has not report significant dyspnea at times. He has not had exertional chest pain. Allergies Allergy/AdvReac Type Severity Reaction Status Date / Time No Known Allergies Allergy Verified 09/24/19 07:40 Home Medications Home Medications Medication Instructions Recorded Confirmed Type albuterol sulfate [Ventolin HFA] 2 puff INHALATION Q4H PRN 09/24/19 09/24/19 History aspirin 81 mg PO DAILY 09/24/19 09/24/19 History carvedilol 25 mg PO BID 09/24/19 09/24/19 History cholecalciferol (vitamin D3) 5,000 unit PO DAILY 09/24/19 09/24/19 History [Vitamin D3] fipmzdyxpen-[id number] 0 ea INHALATION DAILY 09/24/19 09/24/19 History [Trelegy Ellipta] gabapentin 300 mg PO TID 09/24/19 09/24/19 History lorazepam 0.5 mg PO DAILY PRN 09/24/19 09/24/19 History losartan 50 mg PO DAILY 09/24/19 09/24/19 History metformin 500 mg PO QDD 09/24/19 09/24/19 History nitroglycerin 0.4 mg SUBLINGUAL UD PRN 09/24/19 09/24/19 History omeprazole 40 mg PO DAILY 09/24/19 09/24/19 History oxycodone-acetaminophen 1 tab PO QID PRN 09/24/19 09/24/19 History ropinirole 1 mg PO DAILY 09/24/19 09/24/19 History simvastatin 20 mg PO DAILY 09/24/19 09/24/19 History trazodone 150 mg PO HS 09/24/19 09/24/19 History Patient History Medical History Anemia Asthma Atherosclerosis Diabetes Hyperkalemia (Resolved) Kidney stones Thrombocytopenia Family History Other Diabetes Hypertension Social History Preferred Language: Monegasque Communication Ability: Effective Beliefs That Will Affect Care: None marital status: Current Living Situation: Spouse current occupational status: retired Other Information That Helps Us Care for You: No Feels Safe at Home: Yes Safety Concerns: Feels Safe At This Time Smoking Status: Former smoker Hx Alcohol Use: Yes Alcohol type: beer Hx Substance Use: Yes substance use type: does not use Review of Systems Review of Systems: All systems reviewed & are unremarkable except as noted in HPI & below Per HPI Physical Exam Physical Exam: The patient is alert and oriented. Mood and affect appeared normal. He answered all questions appropriately. HEENT: Pupils are equal and reactive to light and accommodation. Extraocular movements are intact. The sclerae are anicteric. Neuro: Cranial nerves intact Neck: Patient's neck is supple. He has palpable carotid pulses bilaterally without bruits on auscultation. There is no evidence of jugular venous distention. The thyroid is not enlarged. Lungs: Clear to auscultation bilaterally. He has good air movement without use of accessory muscles. No rales wheezes or rhonchi. Cardiac: Heart demonstrates a regular rate and rhythm. Normal S1 and S2. No murmurs on examination. Pulses: The patient has palpable radial pulses bilaterally that are equal in intensity Extremities: There was no evidence of hypoperfusion. There is no cyanosis or clubbing. There is no edema. Right femoral temporary pacemaker. Skin: I did not appreciate any rashes on examination today. Results & Data Vital Signs (Past 12 Hours) Vital Signs Temp Pulse Pulse Resp BP BP Pulse Ox 09/25/19 10:00 63 18 166/81 H 96 09/25/19 09:00 71 18 164/79 H 95 09/25/19 08:00 36.8 C 68 12 149/77 H 95 09/25/19 07:00 69 160/87 H 99 09/25/19 06:00 65 169/76 H 99 09/25/19 05:15 72 98 09/25/19 05:01 64 99 09/25/19 05:00 64 162/81 H 98 09/25/19 04:45 65 98 09/25/19 04:30 62 98 09/25/19 04:15 67 97 09/25/19 04:01 66 96 09/25/19 04:00 36.9 C 68 68 14 163/85 H 163/85 H 96 09/25/19 03:45 66 94 09/25/19 03:30 64 96 09/25/19 03:15 69 93 09/25/19 03:01 63 95 09/25/19 03:00 65 152/86 H 94 09/25/19 02:45 64 94 09/25/19 02:30 67 99 09/25/19 02:15 64 99 09/25/19 02:01 65 98 09/25/19 02:00 66 142/76 H 98 09/25/19 01:45 59 L 98 09/25/19 01:30 62 98 09/25/19 01:28 60 09/25/19 01:15 37.0 C 60 98 09/25/19 01:01 59 L 98 09/25/19 01:00 60 135/67 98 09/25/19 00:45 66 99 09/25/19 00:30 63 99 09/25/19 00:15 62 99 09/25/19 00:01 63 99 09/25/19 00:00 37.0 C 61 150/74 H 99 09/24/19 23:45 61 99 09/24/19 23:30 62 99 09/24/19 23:15 63 98 Laboratory Results Abnormal Lab Results 09/24/19 09/24/19 09/24/19 07:10 15:58 16:20 WBC RBC Hgb Hct MCV MCH MCHC RDW Std Deviation RDW Coeff of Stephanie Plt Count MPV Immature Gran % (Auto) Neut % (Auto) Lymph % (Auto) [place] % (Auto) Eos % (Auto) Baso % (Auto) Immature Gran # (Auto) Neut # (Auto) Lymph # (Auto) [place] # (Auto) Eos # (Auto) Baso # (Auto) Sodium Potassium Chloride Carbon Dioxide Anion Gap BUN Creatinine Est Cr Clr Drug Dosing Est GFR ( Amer) Est GFR (Non-Af Amer) BUN/Creatinine Ratio Glucose POC Glucose 146 H Estimat Average Glucose 177 Hemoglobin A1c 7.8 H Calcium Phosphorus Magnesium Total Bilirubin Direct Bilirubin AST ALT Alkaline Phosphatase Troponin I 0.091 H* Total Protein Albumin Hep Bs Antigen Hepatitis C Antibody 09/24/19 09/24/19 09/24/19 17:51 17:59 20:27 WBC RBC Hgb 15.1 Hct 42.6 MCV MCH MCHC RDW Std Deviation RDW Coeff of Stephanie Plt Count MPV Immature Gran % (Auto) Neut % (Auto) Lymph % (Auto) [place] % (Auto) Eos % (Auto) Baso % (Auto) Immature Gran # (Auto) Neut # (Auto) Lymph # (Auto) [place] # (Auto) Eos # (Auto) Baso # (Auto) Sodium Potassium Chloride Carbon Dioxide Anion Gap BUN Creatinine Est Cr Clr Drug Dosing Est GFR ( Amer) Est GFR (Non-Af Amer) BUN/Creatinine Ratio Glucose POC Glucose 152 H 139 H Estimat Average Glucose Hemoglobin A1c Calcium Phosphorus Magnesium Total Bilirubin Direct Bilirubin AST ALT Alkaline Phosphatase Troponin I Total Protein Albumin Hep Bs Antigen Hepatitis C Antibody 09/24/19 09/25/19 09/25/19 22:04 04:24 04:24 WBC 7.26 RBC 4.85 Hgb 15.2 Hct 44.1 MCV 90.9 MCH 31.3 MCHC 34.5 RDW Std Deviation 46.5 H RDW Coeff of Stephanie 14.2 Plt Count 77 L MPV 10.3 Immature Gran % (Auto) 0.3 Neut % (Auto) 82.1 Lymph % (Auto) 9.4 [place] % (Auto) 7.4 Eos % (Auto) 0.7 Baso % (Auto) 0.1 Immature Gran # (Auto) 0.02 Neut # (Auto) 5.96 Lymph # (Auto) 0.68 L [place] # (Auto) 0.54 Eos # (Auto) 0.05 Baso # (Auto) 0.01 Sodium 142 Potassium 4.0 Chloride 107 Carbon Dioxide 29 Anion Gap 6.0 BUN 13 Creatinine 0.94 Est Cr Clr Drug Dosing 78.5 Est GFR ( Amer) 94.2 Est GFR (Non-Af Amer) 81.2 BUN/Creatinine Ratio 13.8 Glucose 168 H POC Glucose Estimat Average Glucose Hemoglobin A1c Calcium 8.3 L Phosphorus 2.5 Magnesium 1.5 L Total Bilirubin 0.8 Direct Bilirubin 0.2 AST 34 ALT 67 Alkaline Phosphatase 95 Troponin I 0.065 H* Total Protein 5.7 L Albumin 3.2 L Hep Bs Antigen Hepatitis C Antibody 09/25/19 09/25/19 09/25/19 04:24 07:29 11:55 WBC RBC Hgb Hct MCV MCH MCHC RDW Std Deviation RDW Coeff of Stephanie Plt Count MPV Immature Gran % (Auto) Neut % (Auto) Lymph % (Auto) [place] % (Auto) Eos % (Auto) Baso % (Auto) Immature Gran # (Auto) Neut # (Auto) Lymph # (Auto) [place] # (Auto) Eos # (Auto) Baso # (Auto) Sodium Potassium Chloride Carbon Dioxide Anion Gap BUN Creatinine Est Cr Clr Drug Dosing Est GFR ( Amer) Est GFR (Non-Af Amer) BUN/Creatinine Ratio Glucose POC Glucose 199 H 134 H Estimat Average Glucose Hemoglobin A1c Calcium Phosphorus Magnesium Total Bilirubin Direct Bilirubin AST ALT Alkaline Phosphatase Troponin I Total Protein Albumin Hep Bs Antigen Neg Hepatitis C Antibody Neg Diagnostic Findings I reviewed the source images of his EKGs. Normal sinus rhythm with borderline first-degree AV block and nonspecific interventricular conduction delay Echocardiogram obtained yesterday revealed preserved LV systolic function. No significant valvular heart disease. Chest x-ray obtained at the time of admission did reveal any acute cardiopulmonary process. he was intubated at the time. PG Care Time/CCT Total # of Minutes Spent Total Time Spent with Patient: Total time spent is greater than 50% in coordination of care (as documented) at patient's floor/unit and/or counseling patient:
--- NOTE | 2019-09-25 11:07 | Pre Anesthesia Assessment ---
Date of Service September 25, 2019 Pre Sedation Assessment Vital Signs Temp Pulse Pulse Resp BP BP Pulse Ox 09/25/19 10:00 63 18 166/81 H 96 09/25/19 09:00 71 18 164/79 H 95 09/25/19 08:00 36.8 C 68 12 149/77 H 95 09/25/19 07:00 69 160/87 H 99 09/25/19 06:00 65 169/76 H 99 09/25/19 05:15 72 98 09/25/19 05:01 64 99 09/25/19 05:00 64 162/81 H 98 09/25/19 04:45 65 98 09/25/19 04:30 62 98 09/25/19 04:15 67 97 09/25/19 04:01 66 96 09/25/19 04:00 36.9 C 68 68 14 163/85 H 163/85 H 96 09/25/19 03:45 66 94 09/25/19 03:30 64 96 09/25/19 03:15 69 93 09/25/19 03:01 63 95 09/25/19 03:00 65 152/86 H 94 09/25/19 02:45 64 94 09/25/19 02:30 67 99 09/25/19 02:15 64 99 09/25/19 02:01 65 98 09/25/19 02:00 66 142/76 H 98 09/25/19 01:45 59 L 98 09/25/19 01:30 62 98 09/25/19 01:28 60 09/25/19 01:15 37.0 C 60 98 09/25/19 01:01 59 L 98 09/25/19 01:00 60 135/67 98 09/25/19 00:45 66 99 09/25/19 00:30 63 99 09/25/19 00:15 62 99 09/25/19 00:01 63 99 09/25/19 00:00 37.0 C 61 150/74 H 99 09/24/19 23:45 61 99 09/24/19 23:30 62 99 09/24/19 23:15 63 98 09/24/19 23:00 67 156/89 H 99 09/24/19 22:45 60 99 09/24/19 22:30 65 99 09/24/19 22:15 67 99 09/24/19 22:01 66 98 09/24/19 22:00 66 154/80 H 98 09/24/19 21:45 66 99 09/24/19 21:30 67 98 09/24/19 21:15 70 99 09/24/19 21:01 67 99 09/24/19 21:00 69 156/78 H 99 09/24/19 20:56 100 H 09/24/19 20:45 37.0 C 65 99 09/24/19 20:30 66 99 09/24/19 20:15 64 98 09/24/19 20:01 65 100 09/24/19 20:00 37.0 C 66 63 14 154/79 H 154/79 H 100 09/24/19 19:45 66 99 09/24/19 19:30 65 99 09/24/19 19:15 62 99 09/24/19 19:01 66 98 09/24/19 19:00 65 141/83 H 99 09/24/19 18:45 63 99 09/24/19 18:30 71 99 09/24/19 18:15 65 99 09/24/19 18:02 63 153/80 H 99 09/24/19 18:00 37.1 C 65 66 16 153/80 H 99 09/24/19 17:45 69 100 09/24/19 17:30 67 99 09/24/19 17:15 71 99 09/24/19 17:01 71 98 09/24/19 17:00 37 C 70 71 18 142/81 H 142/81 H 99 09/24/19 16:46 67 171/79 H 99 09/24/19 16:45 69 99 09/24/19 16:30 73 99 09/24/19 16:15 65 99 09/24/19 16:01 67 141/74 H 100 09/24/19 16:00 36.9 C 68 67 15 141/74 H 99 09/24/19 15:45 66 100 09/24/19 15:30 69 100 09/24/19 15:15 66 100 09/24/19 15:01 69 100 09/24/19 15:00 70 161/85 H 100 09/24/19 14:58 36.9 C 66 16 161/85 H 100 09/24/19 14:45 65 100 09/24/19 14:30 71 96 09/24/19 14:15 66 100 09/24/19 14:01 65 100 09/24/19 14:00 64 145/77 H 99 09/24/19 13:58 36.9 C 63 16 158/69 H 98 09/24/19 13:45 64 100 09/24/19 13:31 61 100 09/24/19 13:30 62 158/69 H 100 09/24/19 13:15 62 100 09/24/19 13:01 60 94 09/24/19 13:00 65 155/81 H 100 09/24/19 12:58 36.9 C 66 16 155/81 H 98 09/24/19 12:45 62 99 09/24/19 12:31 63 100 09/24/19 12:30 63 144/69 H 100 09/24/19 12:15 61 100 09/24/19 12:07 61 100 09/24/19 12:00 61 130/70 99 09/24/19 11:58 36.8 C 61 16 130/70 99 09/24/19 11:35 36.8 C 61 16 138/66 99 Cardiovascular + regular rate Respiratory + respiratory effort normal Pre-Sedation Airway Assessment Smoking Status: Former smoker Hx Sleep Apnea: No Hx Difficult Intubation: No Short, Thick Neck: No Thyromental Distance: > or= 3.5 Finger Breadths Oral Cavity: + WNL Mallampati Class: III ASA: ASA4 Procedure Planning Contraindications for Sedation: none Current Medications Reviewed: No Notes The planned sedation has been discussed with the patient. Informed Consent was obtained. I have identified the patient, determined the appropriateness of sedation and have assessed the patient immediately prior to the procedure. All medicine(s) and interventions are by my order.
[2019-09-25] MEDS ORDERED: LIDOCAINE HCL 1% 20 ML VIAL ONE (12:07)
[2019-09-25] MEDS ORDERED: BACITRACIN INJ 50,000 UNIT VIAL ONE (12:07)
[2019-09-25] MEDS ORDERED: BUPIVACAINE 0.25% 30 ML VIAL ONE (12:07)
--- NOTE | 2019-09-25 12:24 | Pharmacy Report ---
Pharmacy Glycemic Short Note 2 - Date of Service September 25, 2019 - Glycemic Short BSG Results (Last 24 hours): 09/24/19 09/24/19 09/24/19 16:20 17:51 20:27 Glucose POC Glucose 146 H 152 H 139 H 09/25/19 09/25/19 09/25/19 04:24 07:29 11:55 Glucose 168 H POC Glucose 199 H 134 H OUTPATIENT ANTIDIABETIC REGIMEN: * Metformin 500mg PO daily * A1c = 7.8% 09/24/19 ASSESSMENT: * Type 2 diabetic admitted for hypotension, bradycardia * Fasting BSG this AM 199 with 20 units Lantus on board. Pt is NPO for procedure today, will continue to administer basal insulin however in reduced dose. Ongoing dose will be based upon weight and "moderate" stress level * Rapid acting insulin doses will also be adjusted based upon weight and "moderate" stress level PLAN FOR INPATIENT GLYCEMIC CONTROL: * Hold outpatient oral diabetes medications (metformin) * Basal insulin * Lantus 13 units SQ BID * Bolus insulin * NovoLog per scale Q 4 hrs initially * Goal Range: Low 110 mg/dL - High 140 mg/dL * Correction Factor: 30 mg/dL/unit * Nutritional / Prandial insulin per carb ratio of 1 unit per 10 grams CHO consumed PLAN FOR DISCHARGE: * to be determined
[2019-09-25] MEDS ORDERED: CEFAZOLIN 250 MG/ML 1 GM VIAL ONE (12:39)
[2019-09-25] MEDS ORDERED: MIDAZOLAM HCL 5 MG/ML 1 ML VIAL ONE (12:39)
[2019-09-25] MEDS ORDERED: fentaNYL citrate 100 MCG/2 ML VIAL ONE (12:39)
--- NOTE | 2019-09-25 13:40 | Procedure Note ---
Procedure Note Date of Service September 25, 2019 Note Procedure performed: Implantation of dual-chamber permanent pacemaker Staff nuclear spectroscopist: Shaquille Mcintyre MD Indication: The patient is a 69-year-old gentleman who presented to our facility and cardiogenic shock due to symptomatic bradycardia. He is noted to have complete heart block which later resolved spontaneously. Based on his presentation is felt be good candidate for a permanent pacemaker due to symptomatic nonreversible AV node dysfunction. A dual-chamber device was selected as patient is currently in sinus rhythm and wished to maintain AV synchrony. Procedure in detail: The patient was informed of the risks benefits and alternatives to the intended procedure and she wished to proceed. He was taken to the electrophysiology suite in a fasting state. A preoperative antibiotic had been administered. The patient was monitored electrocardiographically throughout today's procedure and conscious sedation was administered per protocol. The left upper pectoral area is prepped and draped in usual sterile fashion. This area was anesthetized using subcutaneous administration of a xylocaine solution. An incision was made at this site and carried down to the prepectoralis fascia using sharp dissection. Electrocautery was also employed for dissection as well as for hemostasis. A device pocket was fashioned tissues above the pectoralis muscle. Subsequent to this maneuver the left axillary vein was accessed using modified Seldinger technique. Sheaths were placed over guidewires at this site and used to facilitate passage of the pacing leads to the respective chambers under fluoroscopic guidance. This included right atrial and right ventricular leads. Adequate sensing and threshold parameters were obtained prior to Active fixation of the leads to the endocardial surface. The proximal portion leads were then sutured the prepectoral fascia using nonabsorbable suture. The device pocket was irrigated with antibiotic solution. The leads were then attached to the device. The device and leads were then placed in the pocket and pocket was closed in 3 layers of absorbable suture. Steri-Strips and sterile dressing were applied. The device was tested noninvasively prior to conclusion the procedure. The patient tolerated procedure well there no immediate complications. Equipment used: New pulse generator: Golf Course Patroller [employer]. Model number: [id number] serial number [id number] Right atrial lead: Golf Course Patroller Med[employer]onic. Model number: 5076 serial number [id number] Right ventricular lead: Golf Course Patroller Medtronic. Model number: 5076 serial number [id number] Measured data: Right atrial lead: P waves measure 1.4 mV. Pacing threshold 1 V 0.4 ms with a pacing impedance of 551 ohms Right ventricular lead: R waves measured 4.3 mV. Pacing threshold 0.5 V 0.4 ms with a pacing impedance of 513 ohms Impression: Successful implantation of dual-chamber permanent pacemaker Coding
--- NOTE | 2019-09-25 17:55 | Post Anesthesia Assessment ---
Date of Service September 25, 2019 Post Sedation Assessment Vital Signs Temp Pulse Pulse Resp BP BP Pulse Ox 09/25/19 17:30 69 12 159/78 H 95 09/25/19 17:00 74 17 155/87 H 97 09/25/19 16:31 77 24 94 09/25/19 16:19 36.9 C 72 21 163/74 H 94 09/25/19 15:31 76 18 163/94 H 96 09/25/19 15:00 65 13 160/91 H 96 09/25/19 14:45 68 13 185/91 H 96 09/25/19 14:30 65 16 152/90 H 95 09/25/19 14:15 24 158/82 H 96 09/25/19 14:02 66 16 164/89 H 95 09/25/19 13:50 65 16 181/95 H 96 09/25/19 12:00 37.0 C 66 17 166/78 H 95 09/25/19 11:00 64 24 157/95 H 96 09/25/19 10:00 63 18 166/81 H 96 09/25/19 09:00 71 18 164/79 H 95 09/25/19 08:00 36.8 C 68 12 149/77 H 95 09/25/19 07:00 69 160/87 H 99 09/25/19 06:00 65 169/76 H 99 09/25/19 05:15 72 98 09/25/19 05:01 64 99 09/25/19 05:00 64 162/81 H 98 09/25/19 04:45 65 98 09/25/19 04:30 62 98 09/25/19 04:15 67 97 09/25/19 04:01 66 96 09/25/19 04:00 36.9 C 68 68 14 163/85 H 163/85 H 96 09/25/19 03:45 66 94 09/25/19 03:30 64 96 09/25/19 03:15 69 93 09/25/19 03:01 63 95 09/25/19 03:00 65 152/86 H 94 09/25/19 02:45 64 94 09/25/19 02:30 67 99 09/25/19 02:15 64 99 09/25/19 02:01 65 98 09/25/19 02:00 66 142/76 H 98 09/25/19 01:45 59 L 98 09/25/19 01:30 62 98 09/25/19 01:28 60 09/25/19 01:15 37.0 C 60 98 09/25/19 01:01 59 L 98 09/25/19 01:00 60 135/67 98 09/25/19 00:45 66 99 09/25/19 00:30 63 99 09/25/19 00:15 62 99 09/25/19 00:01 63 99 09/25/19 00:00 37.0 C 61 150/74 H 99 09/24/19 23:45 61 99 09/24/19 23:30 62 99 09/24/19 23:15 63 98 09/24/19 23:00 67 156/89 H 99 09/24/19 22:45 60 99 09/24/19 22:30 65 99 09/24/19 22:15 67 99 09/24/19 22:01 66 98 09/24/19 22:00 66 154/80 H 98 09/24/19 21:45 66 99 09/24/19 21:30 67 98 09/24/19 21:15 70 99 09/24/19 21:01 67 99 09/24/19 21:00 69 156/78 H 99 09/24/19 20:56 100 H 09/24/19 20:45 37.0 C 65 99 09/24/19 20:30 66 99 09/24/19 20:15 64 98 09/24/19 20:01 65 100 09/24/19 20:00 37.0 C 66 63 14 154/79 H 154/79 H 100 09/24/19 19:45 66 99 09/24/19 19:30 65 99 09/24/19 19:15 62 99 09/24/19 19:01 66 98 09/24/19 19:00 65 141/83 H 99 09/24/19 18:45 63 99 09/24/19 18:30 71 99 09/24/19 18:15 65 99 09/24/19 18:02 63 153/80 H 99 09/24/19 18:00 37.1 C 65 66 16 153/80 H 99 Recovery Score Activity: Moves 4 extremities Respiration: Deep Breath/Cough Circulation: +/-20% PreAnes Value Consciousness: Fully Awake Oxygen Saturation: > 92% On Room Air Post Anesthesia Score: 10 Discharge Sedation Level of Care: Fast Track Phase II Post Sedation Plan On clinical assessment, the patient appears to have tolerated the sedation without complications. Patient is recovering as anticipated. Patient will continue to be monitored by nursing and may be discharged when jennifer tion discharge criteria are met per below protocol. Upon Completions of procedure up to 15 minutes continue every 5 minute vital signs and the P.A.R. score; then discharge to a Phase I or Fast Track to Phase II per the following guidelines: * Discharge Patient to appropriate Phase II area if PAR is 8 or greater or return to pre- procedure baseline. The post - procedure orders will be as directed. * If PAR score is less than 8 or not return to pre-procedure baseline then patient will follow Phase I monitoring till PAR is reached for Phase II. The Phase I may be done in procedure room or may call to secure a Phase I area. * If naloxone or flumazenil are used for reversal, hold in Phase I for continued monitoring from when last reversal dose was given for a minimum of 60 minutes or longer pending the nurse and/or physician discretion of patient condition before discharge to Phase II. Please call the Sedation Physician to re-evaluate and complete post-note for discharge to Phase II area. Do NOT discharge from procedure sedation or Phase 1 until post- sedation evaluation note is complete by procedure /sedation MD Sedation Discharge Instructions to be given to the patient at discharge to home.
[2019-09-25] MEDS: LOSARTAN POTASSIUM 50 MG TAB PO SCH (20:51)
[2019-09-25] MEDS: carvediloL 25 MG TAB PO SCH (20:51)
[2019-09-25] MEDS: GABAPENTIN 300 MG CAP PO SCH (20:52)
[2019-09-25] MEDS: CEFAZOLIN 1000MG 1,000 MG/7.5 ML SYR IV SCH (20:55)
[2019-09-25] MEDS ORDERED: TRAZODONE HCL 50 MG TAB PO SCH (21:00)
[2019-09-25] MEDS ORDERED: MoRPHine SULFATE 4 MG/ML 1 ML CARP\\VIAL IV STA (21:48)
[2019-09-26] MEDS: INSULIN ASPART 100 UNITS/ML 3 ML PEN SC SCH ×4 (00:14→12:17)
[2019-09-26] MEDS: CEFAZOLIN 1000MG 1,000 MG/7.5 ML SYR IV SCH ×2 (05:24→12:16)
[2019-09-26] MEDS: OXYCODONE/ACETAMINOPHEN 5mg/325mg TAB PO PRN ×2 (05:24→12:16)
[2019-09-26 06:30] LABS: Hematocrit (blood only) 46.1 % (42-52); Hemoglobin 16.3 g/dL (14.0-18.0); Mean Corpuscular Hemoglobin 31.8 pg (25-34); Mean Corpuscular Hgb Conc 35.4 g/dL (32-36); Mean Corpuscular Volume 89.9 fL (80-100); RDW Coefficient of Variation 14.1 % (11.5-14.5); RDW Standard Deviation 46.3 fL (36.4-46.3); Red Blood Count 5.13 M/uL (4.7-6.1); White Blood Count 5.91 K/uL (4.8-10.8)
[2019-09-26 06:35] LABS: Mean Platelet Volume 10.4 fL (7.4-10.4); Platelet Count 71 K/uL (130-400)
[2019-09-26 06:50] LABS: Eosinophils # (auto) 0.09 K/uL (0-0.5); Eosinophils % (auto) 1.5 %; Immature Granulocytes # (auto) 0.01 K/uL (0.00-0.02); Immature Granulocytes % (auto) 0.2 %; Lymphocytes # (auto) 0.64 K/uL (1.2-3.4); Lymphocytes % (auto) 10.8 %; Monocytes # (auto) 0.62 K/uL (0.11-0.59); Monocytes % (auto) 10.5 %; Neutrophils # (auto) 4.55 K/uL (1.4-6.5)
[2019-09-26 06:58] LABS: Albumin Level 3.4 gm/dl (3.4-5.0); BUN Creatinine Ratio 15.6 (10-20); Bilirubin Direct 0.2 mg/dl (0-0.2); Creatinine Clr Calc Pharmacy 64.3 ml/min; Est GFR (African American) 85.3; Est GFR (Non-African American) 73.6; Magnesium 1.7 mg/dl (1.8-2.4); Potassium 3.7 mmol/L (3.5-5.1)
[2019-09-26 07:01] LABS: Bilirubin,Total 0.9 mg/dl (0.2-1)
--- NOTE | 2019-09-26 08:05 | XRay Report ---
XR chest 2V PA/lateral HISTORY: Left-sided pacemaker placement. EXACT TIME ORDERED Evaluate for pneumothorax and l COMPARISON: Chest 09/24/2019. FINDINGS: Interval placement of a left-sided dual-chamber pacemaker. The leads are intact. No pneumot horax.. The lungs are clear. The heart is normal in size. Trace right pleural effusion. IMPRESSION: 1. Interval placement of a left-sided dual-chamber pacemaker. Leads are intact. 2. No pneumothorax. 3. Trace right pleural effusion. Electronically signed by: Nirav Pace M.D. 09/26/2019 8:03 AM
[2019-09-26] MEDS ORDERED: SIMVASTATIN 20 MG TAB PO SCH (09:00)
[2019-09-26] MEDS ORDERED: MAGNESIUM OXIDE 400 MG TAB PO SCH (09:00)
[2019-09-26] MEDS ORDERED: PANTOprazole 40 MG TAB PO SCH (09:00)
[2019-09-26] MEDS ORDERED: ROPINIROLE HCL 1 MG TABLET PO SCH (09:00)
[2019-09-26] MEDS ORDERED: CHOLECALCIFEROL 1,000 UNITS TAB PO SCH (09:00)
--- NOTE | 2019-09-26 09:31 | Cardiology Progress Note ---
Date of Service September 26, 2019 Assessment & Plan (1) Symptomatic bradycardia: Status post implantation of dual-chamber permanent pacemaker without evident complication. Patient's even be healing well. He certainly be discharged from my standpoint. He should refrain from lifting left arm above the shoulder behind the neck for 6 weeks. He should keep the wound dry the Steri-Strips intact for period of several days or until follow-up in our clinic next week. Subjective This morning the patient claims to be feeling well. He has minimal discomfort at the implant site. He is anxious to be discharged. Review of Systems Review of Systems: Per HPI Physical Exam Physical Exam: Device implant site appears to be healing well. Very small ecchymoses. No hematoma. No drainage. No erythema. Results & Data Vital Signs (Past 12 Hours) Vital Signs Temp Pulse Pulse Resp BP Pulse Ox 09/26/19 07:43 36.7 C 60 18 181/87 H 96 09/26/19 04:00 36.9 C 60 16 151/88 H 97 09/26/19 00:01 36.7 C 57 L 18 130/78 94 09/25/19 23:24 72 Diagnostic Findings Chest x-ray obtained this morning revealed good lead position without evidence of pneumothorax I performed a complete device interrogation which revealed good sensing and threshold parameters of both atrial ventricular leads.
[2019-09-26] MEDS: LOSARTAN POTASSIUM 50 MG TAB PO SCH (09:35)
[2019-09-26] MEDS: ASPIRIN 81 MG ECTAB PO SCH (09:35)
[2019-09-26] MEDS: carvediloL 25 MG TAB PO SCH (09:35)
[2019-09-26] MEDS: INSULIN GLARGINE SOLOSTAR 100 UNITS/ML 3 ML PEN SC SCH (09:36)
[2019-09-26] MEDS: GABAPENTIN 300 MG CAP PO SCH ×2 (09:36→17:04)
[2019-09-26] MEDS: CLOTRIMAZOLE 1% CR 15 GM TUBE EXT SCH (09:36)
[2019-09-26] MEDS: ENOXAPARIN INJ 40 MG/0.4 ML SYR SQ SCH (09:37)
[2019-09-26] MEDS: ACETAMINOPHEN 325 MG TAB PO PRN (09:41)
--- NOTE | 2019-09-26 10:29 | Pharmacy Report ---
Pharmacy Glycemic Short Note 2 - Date of Service September 26, 2019 - Glycemic Short BSG Results (Last 24 hours): 09/25/19 09/25/19 09/25/19 11:55 15:06 20:48 Glucose POC Glucose 134 H 79 126 H 09/26/19 09/26/19 09/26/19 00:08 04:03 06:01 Glucose 123 H POC Glucose 137 H 114 H 09/26/19 07:23 Glucose POC Glucose 121 H OUTPATIENT ANTIDIABETIC REGIMEN: * Metformin 500mg PO daily * A1c = 7.8% 09/24/19 ASSESSMENT: * Type 2 diabetic admitted for hypotension, bradycardia. BSGs look to be well controlled. We will continue with standing insulin orders as I do not anticipate an acute change in insulin requirements. PLAN FOR INPATIENT GLYCEMIC CONTROL: * Hold outpatient oral diabetes medications (metformin) * Basal insulin * Lantus 13 units SQ BID * Bolus insulin * NovoLog per scale Q 4 hrs initially * Goal Range: Low 110 mg/dL - High 140 mg/dL * Correction Factor: 30 mg/dL/unit * Nutritional / Prandial insulin per carb ratio of 1 unit per 10 grams CHO consumed PLAN FOR DISCHARGE: * I would start with Lantus 25u QAM, then further titrations per outpt provider. * I would recommend optimizing his metformin. Could increase to 500mg BIDM or 500mg TIDM. Would recommend adding a B-12 supplement as metformin can cause b- 12 deficiency.
[2019-09-26 12:11] LABS: Hepatitis A Antibody IgM NON-REACTIVE (NON-REACTIVE); Hepatitis B Core Antibody IgM NON-REACTIVE (NON-REACTIVE)
--- NOTE | 2019-09-26 14:32 | Discharge Summary ---
Date of Service September 26, 2019 Admission HPI Per Admitting Provider 69 yo male with history of diabetes, anemia, atherosclerosis who presented to the ED this morning via EMS with pacer pads in place. The patient recalls feeling fine the past few days, no ongoing issues. This morning he woke up around 4-5 am as he always does and he sat down to watch TV. He says he started to feel "weird." He could not pinpoint what was wrong but he just felt "off." Over the next 30 minutes he felt weaker and felt like he was going to pass out. He woke up his for assistance and she called EMS. While waiting for EMS he needed to move his bowels, he had a solid brown stool, no blood but afterwards he felt even weaker and more light headed. He lost consciousness at some point but then remembers EMS at his house and he remember having pacer pads and getting shocked to be paced. He had a very weak pulse, hypotensive and bradycardic in the field. In the ED he remained hypotensive and bradycardic. He became less responsive and his breathing deteriorated and he required emergen t intubation. He was taken to the component lab tech for possible STEMI, difficult to determine what was going on as there were no EKG available in which he was not paced. He was started on Dopamine for the hypotension and bradycardia. Temporary transvenous pacer placed by Dr. Hartman in the component lab tech. He started to become hypertensive and generated his own rhythm and dopamine was quickly titrated off. He had a left heart catheterization that showed some coronary disease but nothing severe, certainly no evidence of acute thrombosis. He was transferred to the ICU intubated. He was quickly extubated in the ICU after he woke up and was following commands. After extubation he felt fine, denied chest pain, denied dyspnea, denied cough. Lab work showed normal WBC, platelets 95k, K was high at 6, sugars were elevated in the 390's, Cr normal, CO2 normal at 29, lactic acid was 2.1. Lyme screen was negative. CXR showed cardiomegaly but no evidence of heart failure. CT head negative for acute changes. Patient admitted that a few weeks ago he had a syncopal episode that started similar to this one. He fell and struck his head/face. He did not seek medical attention at that time and he had no further episodes until now. He admits to drinking 4-6 beers a night, but he has only done this since he retired. He stresses that he is NOT an alcoholic. Principal Diagnosis Transient cardiogenic shock due to AV block Discharge Exam Constitutional WD/WN, vitals as above Eyes PERRL, conjunctivae normal, anicteric sclerae ENMT external ear and nose normal, oropharynx normal Neck trachea midline, no thyromegaly Respiratory normal respiratory effort, lungs clear to auscultation Cardiovascular RRR, no murmur, no edema Gastrointestinal (Abdomen) normal bowel sounds, soft, nontender, no hepatosplenomegaly Musculoskeletal no cyanosis or clubbing, extremities motor strength 5/5 Skin no rashes, warm and dry Neurologic patellar DTR's 2+ bilat, sensation intact and PERRL, EOMI, accommodation nl, no face palsy, no dysarthria Psychiatric A+Ox3, euthymic affect Lymphatic no cervical or axillary lymphadenopathy Discharge Data Allergies Allergy/AdvReac Type Severity Reaction Status Date / Time No Known Allergies Allergy Verified 09/24/19 07:40 Consultations 09/24/19 09:07 Consult Case Management - Discharge Planning Routine 09/24/19 09:08 Consult Investor Relations Coordinator Routine 09/26/19 07:46 Consult Cardiology Routine Procedures Performed Operation Date: 09/24/19 07:40 Actual Procedures p Cath, Left with Cors and Vent - Alfredo Hartman MD s Cineradiography w/Routine Exam - Alfredo Harmtan MD s Ins/RemTemporary Transvenous Pacer - Alfredo Hartman MD Operation Date: 09/25/19 12:20 Actual Procedures p Pacer with A/V Leads (Dual) - Alfredo Mcintyre MD Ordered Studies 09/24/19 07:37 CL Cath Imgs for PACS use only Stat 09/24/19 08:52 CT head/brain wo con Stat 09/25/19 12:22 CL Cath Imgs for PACS use only Routine Hospital Course (1) Hypotension: resolved, off of Dopamine shortly after admission likely due to bradycardia, AV block of unclear etiology echo with preserved EF, no valve disease left heart cath with no evidence of ACS, this was not due to STEMI no evidence of infection at this time H/H stable in summary, hypotension likely due to bradycardia, transient cardiogenic shock (2) Symptomatic bradycardia: unclear etiology Lyme screen negative no acute VT treated with temporary venous pacer morning of 09/24 cardiology following, permanent pacemaker inserted by Dr. Mcintyre on 09/25 plan to follow up with Dr. Mcintyre in one week for pacer check instructions provided for post pacer care, knows to not reach up with left arm or reach back (3) Chest pain: resolved left heart cath clean on 09/24 (4) Hyperglycemia: no evidence of DKA as HCO3 normal initially treated with insulin infusion discussed with pharmacy about a plan on day of discharge will start on Lantus 25 units daily as he tolerated well in the hospital and he is willing to use at home will increase Metformin to 500mg BID educated on importance of low carb diet, admits that he eats a lot of bread, eats a lot of pasta drinks 4-6 beers every evening he met with DM educator several times as well provided with meter, test strips, lancets will check sugars twice a day over next week, morning and afternoon will follow up with PCP in a week with readings (5) Hypomagnesemia: replaced (6) Hyperkalemia: likely due to hyperglycemia corrected quickly with insulin and IV fluids stable rest of admission Total Time Total Time Spent Total Time Spent (In Minutes): 47 minutes Total Time Includes: Examination of the Patient, Discharge Planning, Medication Reconciliation and Communication With Other Providers (Dr. Mcintyre, pharmacist) Discharge Plan Discharge Items Patient Disposition: Home - Self-Care Reason For Visit: HYPOTENSIVE,BRADYCARDIC Discharge Diagnosis: Bradycardia, AV block pacemaker placement Diabetes type II with hyperglycemia Condition on Discharge: Good Goals: follow up with Dr. Mcintyre for pacemaker check improve control of diabetes Activity: Per Instructions section Bathing: Keep incision dry Bathing Comment: Keep incision dry and Steri-Strip intact until follow-up next week. Exercise/Sports: None Driving/Machine Use: Resume 3 days after discharge Weightbearing: Full weightbearing Non-emergency contact: Primary Care Provider and Mems Engineer Call non-emergency contact if: you have any medication questions, your symptoms worsen, your pain is not controlled and you have a fever Follow-up/Referrals: Geri Yañez CRNP, MS, UNIT ASSEMBLER-C [Primary Care Provider] - 10/02/19 10:40 am (Please, follow up with Geri TAVARES on WednesdayOctober 02 at 10:40 am. *She will be your new primary care provider. Her office is located in [address] of [facility], next to this hospital. If you need to change this appointment, call the office at [phone].) Alfredo Mcintyre MD [Physician] - 10/02/19 10:00 am (Please, follow up at [facility] Office on WednesdayOctober 02 at 10:00 am. *The office is located next door to this hospital, in [address] of [facility]. If you need to change this appointment, call the office at [phone]. This is the same building as Geri TAVARES. Its just a different suite/office space.) Diet: Carb Consistent or DM2 Addtl Attending Provider Instructions: Medications: METFORMIN: dose increased to 500mg twice a day LANTUS: take 25 units every morning to help control glucose VITAMIN B12/FOLATE: take once a day as metformin can lower vitamin b12 Transient hypotension, slow heart rate still unclear what caused your heart to go slow no evidence of acute heart attack, no Lyme disease, no major electrolyte abnormalities permanent pacemaker in place so you will never have slow heart rate again follow up with Dr. Mcintyre as scheduled No lifting left arm above shoulder behind neck for 6 weeks. Keep wound dry and Steri-Strip intact until follow-up next week. Diabetes type II: poorly controlled, presented with hyperglycemia will increase Metformin to 500mg twice a day started on Lantus 25 units every morning please try to decrease amount of carbohydrates that you consume avoid large amounts of bread, pasta, sweets follow up with new PCP for management please check your sugars one to two times a day the next week and bring in results check every morning when you wake up and then check in the afternoon 1-2 hours after eating Pending Studies at Discharge: No Stand-Alone Forms: Call Back Authorization, [facility] [employer], Smoking Cessation Medications and DC Order Prescriptions: New Lantus Solostar U-100 Insulin 100 unit/mL (3 mL) insulin pen 25 units SQ DAILY Qty: 15 RF: 3 vitamin S22-ftehm acid 500-400 mcg tablet 1 tab PO DAILY Qty: 30 RF: 3 (DME) Accu-Chek Guide strip See Rx Instructions .ROUTE .MEDSUPPLY Qty: 50 RF: 3 (DME) lancets [Lancets,Ultra Thin] misc See Rx Instructions .ROUTE .MEDSUPPLY Qty: 50 RF: 3 Continued losartan 50 mg tablet 50 mg PO DAILY RF: 0 carvedilol 25 mg tablet 25 mg PO BID RF: 0 ropinirole 1 mg tablet 1 mg PO DAILY RF: 0 omeprazole 40 mg capsule,delayed release(DR/EC) 40 mg PO DAILY RF: 0 lorazepam 0.5 mg tablet 0.5 mg PO DAILY PRN (Reason: Anxiety) RF: 0 oxycodone-acetaminophen 10-325 mg tablet 1 tab PO QID PRN (Reason: Pain) RF: 0 simvastatin 20 mg tablet 20 mg PO DAILY RF: 0 trazodone 150 mg tablet 150 mg PO HS RF: 0 nitroglycerin 0.4 mg tablet, sublingual 0.4 mg sublingual UD PRN (Reason: Chest Pain) RF: 0 gabapentin 300 mg capsule 300 mg PO TID RF: 0 albuterol sulfate [Ventolin HFA] 90 mcg/actuation HFA aerosol inhaler 2 puff INHALATION Q4H PRN (Reason: Shortness Of Breath) RF: 0 Trelegy Ellipta 100-62.5-25 mcg blister with device 0 ea INHALATION DAILY RF: 0 aspirin 81 mg Tablet,Delayed Release (Dr/Ec) 81 mg PO DAILY RF: 0 cholecalciferol (vitamin D3) [Vitamin D3] 125 mcg (5,000 unit) Tablet 5,000 unit PO DAILY RF: 0 Changed metformin 500 mg tablet 500 mg PO BID 30 Days Qty: 60 RF: 2 Discharge Orders: Discharge Order (Routine); Ordered 09/26/19 Ordered By: Pipo Cartagena/Other Patient Handouts: Hyperglycemia, Hypoglycemia, Diabetes Type 2 Coping, Diabetes Healthy Meals Admission Data Admit Date/Time: 09/24/19 09:14 Attending Provider: Pipo Garcia Admit Provider: Pipo Garcia Primary Care Provider: Geri Yañez Other Providers: James Granados ; Alfredo Mcintyre. Other Interventions: Discharge Summary Assessment (RN) Last Done: 09/26/19 16:08 DC Date/Time DO NOT enter until pt leaves facility: 09/26/19 18:25
[2019-09-26] MEDS ORDERED: INSULIN ASPART 100 UNITS/ML 3 ML PEN SC SCH (16:30)
--- NOTE | 2019-09-26 17:46 | Emergency Department Note ---
Entered by Jessica Ortega acting as a scribe for History of Present Illness General Chief complaint: Chest Pain Stated complaint: CHEST PAIN Time Seen by Provider: 09/24/19 07:27 Source: patient and EMS History of Present Illness Onset (ago): hour(s) (this morning) Location: chest Pain Consistency: + other (episode) Quality: + other (pressure) Associated symptoms: + shortness of breath and + other (seizure like activity, intermittent loss of consciousness) The patient is a 69 year old male that is presenting to the Emergency Room with complaints of intermittent chest pain that started this morning while the patient was watching tv. The patient reports that he felt like he was have a weird pressure in his chest and called EMS. EMS states that the patient was alert and oriented on their arrival and did not have any significant complaints. EMS notes that he appeared to be in a "ventricular standstill." EMS notes that the patient would show a normal rate around 80bpm and then the beat would stop. EMS reports that they applied the pacer pads at this time. EMS states that the patient had some seizure like activity on the way to the ED but also appeared to be in v. fib on the monitor. EMS reports that the patient would be awake and alert and then appear to intermittently lose consciousness for just a few seconds. EMS notes that the patient is a known diabetic and had a blood glucose reading of 371mg/dL. EMS reports that the patients home is not clean. EMS notes that the patient reports being compliant with his medications even though he is not sure what they are treating. EMS states that the patient was given 324mg- Aspirin and 1mg-Ativan prior to pacer placement. EMS notes that the patient complained of a weird feeling and complained about the pacer on the way in but appeared to have no other complaints just prior to arrival. EMS reports that the patient has not had any similar events in the past but notes that the patient had a syncopal episode 1 week ago that was not evaluated by a provider. EMS notes that the patient is edentulous and does not wear dentures at baseline. The patient reports that he had a similar episode 2 weeks ago and called for an ambulance, but he notes that the ambulance never arrived. He denies any known heart issues or any known history of atrial fibrillation. He notes that he is having a slight difficulty breathing. Difficulty obtaining a history on the patient due to his clinical condition. Home Medications Home Medications Medication Instructions Recorded Confirmed Type Trelegy Ellipta 0 ea INHALATION DAILY 09/24/19 09/24/19 History albuterol sulfate [Ventolin HFA] 2 puff INHALATION Q4H PRN 09/24/19 09/24/19 History aspirin 81 mg PO DAILY 09/24/19 09/24/19 History carvedilol 25 mg PO BID 09/24/19 09/24/19 History cholecalciferol (vitamin D3) 5,000 unit PO DAILY 09/24/19 09/24/19 History [Vitamin D3] gabapentin 300 mg PO TID 09/24/19 09/24/19 History lorazepam 0.5 mg PO DAILY PRN 09/24/19 09/24/19 History losartan 50 mg PO DAILY 09/24/19 09/24/19 History nitroglycerin 0.4 mg SUBLINGUAL UD PRN 09/24/19 09/24/19 History omeprazole 40 mg PO DAILY 09/24/19 09/24/19 History oxycodone-acetaminophen 1 tab PO QID PRN 09/24/19 09/24/19 History ropinirole 1 mg PO DAILY 09/24/19 09/24/19 History simvastatin 20 mg PO DAILY 09/24/19 09/24/19 History trazodone 150 mg PO HS 09/24/19 09/24/19 History blood sugar diagnostic [Accu-Chek #50 ea 09/26/19 Rx Guide] insulin glargine [Lantus Solostar 25 units SQ DAILY #15 ml 09/26/19 Rx U-100 Insulin] lancets [Lancets,Ultra Thin] #50 ea 09/26/19 Rx metformin 500 mg PO BID 30 Days #60 tab 09/26/19 09/24/19 Rx vitamin C24-[id number] acid 1 tab PO DAILY #30 tab 09/26/19 Rx Allergies Allergy/AdvReac Type Severity Reaction Status Date / Time No Known Allergies Allergy Verified 09/24/19 07:40 Past Med/Surg History Medical History Anemia Asthma Atherosclerosis Diabetes Hyperkalemia (Resolved) Kidney stones Thrombocytopenia Family History Other Diabetes Hypertension Social History Preferred Language: Burkinan Communication Ability: Effective Beliefs That Will Affect Care: None marital status: Current Living Situation: Spouse current occupational status: retired Feels Safe at Home: Yes Smoking Status: Former smoker Hx Alcohol Use: Yes Alcohol type: beer Hx Substance Use: Yes substance use type: does not use Review of Systems See HPI for pertinent positives & negatives. Other (unable to review total ROS due to clinical condition and intermittent LOC) Physical Exam Vital Signs Vital Signs - 24 hr 09/24/19 07:01 09/24/19 07:21 09/24/19 07:32 Temperature 97.7 F Temperature Source Axillary Pulse Rate 80 80 Pulse Rate [Apical] 80 Pulse Rhythm [Apical] Pulse Strength [Apical] Respiratory Rate 18 18 16 Respiratory Effort / Characteristics Non-Labored Respiratory Depth Normal Normal Blood Pressure 86/37 L Blood Pressure [Left Arm] Blood Pressure [Right Arm] 120/70 Blood Pressure Mean 53 Blood Pressure Mean [Left Arm] Blood Pressure Mean [Right Arm] 86 Blood Pressure Position [Left Arm] Blood Pressure Position [Right Arm] Pulse Oximetry 96 96 97 Oxygen Delivery Method Nasal Cannula Oxygen Flow Rate 4 Fraction of Inspired Oxygen 100 Sepsis Recent Fever Within 48 Hours No Sepsis New/Unexplained Change in Mental Status No Sepsis Action Taken by Nursing No Action Required End-Tidal CO2 39 09/24/19 07:39 09/24/19 07:40 09/24/19 07:41 Temperature Temperature Source Pulse Rate 80 80 80 Pulse Rate [Apical] Pulse Rhythm [Apical] Pulse Strength [Apical] Respiratory Rate Respiratory Effort / Characteristics Respiratory Depth Blood Pressure Blood Pressure [Left Arm] Blood Pressure [Right Arm] Blood Pressure Mean Blood Pressure Mean [Left Arm] Blood Pressure Mean [Right Arm] Blood Pressure Position [Left Arm] Blood Pressure Position [Right Arm] Pulse Oximetry 100 100 100 Oxygen Delivery Method Oxygen Flow Rate Fraction of Inspired Oxygen 80 50 30 Sepsis Recent Fever Within 48 Hours Sepsis New/Unexplained Change in Mental Status Sepsis Action Taken by Nursing End-Tidal CO2 09/24/19 07:43 09/24/19 07:49 09/24/19 08:10 Temperature Temperature Source Pulse Rate 80 69 Pulse Rate [Apical] 80 Pulse Rhythm [Apical] Pulse Strength [Apical] Respiratory Rate 16 16 Respiratory Effort / Characteristics Non-Labored Respiratory Depth Normal Blood Pressure Blood Pressure [Left Arm] Blood Pressure [Right Arm] 78/52 L Blood Pressure Mean Blood Pressure Mean [Left Arm] Blood Pressure Mean [Right Arm] 60 Blood Pressure Position [Left Arm] Blood Pressure Position [Right Arm] Pulse Oximetry 96 99 100 Oxygen Delivery Method Mechanical Vent Oxygen Flow Rate Fraction of Inspired Oxygen 100 Sepsis Recent Fever Within 48 Hours Sepsis New/Unexplained Change in Mental Status Sepsis Action Taken by Nursing End-Tidal CO2 09/24/19 08:18 09/24/19 08:54 09/24/19 09:07 Temperature Temperature Source Pulse Rate 74 Pulse Rate [Apical] 80 Pulse Rhythm [Apical] Regular Pulse Strength [Apical] Normal Respiratory Rate 20 22 Respiratory Effort / Characteristics Mechanically Ventilated Respiratory Depth Blood Pressure Blood Pressure [Left Arm] Blood Pressure [Right Arm] Blood Pressure Mean Blood Pressure Mean [Left Arm] Blood Pressure Mean [Right Arm] Blood Pressure Position [Left Arm] Blood Pressure Position [Right Arm] Pulse Oximetry 100 100 Oxygen Delivery Method Oxygen Flow Rate Fraction of Inspired Oxygen 100 30 Sepsis Recent Fever Within 48 Hours Sepsis New/Unexplained Change in Mental Status Sepsis Action Taken by Nursing End-Tidal CO2 09/24/19 09:13 Temperature 98.2 F Temperature Source Oral Pulse Rate Pulse Rate [Apical] 79 Pulse Rhythm [Apical] Regular Pulse Strength [Apical] Normal Respiratory Rate 18 Respiratory Effort / Characteristics Non-Labored Respiratory Depth Normal Blood Pressure Blood Pressure [Left Arm] 187/82 H Blood Pressure [Right Arm] 187/82 H Blood Pressure Mean Blood Pressure Mean [Left Arm] 117 Blood Pressure Mean [Right Arm] 117 Blood Pressure Position [Left Arm] Lying Blood Pressure Position [Right Arm] Lying Pulse Oximetry 100 Oxygen Delivery Method Nasal Cannula Oxygen Flow Rate 3 Fraction of Inspired Oxygen Sepsis Recent Fever Within 48 Hours Sepsis New/Unexplained Change in Mental Status Sepsis Action Taken by Nursing End-Tidal CO2 GENERAL: alert, ill appearing, well nourished, no distress, non-toxic. Poor hygiene. EYE EXAM: normal conjunctiva, PERRL and EOM's grossly intact OROPHARYNX: no exudate, no erythema. DMM. Edentulous. NECK: supple, no nuchal rigidity, no adenopathy, non-tender LUNGS: Clear to auscultation. Normal chest wall mechanics, no w/r/r HEART: no murmurs, S1 normal and S2 normal. Pacer pads applied to chest. Patient being actively paced. ABDOMEN: abdomen soft, non-tender, normo-active bowel sounds, no masses, no rebound or guarding. BACK: Back is symmetrical on inspection and there is no deformity, no midline tenderness, no CVA tenderness. SKIN: no rashes and no bruising, ashen color UPPER EXTREMITIES: upper extremities are grossly normal. FROM, nml pulses b/l. LOWER EXTREMITIES: No pitting edema. FROM, nml pulses b/l. NEURO EXAM: Awake, alert, moving all extremities spontaneously then will intermittently become unresponsive. No seizure like activity noted during these events. Unable to perform any other neurological testing due to clinical condition. Procedures Intubation Time out performed: Yes sedative: Versed Mg Given: 2 paralytic: Rocuronium Mg Given: 80 Assist Device Used: Bougie ET Tube Size: 7.5 ET Tube Uncuffed: No Tube Secured Depth (cm): 21 Tube Secured Location: lips Tube Placement Confirmation: visualized tube passing through cords, equal breath sounds bilaterally, no breath sounds over epigastrium and confirmation by capnometry Patient Tolerated Procedure: well and no complications Intubation Complications: none Course Course 0701:The patient was evaluated in room B01. A complete history and physical examination was performed. Patient is being actively paced upon arrival to the ED. 0707: Fentanyl and Versed ordered. Cardiology was paged. 0708: 2mg-Versed and 50mcg-Fentanyl administered. Bedside US completed. Patient's heart appears to stop beating every few heartbeats. 0710: I discussed the patients case with Dr. Hartman, Cardiology, who will come to the ED to evaluate the patient further in the cardiac catheterization lab. Heart Alert called via confidential secretary. 0712: Heart alert is being called at this time. 0718: Blood pressure is 148/114. I asked nursing staff to obtain manual BP. Pt with intermittent episodes of LOC. I discussed need for cardiac cath, possible PCI, possible pacer placement, and possible need for intubation and pt stated "Do whatever you need to do. Don't let me ". 0722: 20 mg Etomidate being administered. 80mg-Rocuronium administered. BP is 170/70. RT at bedside. 0723: Intubation performed at this time without complication. 0726: Additional 2mg-Versed ordered. X-ray taken at this time. 0730: BP is 184/157. I again asked for manual BP. 0731: I attempted to call the patients at the available number on patients personal belongings, but the number did not work. 0740: Repeat manual BP hypotensive. Pt has received almost 1 L of IVF that had been started by EMS. 0749: Dopamine drip started. Patient is going to the Cardiac Catheterization Lab. Dr. Hartman is now at bedside. Administered Medications Acetaminophen (Tylenol) 650 mg PO Q6H PRN PRN Reason: Pain Stop: 10/25/19 09:11 Last Admin: 09/26/19 09:41 Dose: 650 mg Documented by: [id number] Admin: 09/25/19 09:33 Dose: 650 mg Documented by: [id number] Aspirin (Ecotrin Ectab) 81 mg PO QAM [facility] Stop: 10/25/19 08:59 Last Admin: 09/26/19 09:35 Dose: 81 mg Documented by: [id number] Admin: 09/25/19 07:32 Dose: Not Given Documented by: [id number] Carvedilol (Coreg) 25 mg PO BID [facility] Stop: 10/25/19 20:59 Last Admin: 09/26/19 09:35 Dose: 25 mg Documented by: [id number] Admin: 09/25/19 20:51 Dose: 25 mg Documented by: [id number] Clotrimazole (Lotrimin 1%) 1 appln EXT BID [facility] Stop: 10/24/19 10:29 Last Admin: 09/26/19 09:36 Dose: 1 appln Documented by: [id number] Admin: 09/25/19 20:53 Dose: 1 appln Documented by: [id number] Admin: 09/25/19 07:31 Dose: 1 appln Documented by: [id number] Admin: 09/24/19 20:31 Dose: 1 appln Documented by: [id number] Admin: 09/24/19 11:14 Dose: 1 appln Documented by: [id number] Enoxaparin Sodium (Lovenox) 40 mg SQ QAM [facility] Stop: 10/25/19 08:59 Last Admin: 09/26/19 09:37 Dose: 40 mg Documented by: [id number] Admin: 09/25/19 09:10 Dose: Not Given Documented by: [id number] Gabapentin (Neurontin) 300 mg PO TID [facility] Stop: 10/25/19 20:59 Last Admin: 09/26/19 17:04 Dose: 300 mg Documented by: [id number] Admin: 09/26/19 09:36 Dose: 300 mg Documented by: [id number] Admin: 09/25/19 20:52 Dose: 300 mg Documented by: [id number] Cefazolin Sodium (Ancef 1000mg) 1,000 mg in 7.5 mls @ 2.5 mls/min IV Q8H [facility]; Protocol Stop: 09/26/19 20:29 Last Admin: 09/26/19 12:16 Dose: 2.5 mls/min Documented by: [id number] Admin: 09/26/19 05:24 Dose: 2.5 mls/min Documented by: [id number] Admin: 09/25/19 20:55 Dose: 2.5 mls/min Documented by: [id number] Insulin Aspart (Novolog Flexpen) 0 units SC ACHS [facility] Stop: 10/25/19 11:59 Last Admin: 09/26/19 17:06 Dose: 4 units Documented by: [id number] Cosigned by: [id number] Insulin Glargine (Lantus Solostar Pen) 13 units SC BID [facility]; Protocol Stop: 10/25/19 08:59 Last Admin: 09/26/19 09:36 Dose: 13 units Documented by: [id number] Cosigned by: [id number] Admin: 09/25/19 20:56 Dose: 13 units Documented by: [id number] Cosigned by: [id number] Admin: 09/25/19 09:03 Dose: 13 units Documented by: [id number] Cosigned by: [id number] Losartan Potassium (Cozaar) 50 mg PO DAILY [facility] Stop: 10/25/19 18:38 Last Admin: 09/26/19 09:35 Dose: 50 mg Documented by: [id number] Admin: 09/25/19 20:51 Dose: 50 mg Documented by: [id number] Magnesium Oxide (Mag-Ox) 400 mg PO QAM [facility] Stop: 10/26/19 08:59 Last Admin: 09/26/19 09:35 Dose: 400 mg Documented by: [id number] Oxycodone/Acetaminophen (Percocet 5mg/325mg) 1 tab PO Q6H PRN PRN Reason: Pain Stop: 10/08/19 13:59 Last Admin: 09/26/19 12:16 Dose: 1 tab Documented by: [id number] Admin: 09/26/19 05:24 Dose: 1 tab Documented by: [id number] Admin: 09/25/19 19:21 Dose: 1 tab Documented by: [id number] Admin: 09/25/19 05:49 Dose: 1 tab Documented by: [id number] Pantoprazole Sodium (Protonix) 40 mg PO DAILY [facility] Stop: 10/26/19 08:59 Last Admin: 09/26/19 09:36 Dose: 40 mg Documented by: [id number] Ropinirole HCl (Requip) 1 mg PO DAILY [facility] Stop: 10/26/19 08:59 Last Admin: 09/26/19 09:36 Dose: 1 mg Documented by: [id number] Simvastatin (Zocor) 20 mg PO DAILY [facility] Stop: 10/26/19 08:59 Last Admin: 09/26/19 09:36 Dose: 20 mg Documented by: [id number] Trazodone HCl (Desyrel) 150 mg PO HS [facility] Stop: 10/25/19 20:59 Last Admin: 09/25/19 20:52 Dose: 150 mg Documented by: [id number] Vitamin D (Vitamin D3) 5,000 units PO DAILY [facility] Stop: 10/26/19 08:59 Last Admin: 09/26/19 09:35 Dose: 5,000 units Documented by: [id number] Discontinued Medications Bacitracin (Bacitracin) Confirm Administered Dose 50,000 units .ROUTE .STK-MED ONE Stop: 09/25/19 12:08 Last Admin: 09/25/19 12:54 Dose: 50,000 units Documented by: [id number] Bupivacaine HCl (Sensorcaine 0.25% Inj) Confirm Administered Dose 30 ml .ROUTE .STK-MED ONE Stop: 09/25/19 12:08 Last Admin: 09/25/19 12:54 Dose: 30 ml Documented by: [id number] Calcium Chloride (Calcium Chloride 10%) Confirm Administered Dose 1,000 mg IV .STK-MED ONE Stop: 09/24/19 08:17 Last Admin: 09/24/19 10:29 Dose: Not Given Documented by: [id number] Cefazolin Sodium (Ancef) Confirm Administered Dose 2,000 mg .ROUTE .STK-MED ONE Stop: 09/25/19 12:40 Last Admin: 09/25/19 12:54 Dose: 1,000 mg Documented by: [id number] Fentanyl Citrate (Fentanyl Citrate) Confirm Administered Dose 100 mcg .ROUTE .STK-MED ONE Stop: 09/24/19 07:08 Last Admin: 09/24/19 10:28 Dose: Not Given Documented by: [id number] Fentanyl Citrate (Fentanyl Citrate) Confirm Administered Dose 100 mcg .ROUTE .STDecoSnap-MED ONE Stop: 09/24/19 07:40 Last Admin: 09/24/19 10:29 Dose: Not Given Documented by: [id number] Fentanyl Citrate (Fentanyl Citrate) Confirm Administered Dose 100 mcg .ROUTE .STDecoSnap-MED ONE Stop: 09/25/19 12:40 Last Admin: 09/25/19 13:29 Dose: 75 mcg Documented by: [id number] Heparin Sodium (Porcine) (Heparin Iv Bolus (Switchboard Operator Helper Use Only)) Confirm Administered Dose 10,000 units .ROUTE .DecoSnap-[facility] ONE Stop: 09/24/19 07:39 Last Admin: 09/24/19 10:28 Dose: Not Given Documented by: [id number] Heparin Sodium/Sodium Chloride (Heparin/Nss 1000 Unit/500ml Flush Bag) Confirm Administered Dose 3,000 units IV .DecoSnap-[facility] ONE Stop: 09/24/19 07:40 Last Admin: 09/24/19 10:29 Dose: Not Given Documented by: [id number] Hydralazine HCl (Hydralazine Hcl) Confirm Administered Dose 20 mg .ROUTE .Instagarage- [facility] ONE Stop: 09/24/19 08:48 Last Admin: 09/24/19 10:30 Dose: Not Given Documented by: [id number] Sodium Chloride (Nss 1000ml) 1,000 mls @ 250 mls/hr IV .Q4H [facility] Stop: 09/24/19 11:29 Last Admin: 09/24/19 11:13 Dose: Not Given Documented by: [id number] Dopamine HCl/Dextrose (Dopamine / D5w) 400 mg in 250 mls @ 16.838 mls/hr IV .[id number] [facility]; Protocol Stop: 10/24/19 07:59 Last Admin: 09/24/19 11:13 Dose: Not Given Documented by: [id number] Insulin Human Regular 10 units (/ Syringe) 10 mls @ 30 mls/min IV ONE ONE Stop: 09/24/19 08:46 Last Admin: 09/24/19 10:30 Dose: Not Given Documented by: [id number] Sodium Chloride (Nss 1000ml) 1,000 mls @ 100 mls/hr IV .Q10H [facility] Stop: 09/24/19 14:14 Last Infusion: 09/24/19 15:00 Dose: 0 mls/hr Documented by: [id number] Admin: 09/24/19 10:00 Dose: 100 mls/hr Documented by: [id number] Magnesium Sulfate/Dextrose (Magnesium Sulfate / D5w) 1 gm in 100 mls @ 100 mls/hr IV ONE ONE Stop: 09/24/19 10:34 Last Admin: 09/24/19 10:30 Dose: Not Given Documented by: [id number] Magnesium Sulfate/Dextrose (Magnesium Sulfate / D5w) 1 gm in 100 mls @ 100 mls/hr IV Q1H [facility] Stop: 09/25/19 07:31 Last Infusion: 09/25/19 09:08 Dose: 0 mls/hr Documented by: [id number] Admin: 09/25/19 06:54 Dose: 100 mls/hr Documented by: [id number] Infusion: 09/25/19 06:53 Dose: 0 mls/hr Documented by: [id number] Admin: 09/25/19 05:48 Dose: 100 mls/hr Documented by: [id number] Insulin Aspart (Novolog Flexpen) 0 units SC ACHS [facility] Stop: 10/24/19 11:29 Last Admin: 09/25/19 07:32 Dose: 1 units Documented by: [id number] Cosigned by: [id number] Admin: 09/24/19 20:31 Dose: Not Given Documented by: [id number] Cosigned by: [id number] Admin: 09/24/19 17:15 Dose: Not Given Documented by: [id number] Cosigned by: [id number] Admin: 09/24/19 11:57 Dose: 3 units Documented by: [id number] Cosigned by: [id number] Insulin Aspart (Novolog Flexpen) 0 units SC Q4 [facility] Stop: 10/25/19 11:59 Last Admin: 09/26/19 12:17 Dose: 7 units Documented by: [id number] Cosigned by: [id number] Admin: 09/26/19 08:33 Dose: 5 units Documented by: [id number] Cosigned by: [id number] Admin: 09/26/19 04:05 Dose: Not Given Documented by: [id number] Cosigned by: [id number] Admin: 09/26/19 00:14 Dose: Not Given Documented by: [id number] Cosigned by: [id number] Admin: 09/25/19 20:56 Dose: Not Given Documented by: [id number] Cosigned by: [id number] Admin: 09/25/19 15:15 Dose: Not Given Documented by: [id number] Cosigned by: [id number] Admin: 09/25/19 11:59 Dose: Not Given Documented by: [id number] Cosigned by: [id number] Insulin Glargine (Lantus Solostar Pen) 20 units SC BID [facility] Stop: 10/24/19 20:59 Last Admin: 09/24/19 20:30 Dose: 20 units Documented by: [id number] Cosigned by: [id number] Insulin Glargine (Lantus Solostar Pen) 5 units SC NOW STA Stop: 09/24/19 10:47 Last Admin: 09/24/19 11:15 Dose: 5 units Documented by: [id number] Cosigned by: [id number] Lidocaine HCl (Xylocaine 1% (Local)) Confirm Administered Dose 20 ml .ROUTE .STK-MED ONE Stop: 09/25/19 12:08 Last Admin: 09/25/19 12:54 Dose: 20 ml Documented by: [id number] Lorazepam (Ativan) 0.5 mg PO NOW STA Stop: 09/25/19 00:45 Last Admin: 09/25/19 01:08 Dose: 0.5 mg Documented by: [id number] Magnesium Sulfate (Magnesium Sulfate 50%) Confirm Administered Dose 2 gm IV .STK-MED ONE Stop: 09/24/19 08:31 Last Admin: 09/24/19 10:29 Dose: Not Given Documented by: [id number] Midazolam HCl (Versed) Confirm Administered Dose 10 mg .ROUTE .STK-MED ONE Stop: 09/24/19 07:08 Last Admin: 09/24/19 10:28 Dose: Not Given Documented by: [id number] Midazolam HCl (Versed) Confirm Administered Dose 2 mg .ROUTE .STK-MED ONE Stop: 09/24/19 07:40 Last Admin: 09/24/19 10:29 Dose: Not Given Documented by: [id number] Midazolam HCl (Versed) Confirm Administered Dose 5 mg .ROUTE .STK-MED ONE Stop: 09/25/19 12:40 Last Admin: 09/25/19 13:29 Dose: 3 mg Documented by: [id number] Miscellaneous () Confirm Administered Dose 1 ea .ROUTE .STK-MED ONE Stop: 09/24/19 06:55 Last Admin: 09/24/19 10:28 Dose: Not Given Documented by: [id number] Miscellaneous Information (Dc All Previously Ordered Diabetes Meds) 1 ea N/A ONE ONE Stop: 09/24/19 10:47 Last Admin: 09/24/19 11:15 Dose: 1 ea Documented by: [id number] Morphine Sulfate (Morphine Sulfate) 4 mg IV NOW STA Stop: 09/25/19 21:49 Last Admin: 09/25/19 21:56 Dose: 4 mg Documented by: [id number] Nicardipine HCl (Cardene) Confirm Administered Dose 25 mg .ROUTE .STK-MED ONE Stop: 09/24/19 07:39 Last Admin: 09/24/19 10:28 Dose: Not Given Documented by: [id number] Nitroglycerin/Dextrose (Nitroglycerin/D5w 100 Mcg/Ml 20ml Syringe) Confirm Administered Dose 2,000 mcg .ROUTE .STK-MED ONE Stop: 09/24/19 07:41 Last Admin: 09/24/19 10:29 Dose: Not Given Documented by: [id number] Oxycodone/Acetaminophen (Percocet 5mg/325mg) 1 tab PO Q8 PRN PRN Reason: Pain Stop: 10/08/19 13:59 Last Admin: 09/24/19 21:27 Dose: 1 tab Documented by: [id number] Admin: 09/24/19 14:33 Dose: 1 tab Documented by: [id number] Sodium Bicarbonate (Sodium Bicarbonate 8.4%) Confirm Administered Dose 50 meq .ROUTE .STK-MED ONE Stop: 09/24/19 08:17 Last Admin: 09/24/19 10:29 Dose: Not Given Documented by: [id number] Trazodone HCl (Desyrel) 150 mg PO NOW ONE Stop: 09/24/19 23:04 Last Admin: 09/24/19 23:18 Dose: 150 mg Documented by: [id number] Critical Care Time Critical Care Time: Yes Total Critical Care Time: 45 Critical care of 45 min performed to assess and manage high likelihood of life- threatening dysrhythmia and syncope, involving transthoracic pacing, labs, cxr, etc with frequent reassessment. This time includes bedside time, treatment discussions with patient/family/consultants, documentation time and excludes procedure time. Medical Decision Making Differential Diagnosis Differential diagnoses includes but is not limited to acute coronary syndrome, myocardial infarction, pericarditis, pulmonary embolus, aortic dissection, pneumonia, pneumothorax, musculoskeletal, shingles, esophageal, vasovagal event, infection, hypoglycemia, electrolyte abnormalities, intracerebral event, toxicologic, neurologic as well as others were entertained. Medical Records Attestation: I reviewed the patient's medical records. Home Medications Current Medication List: was personally reviewed by me Laboratory Data Attestation: I reviewed the patient's lab results. Result diagrams: 09/26/19 06:01 09/26/19 06:01 Lab Results 09/24/19 09/24/19 09/24/19 Range/Units 07:10 07:10 07:10 WBC 8.51 (4.8-10.8) K/uL RBC 5.30 (4.7-6.1) M/uL Hgb 17.1 (14.0-18.0) g/dL POC Hgb (14.0-18.0) g/dl Hct 48.4 (42-52) % POC Hct (42-52) % MCV 91.3 (80-100) fL MCH 32.3 (25-34) pg MCHC 35.3 (32-36) g/dL RDW Std Deviation 46.8 H (36.4-46.3) fL RDW Coeff of Stephanie 14.3 (11.5-14.5) % Plt Count 95 L (130-400) K/uL MPV 11.0 H (7.4-10.4) fL Immature Gran % (Auto) 0.2 % Neut % (Auto) 77.0 % Lymph % (Auto) 14.5 % Motley % (Auto) 6.9 % Eos % (Auto) 1.3 % Baso % (Auto) 0.1 % Immature Gran # (Auto) 0.02 (0.00-0.02) K/uL Neut # (Auto) 6.55 H (1.4-6.5) K/uL Lymph # (Auto) 1.23 (1.2-3.4) K/uL Motley # (Auto) 0.59 (0.11-0.59) K/uL Eos # (Auto) 0.11 (0-0.5) K/uL Baso # (Auto) 0.01 (0-0.2) K/uL Platelet Estimate Decreased L (Normal) PT 13.0 H (9.0-12.0) Seconds INR 1.3 H (0.9-1.1) APTT 25.4 (21.0-31.0) Seconds PTT Ratio 0.9 POC Sodium (135-144) mEq/L Sodium 141 (136-145) mmol/L POC Potassium (3.3-5.0) mEq/L Potassium 6.1 H* (3.5-5.1) mmol/L POC Chloride (101-112) mEq/L Chloride 109 H (98-107) mmol/L Carbon Dioxide 29 (21-32) mmol/L POC Total CO2 (24-31) mEq/l Anion Gap 3.0 (3-11) POC Anion Gap (16-25) mmol/L POC BUN (7-18) mg/dl BUN 16 (7-18) mg/dl Creatinine 1.20 (0.6-1.4) mg/dl POC Creatinine (0.6-1.3) mg/dl Est Cr Clr Drug Dosing 62.6 ml/min Est GFR ( Amer) 70.1 Est GFR (Non-Af Amer) 60.5 BUN/Creatinine Ratio 13.1 (10-20) Glucose 381 H* (70-99) mg/dl POC Glucose (other) (70-99) mg/dl Estimat Average Glucose mg/dl Hemoglobin A1c (4.5-5.6) % Calcium 8.5 (8.5-10.1) mg/dl POC Ioniz Calcium Ky (1.12-1.32) mmol/l Magnesium 1.4 L (1.8-2.4) mg/dl Total Bilirubin 0.9 (0.2-1) mg/dl AST 63 H (15-37) U/L ALT 77 (12-78) U/L Alkaline Phosphatase 106 (45-117) U/L Total Creatine Kinase 62 (39-308) U/L CK-MB (CK-2) 3.3 (0.5-3.6) ng/ml CK/CKMB % Calc 5.3 H (0-3.0) POC Troponin I (0-0.045) ng/ml Troponin I 0.016 (0-0.045) ng/ml Total Protein 6.0 L (6.4-8.2) gm/dl Albumin 3.4 (3.4-5.0) gm/dl Globulin 2.6 (2.5-4.0) gm/dl Albumin/Globulin Ratio 1.3 (0.9-2) Lipase 108 (73-393) U/L Beta-Hydroxybutyric Acd 6.03 H (0.2-2.81) mg/dl TSH 1.010 (0.300-4.500) uIu/ml Blood Type Antibody Screen 09/24/19 09/24/19 09/24/19 Range/Units 07:10 07:13 07:18 WBC (4.8-10.8) K/uL RBC (4.7-6.1) M/uL Hgb (14.0-18.0) g/dL POC Hgb 16.3 (14.0-18.0) g/dl Hct (42-52) % POC Hct 48 (42-52) % MCV (80-100) fL MCH (25-34) pg MCHC (32-36) g/dL RDW Std Deviation (36.4-46.3) fL RDW Coeff of Stephanie (11.5-14.5) % Plt Count (130-400) K/uL MPV (7.4-10.4) fL Immature Gran % (Auto) % Neut % (Auto) % Lymph % (Auto) % Motley % (Auto) % Eos % (Auto) % Baso % (Auto) % Immature Gran # (Auto) (0.00-0.02) K/uL Neut # (Auto) (1.4-6.5) K/uL Lymph # (Auto) (1.2-3.4) K/uL Motley # (Auto) (0.11-0.59) K/uL Eos # (Auto) (0-0.5) K/uL Baso # (Auto) (0-0.2) K/uL Platelet Estimate (Normal) PT (9.0-12.0) Seconds INR (0.9-1.1) APTT (21.0-31.0) Seconds PTT Ratio POC Sodium 140 (135-144) mEq/L Sodium (136-145) mmol/L POC Potassium 5.9 H (3.3-5.0) mEq/L Potassium (3.5-5.1) mmol/L POC Chloride 104 (101-112) mEq/L Chloride (98-107) mmol/L Carbon Dioxide (21-32) mmol/L POC Total CO2 26 (24-31) mEq/l Anion Gap (3-11) POC Anion Gap 16.0 (16-25) mmol/L POC BUN 16 (7-18) mg/dl BUN (7-18) mg/dl Creatinine (0.6-1.4) mg/dl POC Creatinine 1.1 (0.6-1.3) mg/dl Est Cr Clr Drug Dosing ml/min Est GFR ( Amer) Est GFR (Non-Af Amer) BUN/Creatinine Ratio (10-20) Glucose (70-99) mg/dl POC Glucose (other) 362 H* (70-99) mg/dl Estimat Average Glucose 177 mg/dl Hemoglobin A1c 7.8 H (4.5-5.6) % Calcium (8.5-10.1) mg/dl POC Ioniz Calcium Ky 1.18 (1.12-1.32) mmol/l Magnesium (1.8-2.4) mg/dl Total Bilirubin (0.2-1) mg/dl AST (15-37) U/L ALT (12-78) U/L Alkaline Phosphatase (45-117) U/L Total Creatine Kinase (39-308) U/L CK-MB (CK-2) (0.5-3.6) ng/ml CK/CKMB % Calc (0-3.0) POC Troponin I < 0.03 (0-0.045) ng/ml Troponin I (0-0.045) ng/ml Total Protein (6.4-8.2) gm/dl Albumin (3.4-5.0) gm/dl Globulin (2.5-4.0) gm/dl Albumin/Globulin Ratio (0.9-2) Lipase (73-393) U/L Beta-Hydroxybutyric Acd (0.2-2.81) mg/dl TSH (0.300-4.500) uIu/ml Blood Type Antibody Screen 09/24/19 Range/Units 07:29 WBC (4.8-10.8) K/uL RBC (4.7-6.1) M/uL Hgb (14.0-18.0) g/dL POC Hgb (14.0-18.0) g/dl Hct (42-52) % POC Hct (42-52) % MCV (80-100) fL MCH (25-34) pg MCHC (32-36) g/dL RDW Std Deviation (36.4-46.3) fL RDW Coeff of Stephanie (11.5-14.5) % Plt Count (130-400) K/uL MPV (7.4-10.4) fL Immature Gran % (Auto) % Neut % (Auto) % Lymph % (Auto) % Motley % (Auto) % Eos % (Auto) % Baso % (Auto) % Immature Gran # (Auto) (0.00-0.02) K/uL Neut # (Auto) (1.4-6.5) K/uL Lymph # (Auto) (1.2-3.4) K/uL [place]ley # (Auto) (0.11-0.59) K/uL Eos # (Auto) (0-0.5) K/uL Baso # (Auto) (0-0.2) K/uL Platelet Estimate (Normal) PT (9.0-12.0) Seconds INR (0.9-1.1) APTT (21.0-31.0) Seconds PTT Ratio POC Sodium (135-144) mEq/L Sodium (136-145) mmol/L POC Potassium (3.3-5.0) mEq/L Potassium (3.5-5.1) mmol/L POC Chloride (101-112) mEq/L Chloride (98-107) mmol/L Carbon Dioxide (21-32) mmol/L POC Total CO2 (24-31) mEq/l Anion Gap (3-11) POC Anion Gap (16-25) mmol/L POC BUN (7-18) mg/dl BUN (7-18) mg/dl Creatinine (0.6-1.4) mg/dl POC Creatinine (0.6-1.3) mg/dl Est Cr Clr Drug Dosing ml/min Est GFR ( Amer) Est GFR (Non-Af Amer) BUN/Creatinine Ratio (10-20) Glucose (70-99) mg/dl POC Glucose (other) (70-99) mg/dl Estimat Average Glucose mg/dl Hemoglobin A1c (4.5-5.6) % Calcium (8.5-10.1) mg/dl POC Ioniz Calcium Ky (1.12-1.32) mmol/l Magnesium (1.8-2.4) mg/dl Total Bilirubin (0.2-1) mg/dl AST (15-37) U/L ALT (12-78) U/L Alkaline Phosphatase (45-117) U/L Total Creatine Kinase (39-308) U/L CK-MB (CK-2) (0.5-3.6) ng/ml CK/CKMB % Calc (0-3.0) POC Troponin I (0-0.045) ng/ml Troponin I (0-0.045) ng/ml Total Protein (6.4-8.2) gm/dl Albumin (3.4-5.0) gm/dl Globulin (2.5-4.0) gm/dl Albumin/Globulin Ratio (0.9-2) Lipase (73-393) U/L Beta-Hydroxybutyric Acd (0.2-2.81) mg/dl TSH (0.300-4.500) uIu/ml Blood Type A Positive Antibody Screen NEGATIVE Imaging Data Radiologist's Impression: Radiology results as stated below per my review and t he radiologist's interpretation: XR chest 1V portable HISTORY: 69 years-old Male Chest pain acute atypical chest pain COMPARISON: Chest radiographs 10/22/2016 TECHNIQUE: Portable AP view of the chest FINDINGS: Endotracheal tube terminates 4.2 cm superior to the rohini. Calcified plaque of the thoracic aortic arch. No pneumothorax, pleural effusion, focal airspace consolidation or overt pulmonary edema. Cardiac silhouette is enlarged. Degenerative changes of the shoulders and spine. IMPRESSION: 1. Endotracheal tube terminates 4.2 cm superior to the rohini. 2. Cardiomegaly. The above report was generated using voice recognition software. It may contain grammatical, syntax or spelling errors. Electronically signed by: Damon Cao M.D. 09/24/2019 7:36 AM ECG Data Attestation: I personally reviewed and interpreted this ECG as follows: Indication: + chest pain Rate (beats per minute): 70 Rhythm: + other (paced) ECG Findings: + Other (otherwise unable to read) Blood Pressure Blood Pressure Findings: Elevated blood pressure Blood Pressure Disposition: elevated BP felt to be situational MDM Narrative Pt ill appearing with concerning prehospital presentation and EKG's. Initial EKG for EMS suggestive of heart block. Due to concern for clinical condition and intermittent pauses noted, pt started on transthoracic pacing. Pt was tolerating this fairly well, but still having intermittent episodes of LOC. Due to concern for deterioration of clinical condition and need for airway protection, pt intubated without difficulty. We continued to have difficulty obtaining accurate pulse, although RT digital read out was reassuring and seemed to correlate clinically. I did not feel BP's on automatic cuff were accurate so I asked several times for nursing staff to obtain a manual BP. Initial one reported to me as 110/P, second one 70's/P - at that point we opted to begin dopamine as it was the fastest to start while awaiting cardiology. Once [employer] lab[employer] staff present, they changed out to different defib pads and in that interim, underlying [place] rhythm seen in 70's with ST depression. Initial EKG was paced and indeterminant. Pt with multiple risk factors for CAD and unclear if ACS contributing to underlying electrical etiology. Labs pending, POC's reassuring. No acute findings otw on cxr performed after intubation. Impression & Plan Chest pain, Dizziness, Dysrhythmia, Hyperglycemia, Hypotension, Syncope Discharge Plan Visit Data *Final* Discharge Date/Time: 09/24/19 08:43 Chief Complaint: Chest Pain Stated Complaint: CHEST PAIN ED Provider: Kaylee Matthew Discharge Problem: Chest pain, Dizziness, Dysrhythmia, Hyperglycemia, Hypotension, Syncope Patient Disposition: Admitted As Inpatient Condition: Good Discharge Instructions Interventions: ED Discharge Assessment Last Done: 09/24/19 07:49 Discharge Problem: Chest pain Qualifiers: Chest pain type: unspecified Qualified Code(s): R07.9 - Chest pain, unspecified Dysrhythmia Qualifiers: Arrhythmia type: ventricular fibrillation Qualified Code(s): I49.01 - Ventricul ar fibrillation Hypotension Qualifiers: Hypotension type: unspecified hypotension type Qualified Code(s): I95.9 - Hypotension, unspecified Syncope Qualifiers: Syncope type: unspecified Qualified Code(s): R55 - Syncope and collapse The scribe's documentation has been prepared under my direction and personally r eviewed by me in its entirety. I confirm that the note above accurately reflects all work, treatment, procedures, and medical decision making performed by me.
[2019-09-26] MEDS ORDERED: ETOMIDATE 2 MG/ML 20 ML VIAL IV ONE (18:24)
[2019-09-26] MEDS ORDERED: MIDAZOLAM HCL 5 MG/ML VIAL IV ONE (18:24)
[2019-09-26] MEDS ORDERED: ROCURONIUM BROMIDE 10 MG/ML 10 ML VIAL IV ONE (18:24)
== END 2019-09-26 18:25 | disposition home or self-care (01) | DRG 242 ==
LOC: ED 07:00 → CC 07:49 → 1E 09:14 → 2S 09-25 17:05